=== PATIENT | male | born 1960 | race African-American/Black ===

== ENCOUNTER 2016-03-05 18:42 | Emergency (ER) | payer SELFPAY ==
[~2016-03-05] VITALS: Ht 188 cm; Wt 80.0 kg
[~2016-03-05 18:42] MED LIST: NAPR550T3 PO
[2016-03-05 18:45] VITALS: BP 147/70; PULSE 113; RESP 16; TEMP 98.5; O2SAT 98
[2016-03-05] MEDS ORDERED: SODIUM CHLOR 0.9% 1000 ML INJ 1,000 ML IV SCH (19:34)
[2016-03-05] MEDS ORDERED: ONDANSETRON HCL 4 MG/2 ML VIAL IVP ONE (19:45)
[2016-03-05] MEDS ORDERED: SODIUM CHLORIDE 0.9% FLUSH 5 ML FLUSH IVF PRN (19:45)
--- NOTE | 2016-03-05 20:14 | PD ---
HPI Chief Complaint: GI Complaint Time Seen by Provider: 19:29 Travel History International Travel<30 days: No Contact w/Intl Traveler<30days: No Traveled to known affect area: No History of Present Illness HPI 55-year-old male here for evaluation of nausea, vomiting, and abdominal discomfort. Symptoms started today. Emesis is nonbloody/nonbilious. Abdominal discomfort is mainly epigastric, however patient describes a nauseousness throughout his stomach. No history of abdominal surgeries. No diarrhea. He has had subjective fevers and chills. No cough, CP, or dyspnea. PFSH Past Surgical History Other Surgery: Yes (RIGHT KNEE SURGERY) Social History Alcohol Use: Yes (OCCASSIONAL) Tobacco Use: Yes (1PACK A DAY) Substance Use: No Allergies-Medications (Allergen,Severity, Reaction): Coded Allergies: No Known Allergies (Verified , 12/30/15) Reported Meds & Prescriptions Reported Meds & Active Scripts Active No Active Prescriptions or Reported Medications Review of Systems Except as stated in HPI: all other systems reviewed are Neg Physical Exam Narrative GENERAL: Well-developed, well-nourished, comfortable, no acute distress. SKIN: Warm and dry. No rash. HEAD: Atraumatic. Normocephalic. EYES: Pupils equal and round. No scleral icterus. No injection or drainage. ENT: Mucous membranes pink and moist. NECK: Trachea midline. No JVD. No nuchal rigidity. CARDIOVASCULAR: Regular rate and rhythm. RESPIRATORY: No accessory muscle use. Clear to auscultation. Breath sounds equal bilaterally. GASTROINTESTINAL: Abdomen soft, nondistended. Moderate epigastric tenderness without rebound or guarding. Rest of abdomen is mildly tender. No peritoneal signs. Normal bowel sounds. MUSCULOSKELETAL: No obvious deformities. No clubbing. No cyanosis. No edema. NEUROLOGICAL: Awake and alert. No obvious cranial nerve deficits. Motor grossly within normal limits. Normal speech. PSYCHIATRIC: Appropriate mood and affect; insight and judgment normal. Data Data Last Documented VS Vital Signs Date Time Temp Pulse Resp B/P Pulse Ox O2 Delivery O2 Flow Rate FiO2 03/05/16 20:39 97 03/05/16 20:38 94 20 152/79 03/05/16 18:45 98.5 Orders Complete Blood Count With Diff (03/05/16 19:34) Comprehensive Metabolic Panel (03/05/16 19:34) Lipase (03/05/16 19:34) Prothrombin Time / Inr (Pt) (03/05/16 19:34) Act Partial Throm Time (Ptt) (03/05/16 19:34) Ct Abd/Pel W Iv Contrast(Rout) (03/05/16 19:34) Iv Access Insert/Monitor (03/05/16 19:34) Ecg Monitoring (03/05/16 19:34) Oximetry (03/05/16 19:34) Ondansetron Inj (Zofran Inj) (03/05/16 19:45) Sodium Chlor 0.9% 1000 Ml Inj (Ns 1000 M (03/05/16 19:34) Sodium Chloride 0.9% Flush (Ns Flush) (03/05/16 19:45) Electrocardiogram (03/05/16 19:34) Ckmb (Isoenzyme) Profile (03/05/16 19:34) Troponin I (03/05/16 19:34) Influenzae A/B Antigen (03/05/16 19:38) Pantoprazole Inj (Protonix Inj) (03/05/16 20:15) Al-Mag Hy-Si 40-40-4 Mg/Ml Liq (Mag-Al P (03/05/16 20:15) Lidocaine 2% Viscous (Xylocaine 2% Visco (03/05/16 20:15) CKMB (03/05/16 20:00) CKMB% (03/05/16 20:00) Labs Laboratory Tests Test 03/05/16 20:00 White Blood Count 11.7 TH/MM3 Red Blood Count 4.49 MIL/MM3 Hemoglobin 13.3 GM/DL Hematocrit 40.0 % Mean Corpuscular Volume 89.2 FL Mean Corpuscular Hemoglobin 29.7 PG Mean Corpuscular Hemoglobin 33.3 % Concent Red Cell Distribution Width 14.9 % Platelet Count 497 TH/MM3 Mean Platelet Volume 8.6 FL Neutrophils (%) (Auto) 92.0 % Lymphocytes (%) (Auto) 3.1 % Monocytes (%) (Auto) 3.5 % Eosinophils (%) (Auto) 0.9 % Basophils (%) (Auto) 0.5 % Neutrophils # (Auto) 10.7 TH/MM3 Lymphocytes # (Auto) 0.4 TH/MM3 Monocytes # (Auto) 0.4 TH/MM3 Eosinophils # (Auto) 0.1 TH/MM3 Basophils # (Auto) 0.1 TH/MM3 CBC Comment DIFF FINAL Differential Comment Prothrombin Time 10.4 SEC Prothromb Time International 0.9 RATIO Ratio Activated Partial 26.2 SEC Thromboplast Time Sodium Level 137 MEQ/L Potassium Level 4.1 MEQ/L Chloride Level 103 MEQ/L Carbon Dioxide Level 22.9 MEQ/L Anion Gap 11 MEQ/L Blood Urea Nitrogen 19 MG/DL Creatinine 1.24 MG/DL Estimat Glomerular Filtration 74 ML/MIN Rate Random Glucose 103 MG/DL Calcium Level 9.4 MG/DL Total Bilirubin 0.6 MG/DL Aspartate Amino Transf 24 U/L (AST/SGOT) Alanine Aminotransferase 22 U/L (ALT/SGPT) Alkaline Phosphatase 144 U/L Total Creatine Kinase 356 U/L Creatine Kinase MB 2.6 NG/ML Creatine Kinase MB % 0.7 % Troponin I LESS THAN 0.02 NG/ML Total Protein 8.8 GM/DL Albumin 4.0 GM/DL Lipase 81 U/L [facility] Medical Decision Making Medical Screen Exam Complete: Yes Emergency Medical Condition: Yes Interpretation(s) EKG: Sinus, rate 82, normal axis, normal intervals, no acute ischemic abnormality. Differential Diagnosis Gastritis, enteritis, peptic ulcer disease, pancreatitis, hepatobiliary disease , viral illness, ACS Narrative Course Vital signs reviewed. CBC is essentially unremarkable. CMP is unremarkable. Cardiac enzymes are negative. Lipase is 81. At 9:00 PM at the end of my shift the patient was signed out to my nurse practitioner who will follow up with CT abdomen and pelvis and disposition the patient. Prior to this the patient was reassessed and is feeling a lot better after receiving antiemetics, Protonix, and GI cocktail. Scripts No Active Prescriptions or Reported Meds Paulino Ayala MD Mar 05, 2016 20:14
[2016-03-05] MEDS ORDERED: LIDOCAINE VISCOUS 2% SOLN 15 ML UDC PO ONE (20:15)
[2016-03-05] MEDS ORDERED: ALUMINUM/MAGNESIUM/SIMETH 30 ML CUP PO ONE (20:15)
[2016-03-05] MEDS ORDERED: PANTOPRAZOLE SODIUM 40 MG VIAL IVP ONE (20:15)
[2016-03-05 20:28] LABS: AUTOMATED NEUTROPHIL # 10.7 TH/MM3 (1.8-7.7); BASOPHIL # 0.1 TH/MM3 (0-0.2); BASOPHIL % 0.5 % (0.0-2.0); EOSINOPHIL # 0.1 TH/MM3 (0-0.4); EOSINOPHIL % 0.9 % (0.0-4.0); HEMO FLAGS DIFF FINAL; LYMPH % 3.1 % (9.0-44.0); LYMPHOCYTE # 0.4 TH/MM3 (1.0-4.8); MEAN CELL VOLUME 89.2 FL (80.0-100.0); MEAN CORPUSCULAR HEMOGLOBIN 29.7 PG (27.0-34.0); MEAN CORPUSCULAR HGB CONC 33.3 % (32.0-36.0); MONO % 3.5 % (0.0-8.0); PLATELET COUNT 497 TH/MM3 (150-450); RED BLOOD COUNT 4.49 MIL/MM3 (4.50-5.90); RED CELL DISTRIBUTION WIDTH 14.9 % (11.6-17.2); WHITE BLOOD COUNT 11.7 TH/MM3 (4.0-11.0)
[2016-03-05 20:34] LABS: APTT (PATIENT) 26.2 SEC (24.3-30.1); INTERNATIONAL NORMALIZED RATIO 0.9 RATIO; PROTHROMBIN TIME - PATIENT 10.4 SEC (9.8-11.6)
[2016-03-05 20:38] VITALS: BP 152/79; PULSE 94; RESP 20; O2SAT 97
[2016-03-05 20:39] VITALS: O2SAT 97
[2016-03-05 20:50] LABS: ALKALINE PHOSPHATASE 144 U/L (45-117); ALT (GPT) 22 U/L (12-78); ANION GAP 11 MEQ/L (5-15); AST (GOT) 24 U/L (15-37); BICARBONATE 22.9 MEQ/L (21.0-32.0); BLOOD UREA NITROGEN 19 MG/DL (7-18); CHLORIDE 103 MEQ/L (98-107); CREATINE KINASE 356 U/L (39-308); GLOMERULAR FILTRATION RATE 74 ML/MIN (>89); SODIUM (NA) 137 MEQ/L (136-145); TOTAL BILIRUBIN ADULT 0.6 MG/DL (0.2-1.0)
[2016-03-05 20:51] LABS: POTASSIUM 4.1 MEQ/L (3.5-5.1)
[2016-03-05 21:04] LABS: CKMB 2.6 NG/ML (0.5-3.6)
[2016-03-05] MEDS ORDERED: IOHEXOL 350 MG/ML 10 ML VIAL (for RAD DIAG) IV ONE (21:27)
[2016-03-05 21:48] VITALS: BP 143/77; PULSE 93; RESP 20; O2SAT 100
--- NOTE | 2016-03-05 21:53 | RADRPT ---
EXAM DATE/TIME: 03/05/2016 21:25 [facility] COMPARISON: No previous studies available for comparison. INDICATIONS : Nausea and vomiting starting today. IV CONTRAST: 94 cc Omnipaque 350 (iohexol) IV ORAL CONTRAST: No oral contrast ingested. RADIATION DOSE: 5.00 CTDIvol (mGy) MEDICAL HISTORY : None SURGICAL HISTORY : None. ENCOUNTER: Initial ACUITY: 1 day PAIN SCALE: 2/10 LOCATION: Bilateral abdomen TECHNIQUE: Volumetric scanning of the abdomen and pelvis was performed. Using automated exposure control and ad justment of the mA and/or kV according to patient size, radiation dose was kept as low as reasonably achievable to obtain optimal diagnostic quality images. FINDINGS: LOWER LUNGS: Minimal atelectasis in the posterior right lung base LIVER: Homogeneous density without lesion. There is no dilation of the biliary tree. No calcified gallston es. SPLEEN: Normal size without lesion. PANCREAS: Within normal limits. KIDNEYS: Normal in size and shape. There is no mass, stone or hydronephrosis. ADRENAL GLANDS: There is a large heterogeneous mass involving the left adrenal gland measuring 7 x 4.2 x 4.9 cm (sagi ttal x AP x transverse). The right adrenal gland is normal in appearance. VASCULAR: Patchy atherosclerotic calcification. No evidence of aneurysm. No major vessel occlusion. BOWEL/MESENTERY: The stomach is mildly distended with fluid and air. The first portion of the duodenum is mildly dilat ed. Beyond this, the duodenum is contracted, potentially with wall thickening in the second portion w hich may indicate a partially obstructing mural or mucosal process. Oral contrast was not given for t he exam which limits the evaluation. There is mild nonspecific fluid distention of other small bowel loops. The colon is grossly normal in caliber with stool throughout. ABDOMINAL WALL: Within normal limits. RETROPERITONEUM: There is no lymphadenopathy. BLADDER: No wall thickening or mass. REPRODUCTIVE: Within normal limits. INGUINAL: There is no lymphadenopathy or hernia. MUSCULOSKELETAL: Mild degenerative changes. CONCLUSION: Large left adrenal mass. Possible mural or mucosal process involving the duodenum. Marlon Burgess MD on March 05, 2016 at 21:41 Board Certified Radiologist. This report was verified electronically.
[2016-03-05] MEDS ORDERED: ZOFR4TAB3 SL (22:43)
--- NOTE | 2016-03-05 22:44 | PD ---
Physical Exam Time Seen by Provider: 22:40 Narrative Please refer to previous providers documentation for details surrounding the patient's current visit. Data Data Last Documented VS Vital Signs Date Time Temp Pulse Resp B/P Pulse Ox O2 Delivery O2 Flow Rate FiO2 03/05/16 21:48 93 20 143/77 100 03/05/16 18:45 98.5 Orders Complete Blood Count With Diff (03/05/16 19:34) Comprehensive Metabolic Panel (03/05/16 19:34) Lipase (03/05/16 19:34) Prothrombin Time / Inr (Pt) (03/05/16 19:34) Act Partial Throm Time (Ptt) (03/05/16 19:34) Ct Abd/Pel W Iv Contrast(Rout) (03/05/16 19:34) Iv Access Insert/Monitor (03/05/16 19:34) Ecg Monitoring (03/05/16 19:34) Oximetry (03/05/16 19:34) Ondansetron Inj (Zofran Inj) (03/05/16 19:45) Sodium Chlor 0.9% 1000 Ml Inj (Ns 1000 M (03/05/16 19:34) Sodium Chloride 0.9% Flush (Ns Flush) (03/05/16 19:45) Electrocardiogram (03/05/16 19:34) Ckmb (Isoenzyme) Profile (03/05/16 19:34) Troponin I (03/05/16 19:34) Influenzae A/B Antigen (03/05/16 19:38) Pantoprazole Inj (Protonix Inj) (03/05/16 20:15) Al-Mag Hy-Si 40-40-4 Mg/Ml Liq (Mag-Al P (03/05/16 20:15) Lidocaine 2% Viscous (Xylocaine 2% Visco (03/05/16 20:15) CKMB (03/05/16 20:00) CKMB% (03/05/16 20:00) Iohexol 350 Inj (Omnipaque 350 Inj) (03/05/16 21:27) Labs Laboratory Tests Test 03/05/16 20:00 White Blood Count 11.7 TH/MM3 Red Blood Count 4.49 MIL/MM3 Hemoglobin 13.3 GM/DL Hematocrit 40.0 % Mean Corpuscular Volume 89.2 FL Mean Corpuscular Hemoglobin 29.7 PG Mean Corpuscular Hemoglobin 33.3 % Concent Red Cell Distribution Width 14.9 % Platelet Count 497 TH/MM3 Mean Platelet Volume 8.6 FL Neutrophils (%) (Auto) 92.0 % Lymphocytes (%) (Auto) 3.1 % Monocytes (%) (Auto) 3.5 % Eosinophils (%) (Auto) 0.9 % Basophils (%) (Auto) 0.5 % Neutrophils # (Auto) 10.7 TH/MM3 Lymphocytes # (Auto) 0.4 TH/MM3 Monocytes # (Auto) 0.4 TH/MM3 Eosinophils # (Auto) 0.1 TH/MM3 Basophils # (Auto) 0.1 TH/MM3 CBC Comment DIFF FINAL Differential Comment Prothrombin Time 10.4 SEC Prothromb Time International 0.9 RATIO Ratio Activated Partial 26.2 SEC Thromboplast Time Sodium Level 137 MEQ/L Potassium Level 4.1 MEQ/L Chloride Level 103 MEQ/L Carbon Dioxide Level 22.9 MEQ/L Anion Gap 11 MEQ/L Blood Urea Nitrogen 19 MG/DL Creatinine 1.24 MG/DL Estimat Glomerular Filtration 74 ML/MIN Rate Random Glucose 103 MG/DL Calcium Level 9.4 MG/DL Total Bilirubin 0.6 MG/DL Aspartate Amino Transf 24 U/L (AST/SGOT) Alanine Aminotransferase 22 U/L (ALT/SGPT) Alkaline Phosphatase 144 U/L Total Creatine Kinase 356 U/L Creatine Kinase MB 2.6 NG/ML Creatine Kinase MB % 0.7 % Troponin I LESS THAN 0.02 NG/ML Total Protein 8.8 GM/DL Albumin 4.0 GM/DL Lipase 81 U/L [facility] Medical Record Reviewed: Yes Supervised Visit with ANAID: No Narrative Course Patient was signed out to me a CT imaging pending. CT imaging results a large left adrenal mass. Possible mural and mucosal process involving the duodenum. I discussed the patient my attending physician Dr. Wilcox, since Dr. Ayala has left, and she recommends admission for further evaluation of this. I discussed the patient with the hospitalist Dr. Avendaño who feels the patient can be worked up outpatient. This is discussed with the patient. He is in agreement with this plan of care however follow-up may be difficult due to no insurance no primary. A mandatory referral has been placed. Diagnosis Primary Impression: Nausea & vomiting Qualified Code: R11.14 - Bilious vomiting with nausea Additional Impression: Adrenal mass, left Referrals: Room Worker Primary Care Physician Patient Instructions: Acute Nausea and Vomiting (ED), General Instructions Additional Instruction: Follow-up with your primary care provider Maintain adequate oral hydration Return immediately to the emergency department with any acute worsening of symptoms Med/Other Pt SpecificInfo: Prescription(s) given Scripts Ondansetron Odt (Zofran Odt)4 Mg Tab4 Mg SL Q6HR PRN (Nausea/Vomiting) #15 TAB Ref 0 Prov:Lora Garza 03/05/16 Disposition: 01 DISCHARGE HOME Condition: Stable Lora Garza Mar 05, 2016 22:44
[2016-03-05] MEDS ORDERED: ACETAMINOPHEN 325 MG TAB PO ONE (22:45)
[2016-03-05 23:12] VITALS: BP 133/83
--- NOTE | 2016-03-06 19:31 | EKG ---
Date Performed: 03/05/2016 Time Performed: 20:15:39 PTAGE: 55 years EKG: Sinus rhythm NONSPECIFIC T-WAVE ABNORMALITY BORDERLINE ECG NO PREVIOUS TRACING DOCTOR: Anatoliy Townsend Interpretating Date/Time 03/06/2016 19:28:54
== END 2016-03-06 01:22 | disposition home or self-care (01) ==
LOC: NEPA 18:42
DX: E27.9 Disorder of adrenal gland, unspecified (principal); R94.31 Abnormal electrocardiogram [ECG] [EKG]; F17.210 Nicotine dependence, cigarettes, uncomplicated
CPT/HCPCS: 74177; 80053; 82550; 82552; 83690; 84484; 85025; 85610; 85730; 87804; 93005; 96361; 96374; 99284; C9113; J2405; J7030; Q9967

== ENCOUNTER 2016-10-20 12:16 | Emergency (ER) | payer SELFPAY ==
[~2016-10-20] VITALS: Ht 188 cm; Wt 80.0 kg
[~2016-10-20 12:16] MED LIST changes: -NAPR550T3 PO; +ZOFR4TAB3 SL
[2016-10-20 12:18] VITALS: BP 163/80; PULSE 80; RESP 20; TEMP 98.3; O2SAT 97
--- NOTE | 2016-10-20 14:15 | RADRPT ---
EXAM DATE/TIME: 10/20/2016 13:56 [facility] COMPARISON: No previous studies available for comparison. INDICATIONS : Left side chest pain and cramping. MEDICAL HISTORY : None. SURGICAL HISTORY : Right knee. ENCOUNTER: Initial ACUITY: 2 days PAIN SCORE: 6/10 LOCATION: Bilateral chest FINDINGS: PA and lateral views of the chest demonstrate the lungs to be symmetrically aerated without evidence of mass, infiltrate or effusion. The cardiomediastinal contours are unremarkable. Osseous structure s are intact. CONCLUSION: 1. No acute cardiopulmonary disease. Duncan Miranda MD on October 20, 2016 at 14:13 Board Certified Radiologist. This report was verified electronically.
[2016-10-20 14:30] LABS: AUTOMATED NEUTROPHIL # 7.8 TH/MM3 (1.8-7.7); BASOPHIL # 0.1 TH/MM3 (0-0.2); BASOPHIL % 1.3 % (0.0-2.0); EOSINOPHIL # 0.2 TH/MM3 (0-0.4); EOSINOPHIL % 2.2 % (0.0-4.0); HEMATOCRIT 31.8 % (39.0-51.0); HEMO FLAGS DIFF FINAL; LYMPHOCYTE # 1.3 TH/MM3 (1.0-4.8); MEAN CELL VOLUME 86.7 FL (80.0-100.0); MEAN CORPUSCULAR HEMOGLOBIN 26.9 PG (27.0-34.0); MONO % 4.1 % (0.0-8.0); NEUT % 79.4 % (16.0-70.0); PLATELET COUNT 657 TH/MM3 (150-450); RED BLOOD COUNT 3.67 MIL/MM3 (4.50-5.90); RED CELL DISTRIBUTION WIDTH 16.6 % (11.6-17.2); WHITE BLOOD COUNT 9.8 TH/MM3 (4.0-11.0)
[2016-10-20 14:47] LABS: ANION GAP 8 MEQ/L (5-15); BICARBONATE 30.4 MEQ/L (21.0-32.0); BLOOD UREA NITROGEN 13 MG/DL (7-18); CHLORIDE 103 MEQ/L (98-107); GLOMERULAR FILTRATION RATE 73 ML/MIN (>89); POTASSIUM 3.9 MEQ/L (3.5-5.1); SODIUM (NA) 141 MEQ/L (136-145)
[2016-10-20 14:50] LABS: CREATINE KINASE 439 U/L (39-308)
[2016-10-20 15:03] LABS: CKMB 5.9 NG/ML (0.5-3.6)
--- NOTE | 2016-10-20 15:29 | PD ---
Physical Exam Date Seen by Provider: Oct 20, 2016 Time Seen by Provider: 15:28 Narrative 56 yr old male here with c/o chest pain. He is awaiting bed placement. Protocol labs have been drawn. Troponin is negative. Data Data Last Documented VS Vital Signs Date Time Temp Pulse Resp B/P (MAP) Pulse Ox O2 Delivery O2 Flow Rate FiO2 10/20/16 12:18 98.3 80 20 163/80 (107) 97 Orders Orders Electrocardiogram (10/20/16 13:08) Complete Blood Count With Diff (10/20/16 13:08) Basic Metabolic Panel (Bmp) (10/20/16 13:08) Ckmb (Isoenzyme) Profile (10/20/16 13:08) Troponin I (10/20/16 13:08) Iv Access Insert/Monitor (10/20/16 13:08) Ecg Monitoring (10/20/16 13:08) Oxygen Administration (10/20/16 13:08) Oximetry (10/20/16 13:08) Chest, Pa & Lat (10/20/16 13:08) CKMB (10/20/16 13:35) CKMB% (10/20/16 13:35) Labs Laboratory Tests Test 10/20/16 13:35 White Blood Count 9.8 TH/MM3 Red Blood Count 3.67 MIL/MM3 Hemoglobin 9.8 GM/DL Hematocrit 31.8 % Mean Corpuscular Volume 86.7 FL Mean Corpuscular Hemoglobin 26.9 PG Mean Corpuscular Hemoglobin Concent 31.0 % Red Cell Distribution Width 16.6 % Platelet Count 657 TH/MM3 Mean Platelet Volume 7.9 FL Neutrophils (%) (Auto) 79.4 % Lymphocytes (%) (Auto) 13.0 % Monocytes (%) (Auto) 4.1 % Eosinophils (%) (Auto) 2.2 % Basophils (%) (Auto) 1.3 % Neutrophils # (Auto) 7.8 TH/MM3 Lymphocytes # (Auto) 1.3 TH/MM3 Monocytes # (Auto) 0.4 TH/MM3 Eosinophils # (Auto) 0.2 TH/MM3 Basophils # (Auto) 0.1 TH/MM3 CBC Comment DIFF FINAL Differential Comment Blood Urea Nitrogen 13 MG/DL Creatinine 1.24 MG/DL Random Glucose 203 MG/DL Calcium Level 9.1 MG/DL Sodium Level 141 MEQ/L Potassium Level 3.9 MEQ/L Chloride Level 103 MEQ/L Carbon Dioxide Level 30.4 MEQ/L Anion Gap 8 MEQ/L Estimat Glomerular Filtration Rate 73 ML/MIN Total Creatine Kinase 439 U/L Creatine Kinase MB 5.9 NG/ML Creatine Kinase MB % 1.3 % Troponin I LESS THAN 0.02 NG/ML MDM Medical Record Reviewed: Yes Supervised Visit with ANAID: No Condition: Stable Hattie Canales Oct 20, 2016 15:29
[2016-10-20 16:36] VITALS: BP 189/100; PULSE 71; RESP 18; TEMP 98.2; O2SAT 100
[2016-10-20 16:48] VITALS: BP 169/85; PULSE 76; RESP 18; TEMP 98.2; O2SAT 100
--- NOTE | 2016-10-20 16:58 | PD ---
HPI . chest pain intermittently few days Chief Complaint: Cardiac Complaint Time Seen by Provider: 16:54 Travel History International Travel<30 days: No Contact w/Intl Traveler<30days: No Traveled to known affect area: No History of Present Illness HPI 56-year-old male with no known past medical history here with complaints of chest pain intermittently for the past several days. Patient rates the pain as a mild pain that comes and goes. He thinks that it may be some pulled muscles. He denies any associated nausea, vomiting, diaphoresis or shortness of breath. He does admit to marijuana and cocaine usage. PFSH Past Surgical History Other Surgery: Yes (RIGHT KNEE SURGERY) Social History Alcohol Use: Yes (OCCASSIONAL) Tobacco Use: Yes (1PACK A DAY) Substance Use: Yes (marijuana) Allergies-Medications (Allergen,Severity, Reaction): Coded Allergies: No Known Allergies (Verified , 10/20/16) Reported Meds & Prescriptions Reported Meds & Active Scripts Active Zofran Odt (Ondansetron Odt) 4 Mg Tab 4 Mg SL Q6HR PRN Review of Systems General / Constitutional: No: Fever Eyes: No: Visual changes HENT: No: Headaches Cardiovascular: Positive: Chest Pain or Discomfort Respiratory: No: Shortness of Breath Gastrointestinal: No: Abdominal Pain Genitourinary: No: Dysuria Musculoskeletal: No: Pain Skin: No Rash Neurologic: No: Weakness Psychiatric: No: Depression Endocrine: No: Polydipsia Hematologic/Lymphatic: No: Easy Bruising Physical Exam Narrative GENERAL: AAO x 3, no acute distress, Well-nourished, well-developed patient. SKIN: Warm and dry. No visible rashes or bruising. HEAD: Normocephalic and atraumatic. EYES: No scleral icterus. No injection or drainage. EOM intact, PERRLA ENT: No nasal drainage noted. Mucous membranes pink. Airway patent. NECK: Supple, trachea midline. No JVD. CARDIOVASCULAR: Regular rate and rhythm without murmurs, gallops, or rubs. No reproducible chest pain on examination RESPIRATORY: Breath sounds equal bilaterally. No accessory muscle use. No rhonchi or rales. GASTROINTESTINAL: Abdomen soft, non-tender, nondistended. No rebound or guarding EXTREMITIES: No cyanosis or edema. BACK: Nontender without obvious deformity. No CVA tenderness. NEURO: CN II-12 intact, rippler strength normal b/l, UE and LE 5/5, no focal deficits PSYCH: AAO x 3, normal affect. Data Data Last Documented VS Vital Signs Date Time Temp Pulse Resp B/P (MAP) Pulse Ox O2 Delivery O2 Flow Rate FiO2 10/20/16 16:48 98.2 76 18 169/85 (113) 100 10/20/16 16:36 Room Air Orders Orders Electrocardiogram (10/20/16 13:08) Complete Blood Count With Diff (10/20/16 13:08) Basic Metabolic Panel (Bmp) (10/20/16 13:08) Ckmb (Isoenzyme) Profile (10/20/16 13:08) Troponin I (10/20/16 13:08) Iv Access Insert/Monitor (10/20/16 13:08) Ecg Monitoring (10/20/16 13:08) Oxygen Administration (10/20/16 13:08) Oximetry (10/20/16 13:08) Chest, Pa & Lat (10/20/16 13:08) CKMB (10/20/16 13:35) CKMB% (10/20/16 13:35) Admit Order (Ed Use Only) (10/20/16 17:04) Labs Laboratory Tests Test 10/20/16 13:35 White Blood Count 9.8 TH/MM3 Red Blood Count 3.67 MIL/MM3 Hemoglobin 9.8 GM/DL Hematocrit 31.8 % Mean Corpuscular Volume 86.7 FL Mean Corpuscular Hemoglobin 26.9 PG Mean Corpuscular Hemoglobin Concent 31.0 % Red Cell Distribution Width 16.6 % Platelet Count 657 TH/MM3 Mean Platelet Volume 7.9 FL Neutrophils (%) (Auto) 79.4 % Lymphocytes (%) (Auto) 13.0 % Monocytes (%) (Auto) 4.1 % Eosinophils (%) (Auto) 2.2 % Basophils (%) (Auto) 1.3 % Neutrophils # (Auto) 7.8 TH/MM3 Lymphocytes # (Auto) 1.3 TH/MM3 Monocytes # (Auto) 0.4 TH/MM3 Eosinophils # (Auto) 0.2 TH/MM3 Basophils # (Auto) 0.1 TH/MM3 CBC Comment DIFF FINAL Differential Comment Blood Urea Nitrogen 13 MG/DL Creatinine 1.24 MG/DL Random Glucose 203 MG/DL Calcium Level 9.1 MG/DL Sodium Level 141 MEQ/L Potassium Level 3.9 MEQ/L Chloride Level 103 MEQ/L Carbon Dioxide Level 30.4 MEQ/L Anion Gap 8 MEQ/L Estimat Glomerular Filtration Rate 73 ML/MIN Total Creatine Kinase 439 U/L Creatine Kinase MB 5.9 NG/ML Creatine Kinase MB % 1.3 % Troponin I LESS THAN 0.02 NG/ML MDM Medical Decision Making Medical Screen Exam Complete: Yes Emergency Medical Condition: Yes Medical Record Reviewed: Yes Differential Diagnosis chest pain, ACS, drug abuse Narrative Course 56-year-old male here with complaints of chest pain. Protocols were ordered in triage. Patient appears to have newly diagnosed diabetes. I discussed the preliminary findings with patient and recommend admission to the chest pain center. I also ordered A1c. I stressed need for admission for further testing of cardiac enzymes etc. 1740: Patient decided to leave against medical advice. Admitting Information Admitting Physician Requests: Admit Disposition: AGAINST MEDICAL ADVICE Condition: Stable Hattie Canales Oct 20, 2016 16:58
[2016-10-20] MEDS ORDERED: SODIUM CHLORIDE 0.9% FLUSH 10 ML FLUSH IV FLUSH PRN (17:15)
[2016-10-20] MEDS ORDERED: metFORMIN HCL 500 MG TAB PO SCH (18:00)
[2016-10-20] MEDS ORDERED: SODIUM CHLORIDE 0.9% FLUSH 10 ML FLUSH IV FLUSH SCH (21:00)
--- NOTE | 2016-10-21 09:59 | EKG ---
Date Performed: 10/20/2016 Time Performed: 13:22:00 PTAGE: 56 years EKG: Sinus rhythm NONSPECIFIC T-WAVE ABNORMALITY BORDERLINE ECG PREVIOUS TRACING : 03/05/2016 20.15 DOCTOR: Jad Mo Interpretating Date/Time 10/21/2016 09:58:14
== END 2016-10-20 17:40 | disposition left against medical advice (07) ==
LOC: NEPD 12:16 → NEDA 17:06 → UNDOADMOB 17:06 → NEPD 17:40
DX: R07.9 Chest pain, unspecified (principal); F17.200 Nicotine dependence, unspecified, uncomplicated
CPT/HCPCS: 71020; 80048; 82550; 82552; 84484; 85025; 93005; 99285

== ENCOUNTER 2016-10-22 01:22 | Emergency (ER) | payer SELFPAY ==
[~2016-10-22] VITALS: Ht 188 cm; Wt 75.0 kg
[2016-10-22 01:25] VITALS: BP 191/93; PULSE 84; RESP 16; TEMP 97.8; O2SAT 99
[2016-10-22] MEDS ORDERED: IBUPROFEN 800 MG TAB PO ONE (01:45)
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
[2016-10-22] MEDS ORDERED: CEPH-460 PO (02:08)
[2016-10-22] MEDS ORDERED: DICL75TA PO (02:08)
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
== END 2016-10-22 02:36 | disposition home or self-care (01) ==
LOC: NEPD 01:22
DX: S80.12XA Contusion of left lower leg, initial encounter (principal); S81.812A Laceration without foreign body, left lower leg, initial encounter; V23.4XXA Motorcycle driver injured in collision with car, pick-up truck or van in traffic accident, initial encounter; Y92.414 Local residential or business street as the place of occurrence of the external cause
CPT/HCPCS: 73590; 99283

== ENCOUNTER 2016-11-14 10:20 | Observation (INO) | payer SELFPAY ==
[~2016-11-14] VITALS: Ht 188 cm; Wt 72.8 kg
[2016-11-14] VITALS (9 sets, daily range): BP systolic 127–170; BP diastolic 64–92; PULSE 82–92; RESP 16–18; TEMP 97.3–98.4; O2SAT 99–100
[~2016-11-14 10:20] MED LIST changes: +CEPH-460 PO; +DICL75TA PO; -ZOFR4TAB3 SL
[2016-11-14] MEDS ORDERED: SODIUM CHLOR 0.9% 1000 ML INJ 1,000 ML IV SCH (11:08)
--- NOTE | 2016-11-14 11:14 | PD ---
HPI Chief Complaint: Chest Pain Time Seen by Provider: 11:03 Travel History International Travel<30 days: No Contact w/Intl Traveler<30days: No Traveled to known affect area: No History of Present Illness HPI Patient comes in complaining of left upper quadrant abdominal cramping ongoing intermittently for several weeks. Pain radiates into his left lower chest describes as a soreness that is worse with deep inspiration. Denies anything making it better. Patient states he was seen here 2 weeks ago for similar and just not resolved yet. Patient denies any shortness of breath, fevers, nausea, vomiting, diarrhea, back pain, headache, change in vision, numbness or tingling anywhere, or loss change in bowel or bladder. PFSH Past Medical History Cardiovascular Problems: Yes Chest Pain: Yes Diminished Hearing: No Tetanus Vaccination: < 5 Years Influenza Vaccination: No Past Surgical History Other Surgery: Yes (RIGHT KNEE SURGERY) Social History Alcohol Use: Yes (OCCASSIONAL) Tobacco Use: Yes (1PACK A DAY) Substance Use: Yes (marijuana) Allergies-Medications (Allergen,Severity, Reaction): Coded Allergies: No Known Allergies (Verified , 10/20/16) Reported Meds & Prescriptions Reported Meds & Active Scripts Active No Active Prescriptions or Reported Medications Review of Systems Except as stated in HPI: all other systems reviewed are Neg Physical Exam Narrative GENERAL: Well-developed, well nourished, in no acute distress, and non-ill appearing. Eating a sandwich. SKIN: Focused skin assessment warm and dry. HEAD: Atraumatic. Normocephalic. EYES: Pupils equal and round. EOMI. No scleral icterus. No injection or drainage. ENT: No nasal bleeding or discharge. Mucous membranes pink and moist. NECK: Trachea midline. No JVD. Supple. No nuclear rigidity. CARDIOVASCULAR: Regular rate and rhythm. No murmur appreciated. RESPIRATORY: No accessory muscle use. No respiratory distress. Clear to auscultation. Breath sounds equal bilaterally. GASTROINTESTINAL: Abdomen soft, non-tender, nondistended, and no guarding. Hepatic and splenic margins not palpable. Normal bowel sounds 4. No pulsatile mass. MUSCULOSKELETAL: No obvious deformities. No clubbing. No cyanosis. No edema. Full range of motion. NEUROLOGICAL: Awake and alert. No obvious cranial nerve deficits. Motor grossly within normal limits. Normal speech. PSYCHIATRIC: Appropriate mood and affect; insight and judgment normal. Data Data Last Documented VS Vital Signs Date Time Temp Pulse Resp B/P (MAP) Pulse Ox O2 Delivery O2 Flow Rate FiO2 11/14/16 13:42 97.8 83 16 146/89 (108) 100 Room Air Orders Orders Electrocardiogram (11/14/16 ) Complete Blood Count With Diff (11/14/16 11:08) Comprehensive Metabolic Panel (11/14/16 11:08) Lipase (11/14/16 11:08) Prothrombin Time / Inr (Pt) (11/14/16 11:08) Act Partial Throm Time (Ptt) (11/14/16 11:08) Iv Access Insert/Monitor (11/14/16 11:08) Ecg Monitoring (11/14/16 11:08) Oximetry (11/14/16 11:08) Sodium Chlor 0.9% 1000 Ml Inj (Ns 1000 M (11/14/16 11:08) Sodium Chloride 0.9% Flush (Ns Flush) (11/14/16 11:15) Chest, Single Ap (11/14/16 11:08) Ckmb (Isoenzyme) Profile (11/14/16 11:08) Magnesium (Mg) (11/14/16 11:08) Troponin I (11/14/16 11:08) CKMB (11/14/16 11:20) CKMB% (11/14/16 11:20) Ct Abd/Pel W Iv Contrast(Rout) (11/14/16 ) Direct Cheng (11/14/16 13:04) Indirect Cheng (11/14/16 13:04) Ferritin (11/14/16 13:25) Ldh Serum (11/14/16 13:25) Consult Hematology (11/14/16 ) Iohexol 350 Inj (Omnipaque 350 Inj) (11/14/16 13:30) Admit Order (Ed Use Only) (11/14/16 13:48) Labs Laboratory Tests Test 11/14/16 11:20 11/14/16 13:45 White Blood Count 8.1 TH/MM3 Red Blood Count 3.36 MIL/MM3 Hemoglobin 8.8 GM/DL Hematocrit 27.8 % Mean Corpuscular Volume 82.7 FL Mean Corpuscular Hemoglobin 26.2 PG Mean Corpuscular Hemoglobin Concent 31.7 % Red Cell Distribution Width 17.3 % Platelet Count 726 TH/MM3 Mean Platelet Volume 7.5 FL Neutrophils (%) (Auto) 69.7 % Lymphocytes (%) (Auto) 17.1 % Monocytes (%) (Auto) 11.0 % Eosinophils (%) (Auto) 1.7 % Basophils (%) (Auto) 0.5 % Neutrophils # (Auto) 5.7 TH/MM3 Lymphocytes # (Auto) 1.4 TH/MM3 Monocytes # (Auto) 0.9 TH/MM3 Eosinophils # (Auto) 0.1 TH/MM3 Basophils # (Auto) 0.0 TH/MM3 CBC Comment DIFF FINAL Differential Comment Prothrombin Time 10.0 SEC Prothromb Time International Ratio 0.9 RATIO Activated Partial Thromboplast Time 31.7 SEC Blood Urea Nitrogen 16 MG/DL Creatinine 1.06 MG/DL Random Glucose 108 MG/DL Total Protein 8.1 GM/DL Albumin 3.1 GM/DL Calcium Level 9.4 MG/DL Magnesium Level 2.0 MG/DL Alkaline Phosphatase 142 U/L Aspartate Amino Transf (AST/SGOT) 22 U/L Alanine Aminotransferase (ALT/SGPT) 21 U/L Total Bilirubin 0.2 MG/DL Sodium Level 138 MEQ/L Potassium Level 4.0 MEQ/L Chloride Level 103 MEQ/L Carbon Dioxide Level 24.9 MEQ/L Anion Gap 10 MEQ/L Estimat Glomerular Filtration Rate 88 ML/MIN Total Creatine Kinase 384 U/L Creatine Kinase MB 4.9 NG/ML Creatine Kinase MB % 1.3 % Troponin I LESS THAN 0.02 NG/ML Lipase 109 U/L MDM Medical Decision Making Medical Screen Exam Complete: Yes Emergency Medical Condition: Yes Interpretation(s) EKG reviewed by Dr. Triana shows normal sinus rhythm with ventricular rate of 78. No STEMI. Chest x-ray read by the radiologist shows: No acute disease. CT the abdomen and pelvis read by the radiologist shows: 1. Increase in size of heterogeneously enhancing left adrenal mass. Left adrenal carcinoma can have this appearance or other entities such as pheochromocytoma. 2. Atherosclerosis. Differential Diagnosis Electrolyte abnormality, dehydration, atypical chest pain, pancreatitis, anemia , other Narrative Course Patient was seen and examined. Initial laboratory and radiological studies were ordered. Patient is given IV fluid. Patient remained pain free throughout ED course. Discussed patient with Dr. Triana, is in agreement with plan of care and recommendations and patient admitted for further evaluation. Discussed this with the patient, who is agreeable for admission. All questions were answered. Discussed patient with hematology who is agreeable to consult the patient. Discussed patient with hospitalist, who is agreeable to admit the patient. Patient remained stable throughout ED course. HemaPrompt Point of Care Internal Pos. & Neg. Controls: Passed Fecal Specimen Occult Blood: Negative Comment Verbal consent was obtained. Digital rectal exam was performed. Stool specimen applied and test interpreted between 1 and 3 minutes of application and the result was negative. Internal Controls: Both positive and negative controls were validated. body and fender worker was present during this exam. Physician Communication Physician Communication [address] Duong, oncologist on-call, who requested a ferritin LDH study be added and he will be happy to consult on patient. [address] Norwood, who is agreeable to admit the patient. [address] Forman, who is agreeable to admit patient. Diagnosis Primary Impression: Abdominal pain Qualified Codes: R10.12 - Left upper quadrant pain Additional Impressions: Chest pain Qualified Codes: R07.9 - Chest pain, unspecified Anemia Qualified Codes: D64.9 - Anemia, unspecified Thrombophilia Adrenal mass, left Scripts No Active Prescriptions or Reported Meds Condition: Stable Jose Cordoba Nov 14, 2016 11:14
[2016-11-14] MEDS ORDERED: SODIUM CHLORIDE 0.9% FLUSH 10 ML FLUSH IV FLUSH PRN ×2 (11:15→15:00)
[2016-11-14 11:36] LABS: AUTOMATED NEUTROPHIL # 5.7 TH/MM3 (1.8-7.7); BASOPHIL % 0.5 % (0.0-2.0); EOSINOPHIL # 0.1 TH/MM3 (0-0.4); EOSINOPHIL % 1.7 % (0.0-4.0); HEMATOCRIT 27.8 % (39.0-51.0); HEMO FLAGS DIFF FINAL; LYMPH % 17.1 % (9.0-44.0); LYMPHOCYTE # 1.4 TH/MM3 (1.0-4.8); MEAN CELL VOLUME 82.7 FL (80.0-100.0); MEAN CORPUSCULAR HEMOGLOBIN 26.2 PG (27.0-34.0); MEAN CORPUSCULAR HGB CONC 31.7 % (32.0-36.0); NEUT % 69.7 % (16.0-70.0); PLATELET COUNT 726 TH/MM3 (150-450); RED BLOOD COUNT 3.36 MIL/MM3 (4.50-5.90); RED CELL DISTRIBUTION WIDTH 17.3 % (11.6-17.2); WHITE BLOOD COUNT 8.1 TH/MM3 (4.0-11.0)
[2016-11-14 11:45] LABS: APTT (PATIENT) 31.7 SEC (24.3-30.1); INTERNATIONAL NORMALIZED RATIO 0.9 RATIO
[2016-11-14 11:57] LABS: ANION GAP 10 MEQ/L (5-15); AST (GOT) 22 U/L (15-37); BICARBONATE 24.9 MEQ/L (21.0-32.0); BLOOD UREA NITROGEN 16 MG/DL (7-18); CHLORIDE 103 MEQ/L (98-107); GLOMERULAR FILTRATION RATE 88 ML/MIN (>89); SODIUM (NA) 138 MEQ/L (136-145)
[2016-11-14 11:58] LABS: ALT (GPT) 21 U/L (12-78)
[2016-11-14 12:02] LABS: ALKALINE PHOSPHATASE 142 U/L (45-117); CREATINE KINASE 384 U/L (39-308); TOTAL BILIRUBIN ADULT 0.2 MG/DL (0.2-1.0)
[2016-11-14 12:14] LABS: CKMB 4.9 NG/ML (0.5-3.6)
--- NOTE | 2016-11-14 12:53 | RADRPT ---
EXAM DATE/TIME: 11/14/2016 11:29 [facility] COMPARISON: No previous studies available for comparison. INDICATIONS : Left lower chest pains radiating to midsternal and left shoulder. Left upper abdomen pains. MEDICAL HISTORY : Venous insufficiency. SURGICAL HISTORY : None. ENCOUNTER: Initial ACUITY: 2 days PAIN SCORE: 10/10 LOCATION: Left chest FINDINGS: A single view of the chest demonstrates the lungs to be symmetrically aerated without evidence of mas s, infiltrate or effusion. The cardiomediastinal contours are unremarkable. Osseous structures are intact. CONCLUSION: No acute disease. Hood Schaefer MD on November 14, 2016 at 12:51 Board Certified Radiologist. This report was verified electronically.
--- NOTE | 2016-11-14 12:55 | EKG ---
Date Performed: 11/14/2016 Time Performed: 10:38:38 PTAGE: 56 years EKG: Normal Sinus rhythm Previous flattened T-waves have resolved BORDERLINE ECG PREVIOUS TRACING : 10/20/2016 13.22 DOCTOR: Josafat Hassan Interpretating Date/Time 11/14/2016 12:54:27
[2016-11-14] MEDS ORDERED: IOHEXOL 350 MG/ML 10 ML VIAL (for RAD DIAG) IVCONTRAST ONE ×2 (13:30→13:52)
--- NOTE | 2016-11-14 14:05 | RADRPT ---
EXAM DATE/TIME: 11/14/2016 13:22 [facility] COMPARISON: CT ABDOMEN & PELVIS W CONTRAST, March 05, 2016, 21:25. INDICATIONS : Abdominal pain and chest pain for several weeks. IV CONTRAST: 100 cc Omnipaque 350 (iohexol) IV ORAL CONTRAST: No oral contrast ingested. RADIATION DOSE: 4.59 CTDIvol (mGy) MEDICAL HISTORY : Cardiovascular disease. SURGICAL HISTORY : None. ENCOUNTER: Initial ACUITY: 1 day PAIN SCALE: 0/10 LOCATION: Bilateral upper quadrant TECHNIQUE: Volumetric scanning of the abdomen and pelvis was performed. Using automated exposure control and ad justment of the mA and/or kV according to patient size, radiation dose was kept as low as reasonably achievable to obtain optimal diagnostic quality images. DICOM format image data is available electro nically for review and comparison. FINDINGS: Lung bases are clear. Degenerative disc disease of moderate to severe degree at L3-4 through L5-S1. N o pleural or pericardial effusions. Liver, gallbladder, kidneys, pancreas are unremarkable. The right adrenal gland is normal. Stomach unremarkable. The spleen is small in size. There is a heterogeneous ly enhancing mass in the expected location of the left adrenal gland measuring 5.2 x 4.8 cm in AP and transverse dimension. This has been described previously, and this is increased in size on the previ ous study. Urinary bladder is unremarkable. Atherosclerotic calcifications of the aorta and iliac ves sels are noted. CONCLUSION: 1. Increase in size of heterogeneously enhancing left adrenal mass. Left adrenal carcinoma can have t his appearance or other entities such as pheochromocytoma. 2. Atherosclerosis. Hood Schaefer MD on November 14, 2016 at 14:00 Board Certified Radiologist. This report was verified electronically.
[2016-11-14 14:53] LABS: FERRITIN 16 NG/ML (26-388); LDH SERUM 197 U/L (87-241)
[2016-11-14] MEDS ORDERED: LACTULOSE SYRUP 20 GM/30 ML CUP PO PRN (15:00)
[2016-11-14] MEDS ORDERED: NALOXONE HCL 0.4 MG/ML AMP IV PUSH PRN (15:00)
[2016-11-14] MEDS ORDERED: SENNOSIDES 8.6 MG TAB PO PRN (15:00)
[2016-11-14] MEDS ORDERED: BISACODYL 10 MG SUPP RECTAL PRN (15:00)
[2016-11-14] MEDS ORDERED: ONDANSETRON HCL 4 MG/2 ML VIAL IVP PRN (15:00)
[2016-11-14] MEDS ORDERED: ACETAMINOPHEN 325 MG TAB PO PRN ×2 (15:00)
--- NOTE | 2016-11-14 15:03 | HHI.HP ---
[facility] Service [facility] ([place], [place])ists Primary Care Physician No Primary Care Physician Admission Diagnosis abdominal pain, chest pain, anemia, thrombophilia Diagnoses: (1) Anemia (2) Abdominal pain (3) Adrenal mass, left Chief Complaint: Left sided abdominal pain Travel History International Travel<30 Days: No Contact w/Intl Traveler <30 Da: No Traveled to Known Affected Are: No History of Present Illness Written by Edith Mathews, acting as scribe for Dr. Forman on 11/14/16 at 14: 54. Mr. Ferrer is a 56-year-old male patient with a known medical history of hypertension and tobacco use who presented to the ED with complaints of left upper quadrant abdominal pain. Patient states he awoke this morning with excruciating left abdominal pain that radiated up to his left chest area. Inspiration seems to make the pain worse. Does admit to associated nausea and diaphoresis, denies any vomiting. States that this pain is similar to "muscle soreness after working out". He does state he came in a couple weeks ago with similar complaints but left against medical advice due to job regulations and commitments. Patient denies any recent change in bowels, denies any diarrhea or constipation. Denies hematochezia. Denies ever having a colonoscopy or GI workup. Denies any recent fever, chills, headache, cough shortness of breath, dizziness, lightheadedness, vision changes, diplopia or dysuria. Patient does admit to a paternal medical history significant for colon cancer. Review of Systems Constitutional: COMPLAINS OF: Diaphoretic episodes, DENIES: Fever, Chills Eyes: DENIES: Blurred vision, Vision loss Respiratory: DENIES: Cough, Sputum production, Shortness of breath Cardiovascular: DENIES: Chest pain, Palpitations Gastrointestinal: COMPLAINS OF: Abdominal pain, Nausea, DENIES: Black stools, Bloody stools, Constipation, Diarrhea, Vomiting Musculoskeletal: DENIES: Joint pain Except as stated in HPI: all other systems reviewed are Neg Past Family Social History Past Medical History Borderline hypertension, not on medication. Tobacco abuse. Cocaine and marijuana use. Past Surgical History Right knee surgery as a child. Reported Medications \\Active No Active Prescriptions or Reported Medications Allergies: Coded Allergies: No Known Allergies (Verified , 10/20/16) Active Ordered Medications Current Medications Medications (Trade) Dose Ordered Sig/Yordan Route Start Time Stop Time Status Last Admin (NS Flush) 2 ml UNSCH PRN IV FLUSH 11/14/16 11:15 11/14/16 11:39 Family History Paternal medical history significant for colon cancer. Maternal medical history significant for lung cancer and hypertension. Social History Does admit to smoking 1 ppd cigarettes. Does admit to drinking 6 pack per day of beer. Does admit to recreational cocaine and marijuana use, last use 4 days ago. Physical Exam Vital Signs Vital Signs Date Time Temp Pulse Resp B/P (MAP) Pulse Ox O2 Delivery O2 Flow Rate FiO2 11/14/16 14:32 97.8 86 17 157/82 (107) 99 Room Air 11/14/16 13:42 97.8 83 16 146/89 (108) 100 Room Air 11/14/16 12:38 97.8 82 16 144/68 (93) 100 Room Air 11/14/16 11:39 97.8 89 17 127/64 (85) 99 Room Air 11/14/16 11:10 17 99 Room Air 11/14/16 10:34 81 16 100 Room Air 11/14/16 10:22 98.4 92 18 170/85 (113) 100 Physical Exam GENERAL: This is a well-nourished, well-developed male patient, lying in bed in no apparent distress. SKIN: No rashes. Warm and dry. Left calf with healing abrasion, EBONIE, no drainage , scab noted. HEENT: Atraumatic. Normocephalic. Pupils equal round and reactive. Extraocular motions intact. No scleral icterus. No injection or drainage. Nose without bleeding. Throat without erythema, tonsillar hypertrophy or exudate. Uvula midline. Airway patent. NECK: Trachea midline. No JVD. Supple. CARDIOVASCULAR: Regular rate and rhythm without murmurs, gallops, or rubs. No reproducible pain in left chest area. RESPIRATORY: Clear to auscultation. Breath sounds equal bilaterally. No wheezes , rales, or rhonchi. GASTROINTESTINAL: Abdomen soft, nondistended. No guarding. Slight pain to palpation in upper left quadrant. MUSCULOSKELETAL: Extremities without clubbing, cyanosis, or edema. No joint tenderness, effusion, or edema noted. NEUROLOGICAL: Awake and alert. Cranial nerves II through XII intact. Motor and sensory grossly within normal limits. Five out of 5 muscle strength in all muscle groups. Normal speech. Laboratory Laboratory Tests Test 11/14/16 11:20 11/14/16 13:45 White Blood Count 8.1 Red Blood Count 3.36 Hemoglobin 8.8 Hematocrit 27.8 Mean Corpuscular Volume 82.7 Mean Corpuscular Hemoglobin 26.2 Mean Corpuscular Hemoglobin Concent 31.7 Red Cell Distribution Width 17.3 Platelet Count 726 Mean Platelet Volume 7.5 Neutrophils (%) (Auto) 69.7 Lymphocytes (%) (Auto) 17.1 Monocytes (%) (Auto) 11.0 Eosinophils (%) (Auto) 1.7 Basophils (%) (Auto) 0.5 Neutrophils # (Auto) 5.7 Lymphocytes # (Auto) 1.4 Monocytes # (Auto) 0.9 Eosinophils # (Auto) 0.1 Basophils # (Auto) 0.0 CBC Comment DIFF FINAL Differential Comment Prothrombin Time 10.0 Prothromb Time International Ratio 0.9 Activated Partial Thromboplast Time 31.7 Blood Urea Nitrogen 16 Creatinine 1.06 Random Glucose 108 Total Protein 8.1 Albumin 3.1 Calcium Level 9.4 Magnesium Level 2.0 Alkaline Phosphatase 142 Aspartate Amino Transf (AST/SGOT) 22 Alanine Aminotransferase (ALT/SGPT) 21 Total Bilirubin 0.2 Sodium Level 138 Potassium Level 4.0 Chloride Level 103 Carbon Dioxide Level 24.9 Anion Gap 10 Estimat Glomerular Filtration Rate 88 Total Creatine Kinase 384 Creatine Kinase MB 4.9 Creatine Kinase MB % 1.3 Troponin I LESS THAN 0.02 Lipase 109 Ferritin 16 Lactate Dehydrogenase 197 Result Diagram: 11/14/16 1120 11/14/16 1120 Imaging Last Impressions Chest X-Ray 11/14/16 1108 Signed Impressions: Service Date/Time: Monday, November 14, 2016 11:29 - CONCLUSION: No acute disease. Hood Schaefer MD Abdomen/Pelvis CT 11/14/16 0000 Signed Impressions: Service Date/Time: Monday, November 14, 2016 13:22 - CONCLUSION: 1. Increase in size of heterogeneously enhancing left adrenal mass. Left adrenal carcinoma can have this appearance or other entities such as pheochromocytoma. 2. Atherosclerosis. MD Steve Multani VTE Risk Assessment Caprini VTE Risk Assessment: No/Low Risk (score <= 1) Caprini Risk Assessment Model Point Value = 1 Point Value = 2 Point Value = 3 Point Value = 5 Age 41-60 Minor surgery BMI > 25 kg/m2 Swollen legs Varicose veins or History of unexplained or recurrent spontaneous Oral contraceptives or hormone replacement Sepsis (< 1 month) Serious lung disease, including pneumonia (< 1 month) Abnormal pulmonary function Acute myocardial infarction Congestive heart failure (< 1 month) History of inflammatory bowel disease Medical patient at bed rest Age 61-74 Arthroscopic surgery Major open surgery (> 45 min) Laparoscopic surgery (> 45 min) Malignancy Confined to bed (> 72 hours) Immobilizing plaster cast Central venous access Age >= 75 History of VTE Family history of VTE Factor V Leiden Prothrombin [id number] Lupus anticoagulant Anticardiolipin antibodies Elevated serum homocysteine Heparin-induced thrombocytopenia Other congenital or acquired thrombophilia Stroke (< 1 month) Elective arthroplasty Hip, pelvis, or leg fracture Acute spinal cord injury (< 1 month) Prophylaxis Regimen Total Risk Factor Score Risk Level Prophylaxis Regimen 0-1 Low Early ambulation 2 Moderate Order ONE of the following: *Sequential Compression Device (SCD) *Heparin 5000 units SQ BID 3-4 Higher Order ONE of the following medications: *Heparin 5000 units SQ TID *Enoxaparin/Lovenox 40 mg SQ daily (WT < 150 kg, CrCl > 30 mL/min) *Enoxaparin/Lovenox 30 mg SQ daily (WT < 150 kg, CrCl > 10-29 mL/min) *Enoxaparin/Lovenox 30 mg SQ BID (WT < 150 kg, CrCl > 30 mL/min) AND/OR *Sequential Compression Device (SCD) 5 or more Highest Order ONE of the following medications: *Heparin 5000 units SQ TID (Preferred with Epidurals) *Enoxaparin/Lovenox 40 mg SQ daily (WT < 150 kg, CrCl > 30 mL/min) *Enoxaparin/Lovenox 30 mg SQ daily (WT < 150 kg, CrCl > 10-29 mL/min) *Enoxaparin/Lovenox 30 mg SQ BID (WT < 150 kg, CrCl > 30 mL/min) AND *Sequential Compression Device (SCD) Assessment and Plan Assessment and Plan Mr. Ferrer is a 56-year-old male patient with a known medical history of hypertension and tobacco use who presented to the ED with complaints of left upper quadrant abdominal pain. Patient states he awoke this morning with excruciating left abdominal pain that radiated up to his left chest area. Left upper quadrant abdominal pain suspect secondary to left adrenal mass Normocytic hypochromic anemia Thrombocytosis, acute Elevated CPK and CK-MB - Abdomen/pelvis CT reviewed showing increase in size of heterogeneously enhancing left adrenal mass. - CXR reviewed showing no acute disease. - EKG reviewed showing NSR, no arrhythmias noted, no ST segment changes. - Hemoglobin 8.8/Hematocrit 27.8 on presentation. Platelets 726. CPK 384, CKMB 4.9. - Status post 1 L NS bolus given in ED. - ED physician spoke with hematology who recommended obtaining an LDH and ferritin level. Pending. Follow. - Hematology consulted, appreciate input. - BMP, CBC and repeat CPK ordered for am, follow. Hypertension: BP 170/85 on presentation. No history of hypertension, does not take any medication. Will continue to monitor and begin medication if needed, probably pain related. Continue to monitor BPs. Tobacco abuse Cocaine abuse - Counselled on cessation. DVT prophylaxis: SCDs This note was transcribed by vanessa Mathews. I, Dr. Andrew Forman personally performed the history, physical exam, and medical decision making; and confirmed the accuracy of the information in the transcribed note. Authenticated by Dr. Andrew Forman on 11/14/16 at 16:12. Problem Qualifiers (1) Anemia: Qualified Codes: D64.9 - Anemia, unspecified (2) Abdominal pain: Qualified Codes: R10.12 - Left upper quadrant pain Edith Mathews Nov 14, 2016 15:03 Andrew Forman MD Nov 14, 2016 16:13
[2016-11-14] MEDS: SODIUM CHLORIDE 0.9% FLUSH 10 ML FLUSH IV FLUSH SCH (21:00)
[2016-11-14] MEDS: ACETAMINOPHEN/HYDROcodone 325 MG/7.5 MG TAB PO PRN (21:02)
[2016-11-14 21:28] LABS: TRANSFERRIN IRON PROFILE 247 MG/DL (200-360)
--- NOTE | 2016-11-14 21:32 | MB ---
cc: FLACO MUÑOZ M.D., MATTHEW D. M.D. DATE OF CONSULTATION: 11/14/[address] Forman REASON FOR CONSULTATION Oncology consulted to render opinion guarding patient with possible left adrenal mass. HISTORY OF PRESENT ILLNESS The patient is a 56 year-old male who presented with increased left upper quadrant pain. He stated he has had pain in the left upper quadrant area for about a month. He came into the emergency room earlier this month, however, he left AMA because he had to go back to his work. He stated while working today he developed increased left upper quadrant pain. It radiated up to the left chest. He became nauseous but did not vomit. He came to the emergency room. He has lost about 20 pounds over the last two months. He had decreased appetite. He denies any night sweats, fevers, chills. Denies shortness of breath, cough. He denies dysuria, hematuria. He denies change in bowel habit or stool caliber. Denies mild hematochezia. PAST MEDICAL HISTORY: Hypertension. PAST SURGICAL HISTORY: Right knee surgery. FAMILY HISTORY: Father had colon cancer. Mother had lung cancer. He has five children, all healthy. SOCIAL HISTORY: He smoked a pack per day for at least 35 years. He drinks about six beers a day. He snorts cocaine once or twice a week. He smokes marijuana every day. He lives alone. He works in [employer]. ALLERGIES NO KNOWN DRUG ALLERGIES. MEDICATIONS He was not taking any outpatient medication. REVIEW OF SYSTEMS Constitutional: As above. Eyes: Negative. ENT: Negative. Cardiovascular: As above. Respiratory: As above. GI: As above. : Negative. Musculoskeletal: As above. Endocrine: Negative. Hematology: His father had anemia. Dermatology: Negative. Psychiatric: Negative. Neurologic: Negative. PHYSICAL EXAMINATION VITAL SIGNS: Temperature 98, blood pressure 142/76, O2 saturation 99% on room air. General: He is alert, oriented x3, in no acute distress. HEENT: Atraumatic, normocephalic. Pupils equal, round and reactive to light. Extraocular muscles intact. No scleral icterus. Oropharynx: dry mucosa. No lesion. Neck: No thyromegaly. No palpable masses. Lymphatic: No palpable cervical, clavicular, axillary lymph node. Cardiovascular: Regular S1-S2, no murmurs. Lungs: Clear to auscultation, bilateral wheezing. Abdomen: Soft. A little tender in the left upper quadrant. No rebound or rigidity. Positive bowel sounds. Extremities: No clubbing, cyanosis or edema. Skin: No rash. Neurologic: Nonfocal. LABORATORY DATA: Reviewed. ASSESSMENT: 1. Left upper quadrant pain. CT of the abdomen and pelvis showed a 5.2 cm mass in the location of the left adrenal gland. He had a CT of the abdomen and pelvis in February of this year which also showed the large left adrenal mass but it has now increased in size. This is worrisome for neoplasm. Unclear if this is metastatic disease or primary adrenal tumor. I am going to get CT of the chest for further evaluation. We will probably have to biopsy this left adrenal lesion. 2. Anemia with elevated RDW. He also has elevated platelet count. Will check iron study to rule out iron deficiency. He stated stool occult blood test was negative. 3. Mild thrombocytosis. This is likely reactive, could be due to underlying neoplasm or iron deficiency. Continue to monitor for now. 4. Polysubstance abuse. RECOMMENDATIONS: Get CT of the chest. Proceed with anemia workup. Check stool occult blood. May need to biopsy the left adrenal lesion pending findings from CT of the chest. Thank you, Dr. Forman, for asking me to see this patient. MD JESSICA Hamilton/RAIMUNDO /8:15 PM /8:52 PM SANA
[2016-11-14 21:53] LABS: RETIC % 2.6 % (0.4-3.0); REVIEW FLAG FINAL
[2016-11-15 00:42] VITALS: BP 149/85; PULSE 85; RESP 19; TEMP 97.9; O2SAT 99
[2016-11-15 04:36] VITALS: BP 140/80; PULSE 79; RESP 18; TEMP 98; O2SAT 100
[2016-11-15 07:53] VITALS: BP 133/74; PULSE 70; RESP 16; TEMP 97.9; O2SAT 98
[2016-11-15 08:32] LABS: BASOPHIL # 0.1 TH/MM3 (0-0.2); EOSINOPHIL # 0.2 TH/MM3 (0-0.4); EOSINOPHIL % 2.1 % (0.0-4.0); HEMATOCRIT 29.4 % (39.0-51.0); HEMO FLAGS DIFF FINAL; LYMPH % 16.8 % (9.0-44.0); LYMPHOCYTE # 1.4 TH/MM3 (1.0-4.8); MEAN CELL VOLUME 83.5 FL (80.0-100.0); MEAN CORPUSCULAR HEMOGLOBIN 26.2 PG (27.0-34.0); MEAN CORPUSCULAR HGB CONC 31.3 % (32.0-36.0); MONO % 9.5 % (0.0-8.0); NEUT % 70.6 % (16.0-70.0); PLATELET COUNT 718 TH/MM3 (150-450); RED BLOOD COUNT 3.51 MIL/MM3 (4.50-5.90); RED CELL DISTRIBUTION WIDTH 17.3 % (11.6-17.2); WHITE BLOOD COUNT 8.5 TH/MM3 (4.0-11.0)
[2016-11-15 08:46] LABS: POTASSIUM 3.9 MEQ/L (3.5-5.1)
[2016-11-15] MEDS: SODIUM CHLORIDE 0.9% FLUSH 10 ML FLUSH IV FLUSH SCH ×2 (09:00→21:00)
[2016-11-15 11:29] VITALS: BP 136/82; PULSE 85; RESP 16; TEMP 98; O2SAT 98
--- NOTE | 2016-11-15 12:40 | HHI.PR ---
Subjective Remarks Follow up adrenal mass. Patient seen and examined by myself and Dr. Forman. Lying in bed comfortably. Continued soreness to left upper quadrant. Awaiting CT scan today. Denies any recent fever, chills, headache, cough shortness of breath, dizziness, lightheadedness, vision changes, diplopia or dysuria. Tolerating PO intake. Ambulating well. VSS. Objective Vitals Vital Signs Date Time Temp Pulse Resp B/P (MAP) Pulse Ox O2 Delivery O2 Flow Rate FiO2 11/15/16 11:29 98.0 85 16 136/82 (100) 98 11/15/16 07:53 97.9 70 16 133/74 (93) 98 11/15/16 04:36 98.0 79 18 140/80 (100) 100 11/15/16 00:42 97.9 85 19 149/85 (106) 99 11/15/16 00:01 18 11/14/16 20:38 97.3 88 18 165/92 (116) 99 11/14/16 16:57 98.0 87 16 142/76 (98) 99 11/14/16 15:20 97.8 76 17 140/86 (104) 99 11/14/16 14:32 97.8 86 17 157/82 (107) 99 Room Air 11/14/16 13:42 97.8 83 16 146/89 (108) 100 Room Air I/O 11/14/16 11/14/16 11/14/16 11/15/16 11/15/16 11/15/16 07:00 15:00 23:00 07:00 15:00 23:00 Intake Total 1000 ml 200 ml 200 ml Balance 1000 ml 200 ml 200 ml Intake Oral 200 ml 200 ml IV Total 1000 ml # Voids 1 # Bowel Movements 1 Result Diagram: 11/15/16 0746 11/15/16 0746 Imaging Last Impressions Chest X-Ray 11/14/16 1108 Signed Impressions: Service Date/Time: Monday, November 14, 2016 11:29 - CONCLUSION: No acute disease. Hood Schaefer MD Abdomen/Pelvis CT 11/14/16 0000 Signed Impressions: Service Date/Time: Monday, November 14, 2016 13:22 - CONCLUSION: 1. Increase in size of heterogeneously enhancing left adrenal mass. Left adrenal carcinoma can have this appearance or other entities such as pheochromocytoma. 2. Atherosclerosis. Hood Schaefer MD Objective Remarks GENERAL: This is a well-nourished, well-developed male patient, lying in bed in no apparent distress. SKIN: No rashes. Warm and dry. Left calf with healing abrasion, EBONIE, no drainage , scab noted. HEENT: Atraumatic. Normocephalic. Pupils equal round and reactive. Extraocular motions intact. No scleral icterus. No injection or drainage. Nose without bleeding. Throat without erythema, tonsillar hypertrophy or exudate. Uvula midline. Airway patent. NECK: Trachea midline. No JVD. Supple. CARDIOVASCULAR: Regular rate and rhythm without murmurs, gallops, or rubs. No reproducible pain in left chest area. RESPIRATORY: Clear to auscultation. Breath sounds equal bilaterally. No wheezes , rales, or rhonchi. GASTROINTESTINAL: Abdomen soft, nondistended. No guarding. Slight pain to palpation in upper left quadrant. MUSCULOSKELETAL: Extremities without clubbing, cyanosis, or edema. No joint tenderness, effusion, or edema noted. NEUROLOGICAL: Awake and alert. Cranial nerves II through XII intact. Motor and sensory grossly within normal limits. Five out of 5 muscle strength in all muscle groups. Normal speech. A/P Problem List: (1) Anemia ICD Code: D64.9 - Anemia, unspecified Status: Acute (2) Abdominal pain ICD Code: R10.9 - Unspecified abdominal pain Status: Acute (3) Adrenal mass, left ICD Code: E27.9 - Disorder of adrenal gland, unspecified Status: Acute Assessment and Plan Mr. Ferrer is a 56-year-old male patient with a known medical history of hypertension and tobacco use who presented to the ED with complaints of left upper quadrant abdominal pain. Patient states he awoke this morning with excruciating left abdominal pain that radiated up to his left chest area. Left upper quadrant abdominal pain suspect secondary to left adrenal mass Anemia with elevated RDW, iron deficiency anemia Thrombocytosis, acute Elevated CPK and CK-MB - Abdomen/pelvis CT reviewed showing increase in size of heterogeneously enhancing left adrenal mass. Awaiting CT chest ordered by oncology today, may need to biopsy the left adrenal lesion pending findings from CT of the chest. Follow. - CXR reviewed showing no acute disease. - EKG reviewed showing NSR, no arrhythmias noted, no ST segment changes. - Hemoglobin 8.8/Hematocrit 27.8 on presentation. Platelets 726. CPK 384, CKMB 4.9. - Status post 1 L NS bolus given in ED. - Occult stool negative. - BMP, CBC reviewed today, continued anemia with elevated RDW. LDH WNL and ferritin level low. CPK trending down. Will recheck labs in am. Follow. - Hematology, Dr. Duong, following patient. Await recommendations for anemia work up. Hypertension: Controlled today. Continue to monitor BPs. Tobacco abuse Cocaine abuse - Counselled on cessation. DVT prophylaxis: SCDs Attending Statement Patient seen and examined. Agree with above. Awaiting chest CT. Appreciate heme/ onc recommendations. Patient still having tenderness in the LUQ without rebound/ guarding. May need biopsy of adrenal mass. Problem Qualifiers (1) Anemia: Qualified Codes: D64.9 - Anemia, unspecified (2) Abdominal pain: Qualified Codes: R10.12 - Left upper quadrant pain Edith Mathews Nov 15, 2016 12:40 Andrew Forman MD Nov 15, 2016 13:37
[2016-11-15 15:13] VITALS: BP 137/78; PULSE 90; RESP 16; TEMP 97.9; O2SAT 100
--- NOTE | 2016-11-15 15:26 | RADRPT ---
EXAM DATE/TIME: 11/15/2016 13:57 [facility] COMPARISON: CT ABDOMEN & PELVIS W CONTRAST, March 05, 2016, 21:25. INDICATIONS : Left adrenal mass. Evaluate for metastatic disease. IV CONTRAST: 70 cc Omnipaque 350 (iohexol) IV RADIATION DOSE: 3.44 CTDIvol (mGy) MEDICAL HISTORY : Cardiovascular disease. Hypertension. SURGICAL HISTORY : None. ENCOUNTER: Initial ACUITY: 1 day PAIN SCALE: 0/10 LOCATION: Chest TECHNIQUE: Volumetric scanning of the chest was performed. Using automated exposure control and adjustment of t he mA and/or kV according to patient size, radiation dose was kept as low as reasonably achievable to obtain optimal diagnostic quality images. DICOM format image data is available electronically for review and comparison. Follow-up recommendations for detected pulmonary nodules are based at a minimum on nodule size and pa tient risk factors according to Fleischner Society Guidelines. FINDINGS: There are no suspicious lung lesions identified. There is no axillary or mediastinal adenopathy. Re view of bone windows reveals generalized osteopenia. Large adrenal mass is again noted. CONCLUSION: There are no suspicious lung lesions. Norman Mchugh MD FACR on November 15, 2016 at 14:15 Board Certified Radiologist. This report was verified electronically.
--- NOTE | 2016-11-15 15:43 | PD.ONC.PN ---
Subjective Subjective Remarks Afebrile Pt upset that he does not have more information about his diagnosis Wants to leave "If I'm not working I can't pay the bills" Objective Data Date Time Temp Pulse Resp B/P (MAP) Pulse Ox O2 Delivery O2 Flow Rate FiO2 11/15/16 15:13 97.9 90 16 137/78 (97) 100 11/15/16 11:29 98.0 85 16 136/82 (100) 98 11/15/16 07:53 97.9 70 16 133/74 (93) 98 11/15/16 04:36 98.0 79 18 140/80 (100) 100 11/15/16 00:42 97.9 85 19 149/85 (106) 99 11/15/16 00:01 18 11/14/16 20:38 97.3 88 18 165/92 (116) 99 11/14/16 16:57 98.0 87 16 142/76 (98) 99 11/15/16 11/15/16 11/15/16 06:59 14:59 22:59 Intake Total 200 ml Balance 200 ml Result Diagram: 11/15/16 0746 11/15/1646 Laboratory Results Laboratory Tests Test 11/15/16 07:46 White Blood Count 8.5 TH/MM3 Red Blood Count 3.51 MIL/MM3 Hemoglobin 9.2 GM/DL Hematocrit 29.4 % Mean Corpuscular Volume 83.5 FL Mean Corpuscular Hemoglobin 26.2 PG Mean Corpuscular Hemoglobin Concent 31.3 % Red Cell Distribution Width 17.3 % Platelet Count 718 TH/MM3 Mean Platelet Volume 7.3 FL Neutrophils (%) (Auto) 70.6 % Lymphocytes (%) (Auto) 16.8 % Monocytes (%) (Auto) 9.5 % Eosinophils (%) (Auto) 2.1 % Basophils (%) (Auto) 1.0 % Neutrophils # (Auto) 6.0 TH/MM3 Lymphocytes # (Auto) 1.4 TH/MM3 Monocytes # (Auto) 0.8 TH/MM3 Eosinophils # (Auto) 0.2 TH/MM3 Basophils # (Auto) 0.1 TH/MM3 CBC Comment DIFF FINAL Differential Comment Blood Urea Nitrogen 12 MG/DL Creatinine 1.10 MG/DL Random Glucose 122 MG/DL Calcium Level 9.3 MG/DL Sodium Level 136 MEQ/L Potassium Level 3.9 MEQ/L Chloride Level 103 MEQ/L Carbon Dioxide Level 26.0 MEQ/L Anion Gap 7 MEQ/L Estimat Glomerular Filtration Rate 84 ML/MIN Total Creatine Kinase 273 U/L Carcinoembryonic Antigen 0.9 NG/ML CA 19-9 Antigen 12.2 U/ML Administered Medications Medications (Trade) Dose Ordered Sig/Yordan Route PRN Reason Start Time Stop Time Status Last Admin Dose Admin Ondansetron HCl (Zofran Inj) 4 mg Q6H PRN IVP NAUSEA OR VOMITING 11/14/16 15:00 11/14/16 21:02 Acetaminophen/ Hydrocodone Bitart ([place] 7.5-325 Mg) 1 tab Q4H PRN PO PAIN SCALE 6 TO 10 11/14/16 15:00 11/14/16 21:02 Sennosides (Senokot) 17.2 mg Q12H PRN PO MODERATE - SEVERE CONSTIPATION 11/14/16 15:00 11/14/16 21:02 Objective Remarks GENERAL: Anxious, thin middle aged male resting in bed in no acute distress. SKIN: Warm and dry. HEAD: Normocephalic. EYES: No injection or drainage. NECK: Supple, trachea midline. No JVD or lymphadenopathy. CARDIOVASCULAR: Regular rate and rhythm without murmurs. RESPIRATORY: Clear anteriorly. Breathing unlabored. GASTROINTESTINAL: Abdomen soft, non-tender, nondistended. EXTREMITIES: No cyanosis, or edema. NEUROLOGICAL: No obvious focal deficit. Awake, alert, and oriented x3. Assessment/Plan Problem List: (1) Adrenal mass, left ICD Codes: E27.9 - Disorder of adrenal gland, unspecified Status: Acute Plan: -- Will attempt to get biopsy for diagnosis -- CT chest shows no obvious mass; awaiting official report per radiologist. Assessment 56 y/o male admitted with nausea and abdominal pain found to have a L adrenal lesion. Plan 1. Await results of CT chest; there does not appear to be an obvious mass 2. Will request CT guided biopsy if the radiologist feels it is amenable. 3. Monitor CBC; await results of stool for occult blood. 3. Will request followup in clinic with new patient referrals. Attending Statement The exam, history, and the medical decision-making described in the above note were completed with the assistance of the mid-level provider. I reviewed and agree with the findings presented. I attest that I had a [id number] encounter with the patient on the same day, and personally performed and documented my assessment and findings in the medical record. Abdominal pain improved. Workup showed iron deficiency anemia. Consult GI. Await CT chest, if no lesion in the lung will consult radiology to biopsy the left adrenal mass. Hattie James Nov 15, 2016 15:43 Rohit Duong MD Nov 15, 2016 16:16
[2016-11-15] MEDS: ACETAMINOPHEN/HYDROcodone 325 MG/7.5 MG TAB PO PRN ×2 (18:03→22:57)
[2016-11-15 20:18] VITALS: BP 160/89; PULSE 86; RESP 18; TEMP 98.1; O2SAT 100
[2016-11-16] VITALS (8 sets, daily range): BP systolic 126–168; BP diastolic 81–96; PULSE 64–87; RESP 18; TEMP 97.4–98.7; O2SAT 98–99
[2016-11-16 07:38] LABS: AUTOMATED NEUTROPHIL # 6.1 TH/MM3 (1.8-7.7); BASOPHIL # 0.2 TH/MM3 (0-0.2); BASOPHIL % 1.7 % (0.0-2.0); EOSINOPHIL # 0.3 TH/MM3 (0-0.4); EOSINOPHIL % 3.2 % (0.0-4.0); HEMATOCRIT 30.1 % (39.0-51.0); HEMO FLAGS DIFF FINAL; LYMPH % 17.2 % (9.0-44.0); LYMPHOCYTE # 1.5 TH/MM3 (1.0-4.8); MEAN CELL VOLUME 82.7 FL (80.0-100.0); MEAN CORPUSCULAR HGB CONC 31.5 % (32.0-36.0); MONO % 8.3 % (0.0-8.0); NEUT % 69.6 % (16.0-70.0); PLATELET COUNT 728 TH/MM3 (150-450); RED BLOOD COUNT 3.64 MIL/MM3 (4.50-5.90); RED CELL DISTRIBUTION WIDTH 17.4 % (11.6-17.2); WHITE BLOOD COUNT 8.8 TH/MM3 (4.0-11.0)
[2016-11-16] MEDS: SODIUM CHLORIDE 0.9% FLUSH 10 ML FLUSH IV FLUSH SCH ×2 (09:00→21:00)
--- NOTE | 2016-11-16 13:37 | PD.ONC.PN ---
Subjective Subjective Remarks Pt somewhat more calm today Upset he is not getting the biopsy today but he understands why he has to stay Objective Data Date Time Temp Pulse Resp B/P (MAP) Pulse Ox O2 Delivery O2 Flow Rate FiO2 11/16/16 11:50 98.2 64 18 163/84 (110) 98 11/16/16 08:00 98.7 75 18 156/88 (110) 99 11/16/16 04:51 97.4 84 18 126/85 (99) 99 11/16/16 00:27 98.2 83 18 141/87 (105) 98 11/15/16 20:18 98.1 86 18 160/89 (112) 100 11/15/16 19:03 20 11/15/16 15:13 97.9 90 16 137/78 (97) 100 Result Diagram: 11/16/16 0655 11/16/16 0655 Laboratory Results Laboratory Tests Test 11/16/16 06:55 White Blood Count 8.8 TH/MM3 Red Blood Count 3.64 MIL/MM3 Hemoglobin 9.5 GM/DL Hematocrit 30.1 % Mean Corpuscular Volume 82.7 FL Mean Corpuscular Hemoglobin 26.0 PG Mean Corpuscular Hemoglobin Concent 31.5 % Red Cell Distribution Width 17.4 % Platelet Count 728 TH/MM3 Mean Platelet Volume 7.2 FL Neutrophils (%) (Auto) 69.6 % Lymphocytes (%) (Auto) 17.2 % Monocytes (%) (Auto) 8.3 % Eosinophils (%) (Auto) 3.2 % Basophils (%) (Auto) 1.7 % Neutrophils # (Auto) 6.1 TH/MM3 Lymphocytes # (Auto) 1.5 TH/MM3 Monocytes # (Auto) 0.7 TH/MM3 Eosinophils # (Auto) 0.3 TH/MM3 Basophils # (Auto) 0.2 TH/MM3 CBC Comment DIFF FINAL Differential Comment Blood Urea Nitrogen 12 MG/DL Creatinine 1.09 MG/DL Random Glucose 124 MG/DL Calcium Level 9.2 MG/DL Sodium Level 134 MEQ/L Potassium Level 4.0 MEQ/L Chloride Level 100 MEQ/L Carbon Dioxide Level 27.0 MEQ/L Anion Gap 7 MEQ/L Estimat Glomerular Filtration Rate 85 ML/MIN Administered Medications Medications (Trade) Dose Ordered Sig/Yordan Route PRN Reason Start Time Stop Time Status Last Admin Dose Admin Sodium Chloride (NS Flush) 2 ml BID IV FLUSH 11/14/16 21:00 11/15/16 21:00 Ondansetron HCl (Zofran Inj) 4 mg Q6H PRN IVP NAUSEA OR VOMITING 11/14/16 15:00 11/14/16 21:02 Acetaminophen/ Hydrocodone Bitart ([place] 7.5-325 Mg) 1 tab Q4H PRN PO PAIN SCALE 6 TO 10 11/14/16 15:00 11/15/16 22:57 Sennosides (Senokot) 17.2 mg Q12H PRN PO MODERATE - SEVERE CONSTIPATION 11/14/16 15:00 11/14/16 21:02 Objective Remarks GENERAL: Anxious, thin middle aged male resting in bed in no acute distress. SKIN: Warm and dry. HEAD: Normocephalic. EYES: No injection or drainage. NECK: Supple, trachea midline. No JVD or lymphadenopathy. CARDIOVASCULAR: Regular rate and rhythm without murmurs. RESPIRATORY: Clear anteriorly. Breathing unlabored. GASTROINTESTINAL: Abdomen soft, non-tender, nondistended. EXTREMITIES: No cyanosis, or edema. NEUROLOGICAL: No obvious focal deficit. Awake, alert, and oriented x3. Assessment/Plan Problem List: (1) Adrenal mass, left ICD Codes: E27.9 - Disorder of adrenal gland, unspecified Status: Acute Plan: -- Will attempt to get biopsy for diagnosis -- Will rule out pheochromocytoma with MRI prior to biopsy -- CT chest shows no obvious mass Assessment 56 y/o male admitted with nausea and abdominal pain found to have a L adrenal lesion. Plan 1. MRI of abdomen with and without today. 2. Discussed with Dr. Pate; will rule out pheochromocytoma prior to biopsy 3. Await recommendations from GI for iron deficiency anemia Attending Statement The exam, history, and the medical decision-making described in the above note were completed with the assistance of the mid-level provider. I reviewed and agree with the findings presented. I attest that I had a [id number] encounter with the patient on the same day, and personally performed and documented my assessment and findings in the medical record. Frustrated that he can not go home. Abdominal pain improved. Await MRI to evaluate for pheochromocytoma, he has no symptoms to suggest secretory pheochromocytoma. Biopsy of adrenal mass pending MRI findings. Await GI evaluation for iron deficiency anemia. Hattie James Nov 16, 2016 13:37 Rohit Duong MD Nov 16, 2016 14:20
[2016-11-16] MEDS ORDERED: GADODIAMIDE PF 287 MG/ML 5 ML VIAL (for RAD MRI) IVCONTRAST ONE (13:52)
[2016-11-16] MEDS: ACETAMINOPHEN/HYDROcodone 325 MG/7.5 MG TAB PO PRN (14:51)
--- NOTE | 2016-11-16 15:24 | PD.CONS ---
HPI History of Present Illness This is a 56 year old male with HTN who presented with abd pain and cramping. It started a couple weeks ago and he came to ER and then left AMA to go back to work. Now is he back with worsenings of cramps since Sunday. The cramping is in the LUQ. He cites transient nausea but none now. No diarrhea. No blood in stool, dark tarry stool. He has been more constipated and has had to strain more. He has been having "sweats" at work. He has lost 20 lbs in the last few months. Never had EGD or colonoscopy. CT shows left adrenal mass. (Laney Boucher) PFSH Past Medical History Borderline hypertension, not on medication. 1ppd Cocaine and marijuana use. Past Surgical History Right knee surgery as a child. (Laney Boucher) Coded Allergies: No Known Allergies (Verified , 10/20/16) Family History Paternal medical history significant for colon cancer. Maternal medical history significant for lung cancer and hypertension. Social History Does admit to smoking 1 ppd cigarettes. Does admit to drinking 6 pack per day of beer. Does admit to recreational cocaine and marijuana use, last use 4 days ago. (Laney Boucher) Review of Systems Constitutional: DENIES: Fever Eyes: DENIES: Blurred vision Ears, nose, mouth, throat: DENIES: Hearing loss Respiratory: DENIES: Cough Cardiovascular: DENIES: Chest pain Gastrointestinal: COMPLAINS OF: Abdominal pain, Constipation, DENIES: Black stools, Bloody stools, Diarrhea, Nausea, Vomiting, Hematemesis Genitourinary: DENIES: Hematuria Musculoskeletal: DENIES: Joint Swelling Integumentary: DENIES: Jaundice Neurologic: DENIES: Abnormal gait Psychiatric: DENIES: Confusion (Laney Boucher) GI Exam Vitals I&O Vital Signs Date Time Temp Pulse Resp B/P (MAP) Pulse Ox O2 Delivery O2 Flow Rate FiO2 11/16/16 11:50 98.2 64 18 163/84 (110) 98 11/16/16 08:00 98.7 75 18 156/88 (110) 99 11/16/16 04:51 97.4 84 18 126/85 (99) 99 11/16/16 00:27 98.2 83 18 141/87 (105) 98 11/15/16 20:18 98.1 86 18 160/89 (112) 100 11/15/16 19:03 20 I/O 11/15/16 11/15/16 11/15/16 11/16/16 11/16/16 11/16/16 07:00 15:00 23:00 07:00 15:00 23:00 Intake Total 200 ml 800 ml Balance 200 ml 800 ml Intake Oral 200 ml 800 ml # Voids 6 2 # Bowel Movements 1 0 Laboratory Test 11/16/16 06:55 White Blood Count 8.8 TH/MM3 Red Blood Count 3.64 MIL/MM3 Hemoglobin 9.5 GM/DL Hematocrit 30.1 % Mean Corpuscular Volume 82.7 FL Mean Corpuscular Hemoglobin 26.0 PG Mean Corpuscular Hemoglobin Concent 31.5 % Red Cell Distribution Width 17.4 % Platelet Count 728 TH/MM3 Mean Platelet Volume 7.2 FL Neutrophils (%) (Auto) 69.6 % Lymphocytes (%) (Auto) 17.2 % Monocytes (%) (Auto) 8.3 % Eosinophils (%) (Auto) 3.2 % Basophils (%) (Auto) 1.7 % Neutrophils # (Auto) 6.1 TH/MM3 Lymphocytes # (Auto) 1.5 TH/MM3 Monocytes # (Auto) 0.7 TH/MM3 Eosinophils # (Auto) 0.3 TH/MM3 Basophils # (Auto) 0.2 TH/MM3 CBC Comment DIFF FINAL Differential Comment Blood Urea Nitrogen 12 MG/DL Creatinine 1.09 MG/DL Random Glucose 124 MG/DL Calcium Level 9.2 MG/DL Sodium Level 134 MEQ/L Potassium Level 4.0 MEQ/L Chloride Level 100 MEQ/L Carbon Dioxide Level 27.0 MEQ/L Anion Gap 7 MEQ/L Estimat Glomerular Filtration Rate 85 ML/MIN Physical Examination HEENT: PERRL; normocephalic; atraumatic; no jaundice. CHEST: CTA CARDIAC: RRR ABDOMEN: Soft, nondistended, LUQ TTP; no hepatosplenomegaly; bowel sounds are present in all four quadrants. EXTREMITIES: No clubbing, cyanosis, or edema. SKIN: Normal; no rash; no jaundice. RADIOLOGICAL EQUIPMENT SPECIALIST: No focal deficits; alert and oriented times three. (Laney Boucher) Assessment and Plan Plan ASSESSMENT - LUQ pain - crampy pain. unclear etiology onset [address] shows left adrenal mass. hem/onc following, questionable pheochromocytoma MRI pending. - change in bowel habits - has been more constipated of late, having to strain more - weight loss - 20 lbs in last few months. - anemia - hgb 8.8on admission, no obvious bleeding heme neg - thrombocytosis - PLT 726 PLAN - await MRI - EGD/colonoscopy tomorrow - clears - NPO after midnight - Mg citrate - supportive care - monitor labs - further recs to follow this pt seen by myself and Dr Head and this note is written on his behalf (Laney Boucher) Physician Comments Patient was seen and examined Agree with above Continue with current supportive care Monitor labs Plan for an EGD and a colonoscopy tomorrow (Yoan Head MD) Laney Boucher Nov 16, 2016 15:24 Yoan Head MD Nov 16, 2016 17:28
[2016-11-16] MEDS ORDERED: MAGNESIUM CITRATE SOLN 300 ML BTL PO ONE ×2 (16:15→18:15)
--- NOTE | 2016-11-16 16:31 | RADRPT ---
EXAM DATE/TIME: 11/16/2016 15:34 [facility] COMPARISON: CT ABDOMEN & PELVIS W CONTRAST, March 05, 2016, 21:25. CT ABDOMEN & PELVIS W CONTRAST, October [id number], 13:22. INDICATIONS : Adrenal mass. Possible pheocromocytoma. CONTRAST: 15 cc Omniscan (gadodiamide) IV MEDICAL HISTORY : None. SURGICAL HISTORY : Right knee surgery. ENCOUNTER: Subsequent ACUITY: 2 day PAIN SCORE: 0/10 LOCATION: abdomen. TECHNIQUE: Multiplanar, multisequence magnetic resonance imaging of the abdomen was performed without and with i ntravenous contrast. FINDINGS: LIVER: Normal size with normal signal intensity. No lesion is identified. Portal vein is within normal limi ts. BILIARY: There is no intra- or extra-hepatic biliary ductal dilatation. Gallbladder contains no stones. SPLEEN: Within normal limits. PANCREAS: Within normal limits. ADRENALS: Large heterogeneous left adrenal mass is again identified with heterogeneous enhancement and central necrosis. It measures 5.2 x 4.8 cm. KIDNEYS: Normal size and signal intensity. There is no hydronephrosis or mass. OTHER: Aorta is nonaneurysmal. There is no lymphadenopathy. CONCLUSION: Large heterogeneously enhancing left adrenal mass again seen unchanged from recent CT. 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 Pheochromocytoma would be less likely with this appearance. Willie Lewis MD on November 16, 2016 at 16:19 Board Certified Radiologist. This report was verified electronically.
[2016-11-16] MEDS: ACETAMINOPHEN/HYDROcodone 325 MG/5 MG TAB PO PRN (21:55)
[2016-11-17] VITALS (12 sets, daily range): BP systolic 131–171; BP diastolic 75–92; PULSE 53–97; RESP 18–20; TEMP 96.5–98.3; O2SAT 92–99
[2016-11-17] MEDS: SODIUM CHLORIDE 0.9% FLUSH 10 ML FLUSH IV FLUSH SCH ×2 (08:25→20:38)
--- NOTE | 2016-11-17 09:04 | HHI.PR ---
Subjective Remarks late entry - patient seen on 11/16 denies cp/sob Objective Vitals Vital Signs Date Time Temp Pulse Resp B/P (MAP) Pulse Ox O2 Delivery O2 Flow Rate FiO2 11/17/16 07:50 97.7 79 18 135/80 (98) 98 11/17/16 04:29 97.7 79 18 135/80 (98) 99 11/17/16 03:58 73 11/17/16 03:30 53 11/17/16 00:17 97.9 85 18 166/84 (111) 99 11/17/16 00:05 54 11/16/16 23:55 81 11/16/16 21:36 98.1 87 18 168/96 (120) 98 11/16/16 21:35 68 11/16/16 16:00 97.7 80 18 142/81 (101) 99 11/16/16 15:51 20 11/16/16 11:50 98.2 64 18 163/84 (110) 98 I/O 11/16/16 11/16/16 11/16/16 11/17/16 11/17/16 11/17/16 07:00 15:00 23:00 07:00 15:00 23:00 # Voids 2 1 3 Result Diagram: 11/16/16 0655 11/16/16 0655 Objective Remarks GENERAL: This is a well-nourished, well-developed male patient, lying in bed in no apparent distress. SKIN: No rashes. Warm and dry. Left calf with healing abrasion, [employer], no drainage , scab noted. HEENT: Atraumatic. Normocephalic. Pupils equal round and reactive. Extraocular motions intact. No scleral icterus. No injection or drainage. Nose without bleeding. Throat without erythema, tonsillar hypertrophy or exudate. Uvula midline. Airway patent. NECK: Trachea midline. No JVD. Supple. CARDIOVASCULAR: Regular rate and rhythm without murmurs, gallops, or rubs. No reproducible pain in left chest area. RESPIRATORY: Clear to auscultation. Breath sounds equal bilaterally. No wheezes , rales, or rhonchi. GASTROINTESTINAL: Abdomen soft, nondistended. No guarding. Slight pain to palpation in upper left quadrant. MUSCULOSKELETAL: Extremities without clubbing, cyanosis, or edema. No joint tenderness, effusion, or edema noted. NEUROLOGICAL: Awake and alert. Cranial nerves II through XII intact. Motor and sensory grossly within normal limits. Five out of 5 muscle strength in all muscle groups. Normal speech. A/P Problem List: (1) Anemia ICD Code: D64.9 - Anemia, unspecified Status: Acute (2) Abdominal pain ICD Code: R10.9 - Unspecified abdominal pain Status: Acute (3) Adrenal mass, left ICD Code: E27.9 - Disorder of adrenal gland, unspecified Status: Acute Assessment and Plan Mr. Ferrer is a 56-year-old male patient with a known medical history of hypertension and tobacco use who presented to the ED with complaints of left upper quadrant abdominal pain. Patient states he awoke this morning with excruciating left abdominal pain that radiated up to his left chest area. Left upper quadrant abdominal pain suspect secondary to left adrenal mass Anemia with elevated RDW, iron deficiency anemia Thrombocytosis, acute Elevated CPK and CK-MB - Abdomen/pelvis CT reviewed showing increase in size of heterogeneously enhancing left adrenal mass. - CXR reviewed showing no acute disease. - EKG reviewed showing NSR, no arrhythmias noted, no ST segment changes. - Hemoglobin 8.8/Hematocrit 27.8 on presentation. Platelets 726. CPK 384, CKMB 4.9. - Status post 1 L NS bolus given in ED. - Occult stool negative. - BMP, CBC reviewed today, continued anemia with elevated RDW. LDH WNL and ferritin level low. CPK trending down. Will recheck labs in am. Follow. - 11/16 fu 24 hr urine metanephrines and catecholamines ordered by oncology. 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 Hypertension: Slightly elevated likely due to pain. Continue pain control. Tobacco abuse Cocaine abuse - Counselled on cessation. DVT prophylaxis: SCDs Problem Qualifiers (1) Anemia: Qualified Codes: D64.9 - Anemia, unspecified (2) Abdominal pain: Qualified Codes: R10.12 - Left upper quadrant pain Fede Romero MD Nov 17, 2016 09:04
--- NOTE | 2016-11-17 09:05 | PD.ONC.PN ---
Subjective Subjective Remarks Afebrile overnight. Patient anxious about biopsy today. He wasn't able to eat yesterday until after 5PM and is hoping to eat today. Objective Data Date Time Temp Pulse Resp B/P (MAP) Pulse Ox O2 Delivery O2 Flow Rate FiO2 11/17/16 07:50 97.7 79 18 135/80 (98) 98 11/17/16 04:29 97.7 79 18 135/80 (98) 99 11/17/16 03:58 73 11/17/16 03:30 53 11/17/16 00:17 97.9 85 18 166/84 (111) 99 11/17/16 00:05 54 11/16/16 23:55 81 11/16/16 21:36 98.1 87 18 168/96 (120) 98 11/16/16 21:35 68 11/16/16 16:00 97.7 80 18 142/81 (101) 99 11/16/16 15:51 20 11/16/16 11:50 98.2 64 18 163/84 (110) 98 Result Diagram: 11/16/16 0655 11/16/16 0655 Administered Medications Medications (Trade) Dose Ordered Sig/Yordan Route PRN Reason Start Time Stop Time Status Last Admin Dose Admin Sodium Chloride (NS Flush) 2 ml BID IV FLUSH 11/14/16 21:00 11/16/16 21:00 Ondansetron HCl (Zofran Inj) 4 mg Q6H PRN IVP NAUSEA OR VOMITING 11/14/16 15:00 11/14/16 21:02 Acetaminophen/ Hydrocodone Bitart ([place] 5-325 Mg) 1 tab Q4H PRN PO PAIN SCALE 3 TO 5 11/14/16 15:00 11/16/16 21:55 Acetaminophen/ Hydrocodone Bitart ([place] 7.5-325 Mg) 1 tab Q4H PRN PO PAIN SCALE 6 TO 10 11/14/16 15:00 11/16/16 14:51 Sennosides (Senokot) 17.2 mg Q12H PRN PO MODERATE - SEVERE CONSTIPATION 11/14/16 15:00 11/14/16 21:02 Objective Remarks GENERAL: Middle aged male sitting up in bed in [facility]. SKIN: Warm and dry. HEAD: Normocephalic. EYES: No injection or drainage. NECK: Supple, trachea midline. CARDIOVASCULAR: Regular rate and rhythm RESPIRATORY: Breath sounds equal bilaterally. No accessory muscle use. GASTROINTESTINAL: Abdomen soft, non-tender, nondistended. EXTREMITIES: No cyanosis NEUROLOGICAL: No obvious focal deficit. Awake, alert, and oriented x3. Assessment/Plan Problem List: (1) Adrenal mass, left ICD Codes: E27.9 - Disorder of adrenal gland, unspecified Status: Acute Plan: -- Will attempt to get biopsy for diagnosis -- MRI indicates pheochromocytoma less likely --24 hours urine pending. -- CT chest shows no obvious mass Assessment 56 y/o male admitted with nausea and abdominal pain found to have a L adrenal lesion. Plan 1. consult surgery, no other mets have been found, this adrenal mass will likely need to be removed/explored 2. biopsy in IR today 3. EGD/Colonoscopy today for anemia 4. 24 hour urine. --I discussed with patient and nurse that we will need to collect this. both understand/agree with plan. Attending Statement The exam, history, and the medical decision-making described in the above note were completed with the assistance of the mid-level provider. I reviewed and agree with the findings presented. I attest that I had a [id number] encounter with the patient on the same day, and personally performed and documented my assessment and findings in the medical record. No new symptoms. LUQ pain stable. Discussed with radiology, prefer holding off biopsy of left adrenal lesion until we have the urine test result to r/o secretory pheochromocytoma. Collect 24 hour urine. Consult surgery as the mass likely will need to be resected eventually. Await EGD/Colonoscopy for iron deficiency anemia which are likely to reated to the adrenal mass. Chana Dee Nov 17, 2016 09:05 Rohit Duong MD Nov 17, 2016 15:31
[2016-11-17] MEDS ORDERED: MIDAZOLAM HCL 5 MG/5 ML VIAL ONE (10:12)
[2016-11-17] MEDS ORDERED: LIDOCAINE HCL 1% PF 5 ML AMPULE OTHER ONE (12:00)
[2016-11-17] MEDS ORDERED: PROPOFOL 200 MG/20 ML AMP IV ONE (12:00)
[2016-11-17] MEDS ORDERED: DO NOT ADM ANY ANTICOAGULANT DRUGS PRN (12:53)
--- NOTE | 2016-11-17 13:50 | PD.PROCEDR ---
GI Procedure PROCEDURE PERFORMED Upper endoscopy with biopsy Colonoscopy with biopsy INDICATION FOR PROCEDURE Anemia PROCEDURE: The procedure, risks and benefits were discussed with Mr. Ferrer and informed consent was obtained. Anesthesia sedated him with Diprivan. He was placed in the left lateral decubitus position. EGD: The Pentax videoscope was introduced through the oropharynx and advanced to the second portion of the duodenum under direct visualization. Retroflexion was performed in the stomach biopsy from the antrum. FINDINGS: Moderate gastritis biopsy was done Esophagitis Colonoscopy: The Pentax videoscope was introduced through the rectum and advanced to the ascending colon we couldn't go beyond this area because of the amount of alcohol , . Retroflexion was performed in the rectum. Colonic prep was poor, biopsy from polypoid lesion in the sigmoid I could not see the marginal but because of the stool FINDINGS: Poor prep Possible polypoid lesion ESTIMATED BLOOD LOSS: None SPECIMENS REMOVED: Antrum, sigmoid colon COMPLICATIONS: None IMPRESSION: Esophagitis Gastritis Colon polyp Poor prep PLAN: Await biopsy Continue PPI Colonoscopy tomorrow Jonh Carrillo MD Nov 17, 2016 13:50
[2016-11-17] MEDS ORDERED: PEG (High)/E-LYTE SOLN 4000 ML BTL PO ONE (14:00)
--- NOTE | 2016-11-17 17:37 | PD.CONS ---
cc: Jackson Joseph MD [facility] Service General Surgery Consult Requested By Chana GARCIA Reason for Consult Eval of LEFT adrenal mass Primary Care Physician Unknown History of Present Illness This is a 56-year-old male with no known past medical history. The patient's states he developed severe abdominal pain on Sunday and and an 8 out of 10 in intensity. He reports a stabbing-type pain all over his abdomen. This pain prompted him to come to the emergency department. A CT abdomen and pelvis was obtained which showed an enhancing left adrenal mass with questionable appearance of adrenal carcinoma versus pheochromocytoma. Also a abdominal MRI was obtained which essentially showed the same thing but more favored a adrenal cortical carcinoma rather than a pheochromocytoma. The patient does report he has excess sweating recently. The patient does report that he felt his " heart racing". The patient does not report a headache. The abdominal pain has currently resolved. The patient was scheduled for CT-guided biopsy today but that was canceled. The patient has been evaluated by GI and EGD was obtained today. The patient is scheduled for a colonoscopy tomorrow. A General Surgery consultation has been requested for evaluation of left adrenal mass. Review of Systems Constitutional: DENIES: Fatigue, Chills, Dizziness Endocrine: DENIES: Polydipsia, Polyuria, Polyphagia Eyes: DENIES: Diplopia, Vision loss Ears, nose, mouth, throat: DENIES: Hearing loss Respiratory: DENIES: Cough Cardiovascular: DENIES: Chest pain Gastrointestinal: COMPLAINS OF: Abdominal pain, Nausea, DENIES: Vomiting Genitourinary: DENIES: Urinary incontinence Musculoskeletal: DENIES: Joint pain, Muscle aches Integumentary: DENIES: Abnormal pigmentation Hematologic/lymphatic: DENIES: Bruising Immunologic/allergic: DENIES: Eczema Neurologic: DENIES: Headache, Localized weakness Psychiatric: DENIES: Mood changes, Depression, Hallucinations Past Family Social History Past Medical History None Past Surgical History Knee operation Reported Medications None Allergies: Coded Allergies: No Known Allergies (Verified , 10/20/16) Active Ordered Medications Current Medications Medications (Trade) Dose Ordered Sig/Yordan Route Start Time Stop Time Status Last Admin (NS Flush) 2 ml UNSCH PRN IV FLUSH 11/14/16 15:00 (NS Flush) 2 ml BID IV FLUSH 11/14/16 21:00 11/16/16 21:00 (Tylenol) 650 mg Q4H PRN PO 11/14/16 15:00 (Zofran Inj) 4 mg Q6H PRN IVP 11/14/16 15:00 11/14/16 21:02 (Tylenol) 650 mg Q6H PRN PO 11/14/16 15:00 ([place] 5-325 Mg) 1 tab Q4H PRN PO 11/14/16 15:00 11/16/16 21:55 ([place] 7.5-325 Mg) 1 tab Q4H PRN PO 11/14/16 15:00 11/16/16 14:51 (Narcan Inj) 0.4 mg UNSCH PRN IV PUSH 11/14/16 15:00 (Milk Of Magnesia Liq) 30 ml Q12H PRN PO 11/14/16 15:00 (Senokot) 17.2 mg Q12H PRN PO 11/14/16 15:00 11/14/16 21:02 (Dulcolax Supp) 10 mg DAILY PRN RECTAL 11/14/16 15:00 (Lactulose Liq) 30 ml DAILY PRN PO 11/14/16 15:00 (Catapres) 0.1 mg Q6H PRN PO 11/17/16 09:15 Miscellaneous Information ALL NURSING DEPARTME... UNSCH PRN .XX 11/17/16 12:53 11/18/16 12:52 Family History Mother had lung cancer Father was killed but he did have a history of colon cancer (without treatment) Social History Positive tobacco use--- one pack per day Positive EtOH use--- 6 beers daily Positive illicit drug use--- cocaine and marijuana; used as recently as 4 days prior to admission Physical Exam Vital Signs Vital Signs Date Time Temp Pulse Resp B/P (MAP) Pulse Ox O2 Delivery O2 Flow Rate FiO2 11/17/16 16:50 98.0 75 18 152/88 (109) 98 11/17/16 13:15 69 14 170/86 (114) 97 11/17/16 13:00 97.5 75 10 124/85 (98) 100 11/17/16 11:15 61 20 151/92 (111) 92 11/17/16 11:00 62 18 131/77 (95) 92 11/17/16 10:45 98.3 66 20 135/75 (95) 92 11/17/16 07:50 97.7 79 18 135/80 (98) 98 11/17/16 04:29 97.7 79 18 135/80 (98) 99 11/17/16 03:58 73 11/17/16 03:30 53 11/17/16 00:17 97.9 85 18 166/84 (111) 99 11/17/16 00:05 54 11/16/16 23:55 81 11/16/16 21:36 98.1 87 18 168/96 (120) 98 11/16/16 21:35 68 Physical Exam GENERAL: Pleasant 56 year old male resting in bed in no acute distress. SKIN: Warm and dry. HEAD: Atraumatic. Normocephalic. EYES: Pupils equal and round. No scleral icterus. No injection or drainage. ENT: No nasal bleeding or discharge. Mucous membranes pink and moist. NECK: Trachea midline. CARDIOVASCULAR: Regular rate and rhythm. RESPIRATORY: No accessory muscle use. Clear to auscultation. Breath sounds equal bilaterally. GASTROINTESTINAL: Abdomen soft, non-tender, nondistended. No visible scars on abdomen. MUSCULOSKELETAL: Extremities without clubbing, cyanosis, or edema. No obvious deformities. NEUROLOGICAL: Awake and alert. No obvious cranial nerve deficits. Motor grossly within normal limits. Five out of 5 muscle strength in the arms and legs. Normal speech. PSYCHIATRIC: Appropriate mood and affect; insight and judgment normal. Result Diagram: 11/16/16 0655 11/16/16 0655 Imaging Last 48 hours Impressions Abdomen MRI 11/16/16 0000 Signed Impressions: Service Date/Time: October 15:34 - CONCLUSION: Large heterogeneously enhancing left adrenal mass again seen unchanged from recent CT. 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 Pheochromocytoma would be less likely with this appearance. Willie Lewis MD Assessment and Plan Assessment and Plan 56 year old male with abdominal pain; imaging + for adrenal mass -GI planing colonoscopy tomorrow -Clear liquids; NPO after MN -Bowel prep tonight -Plan for metanephrines/catecholamines 24 hr urine study to start tomorrow AM -Will follow results of colonoscopy and urine study -Further plans after all laboratory and procedures results -Thank you for this consult; We will follow along with you Discussed Condition With Dr. Joseph Mr. Ferrer Attending Statement The exam, history, and the medical decision-making described in the above note were completed with the assistance of the mid-level provider. I reviewed and agree with the findings presented. I attest that I had a [id number] encounter with the patient on the same day, and personally performed and documented my assessment and findings in the medical record. Abdominal exam: soft, non-tender on exam Left adrenal mass, no acute surgical intervention indicated recommend workup to R/O pheochromocytoma, if not functional would recommend resection to r/o malignancy Nicky Monroe Nov 17, 2016 17:37 Jackson Joseph MD Nov 22, 2016 00:02
--- NOTE | 2016-11-17 19:48 | HHI.PR ---
Subjective Remarks Patient denies abdominal pain, nausea or ovmiting denies cp/sob sp EGD BP elevated Objective Vitals Vital Signs Date Time Temp Pulse Resp B/P (MAP) Pulse Ox O2 Delivery O2 Flow Rate FiO2 11/17/16 16:50 98.0 75 18 152/88 (109) 98 11/17/16 13:15 69 14 170/86 (114) 97 11/17/16 13:00 97.5 75 10 124/85 (98) 100 11/17/16 11:15 61 20 151/92 (111) 92 11/17/16 11:00 62 18 131/77 (95) 92 11/17/16 10:45 98.3 66 20 135/75 (95) 92 11/17/16 07:50 97.7 79 18 135/80 (98) 98 11/17/16 04:29 97.7 79 18 135/80 (98) 99 11/17/16 03:58 73 11/17/16 03:30 53 11/17/16 00:17 97.9 85 18 166/84 (111) 99 11/17/16 00:05 54 11/16/16 23:55 81 11/16/16 21:36 98.1 87 18 168/96 (120) 98 11/16/16 21:35 68 I/O 11/16/16 11/16/16 11/16/16 11/17/16 11/17/16 11/17/16 07:00 15:00 23:00 07:00 15:00 23:00 Intake Total 400 ml Balance 400 ml Other 400 ml # Voids 2 1 3 Result Diagram: 11/16/16 0655 11/16/16 0655 Imaging Last Impressions Abdomen MRI 11/16/16 0000 Signed Impressions: Service Date/Time: October 15:34 - CONCLUSION: Large heterogeneously enhancing left adrenal mass again seen unchanged from recent CT. 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 Pheochromocytoma would be less likely with this appearance. Willie Lewis MD Chest CT 11/15/16 0000 Signed Impressions: Service Date/Time: Tuesday, November 15, 2016 13:57 - CONCLUSION: There are no suspicious lung lesions. Norman Mchugh MD FACR Chest X-Ray 11/14/16 1108 Signed Impressions: Service Date/Time: Monday, November 14, 2016 11:29 - CONCLUSION: No acute disease. Hood Schaefer MD Abdomen/Pelvis CT 11/14/16 0000 Signed Impressions: Service Date/Time: Monday, November 14, 2016 13:22 - CONCLUSION: 1. Increase in size of heterogeneously enhancing left adrenal mass. Left adrenal carcinoma can have this appearance or other entities such as pheochromocytoma. 2. Atherosclerosis. Hood Schaefer MD Objective Remarks Patient sitting in the side of the bed, thin, nad Lungs clear BL Abdomen is soft, NT, ND no edema in lower extremities Medications and IVs Current Medications Medications (Trade) Dose Ordered Sig/Yordan Route Start Time Stop Time Status Last Admin (NS Flush) 2 ml UNSCH PRN IV FLUSH 11/14/16 15:00 (NS Flush) 2 ml BID IV FLUSH 11/14/16 21:00 11/16/16 21:00 (Tylenol) 650 mg Q4H PRN PO 11/14/16 15:00 (Zofran Inj) 4 mg Q6H PRN IVP 11/14/16 15:00 11/14/16 21:02 (Tylenol) 650 mg Q6H PRN PO 11/14/16 15:00 ([place] 5-325 Mg) 1 tab Q4H PRN PO 11/14/16 15:00 11/16/16 21:55 ([place] 7.5-325 Mg) 1 tab Q4H PRN PO 11/14/16 15:00 11/16/16 14:51 (Narcan Inj) 0.4 mg UNSCH PRN IV PUSH 11/14/16 15:00 (Milk Of Magnesia Liq) 30 ml Q12H PRN PO 11/14/16 15:00 (Senokot) 17.2 mg Q12H PRN PO 11/14/16 15:00 11/14/16 21:02 (Dulcolax Supp) 10 mg DAILY PRN RECTAL 11/14/16 15:00 (Lactulose Liq) 30 ml DAILY PRN PO 11/14/16 15:00 (Catapres) 0.1 mg Q6H PRN PO 11/17/16 09:15 Miscellaneous Information ALL NURSING DEPARTME... UNSCH PRN .XX 11/17/16 12:53 11/18/16 12:52 Urinary Catheter: No Vascular Central Line Catheter: No A/P Problem List: (1) Anemia ICD Code: D64.9 - Anemia, unspecified Status: Acute (2) Abdominal pain ICD Code: R10.9 - Unspecified abdominal pain Status: Acute (3) Adrenal mass, left ICD Code: E27.9 - Disorder of adrenal gland, unspecified Status: Acute Assessment and Plan Mr. Ferrer is a 56-year-old male patient with a known medical history of hypertension and tobacco use who presented to the ED with complaints of left upper quadrant abdominal pain. Patient states he awoke this morning with excruciating left abdominal pain that radiated up to his left chest area. Left upper quadrant abdominal pain suspect secondary to left adrenal mass Anemia with elevated RDW, iron deficiency anemia Thrombocytosis, acute Elevated CPK and CK-MB - Abdomen/pelvis CT reviewed showing increase in size of heterogeneously enhancing left adrenal mass. - CXR reviewed showing no acute disease. - EKG reviewed showing NSR, no arrhythmias noted, no ST segment changes. - Hemoglobin 8.8/Hematocrit 27.8 on presentation. Platelets 726. CPK 384, CKMB 4.9. - Status post 1 L NS bolus given in ED. - Occult stool negative. - BMP, CBC reviewed today, continued anemia with elevated RDW. LDH WNL and ferritin level low. CPK trending down. Will recheck labs in am. Follow. - 11/16 fu 24 hr urine metanephrines and catecholamines ordered by oncology. 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 - 11/17 hemoglobin stable, platelets still elevated lactic secondary to iron deficiency anemia. Follow-up 24 hour urine metanephrines and catecholamines. Follow-up hematology recommendations. Patient status post EGD and colonoscopy were gastritis and polyps reported. However EGD/colonoscopy reports poor prep. Plan repeat colonoscopy in a.m. Gen. surgery consulted and recommendations appreciated. Hypertension: Blood pressure seems to be elevated with systolic blood pressure in the 170s. Continue clonidine as needed. Tobacco abuse Cocaine abuse - Counselled on cessation. DVT prophylaxis: SCDs Problem Qualifiers (1) Anemia: Qualified Codes: D64.9 - Anemia, unspecified (2) Abdominal pain: Qualified Codes: R10.12 - Left upper quadrant pain Fede Romero MD Nov 17, 2016 19:48
[2016-11-17] MEDS: cloNIDine HCL 0.1 MG TAB PO PRN (20:38)
[2016-11-18] VITALS (7 sets, daily range): BP systolic 125–170; BP diastolic 72–90; PULSE 62–89; RESP 14–20; TEMP 96.4–98.5; O2SAT 96–100
--- NOTE | 2016-11-18 08:48 | HHI.PR ---
Subjective Subjective Notes npo for colonoscopy, c/o abd pain Objective Vitals/I&O Vital Signs Date Time Temp Pulse Resp B/P (MAP) Pulse Ox O2 Delivery O2 Flow Rate FiO2 11/18/16 04:00 97.6 89 20 136/72 (93) 97 11/14/16 14:32 Room Air Radiology Last 48 hours Impressions Abdomen MRI 11/16/16 0000 Signed Impressions: Service Date/Time: October 15:34 - CONCLUSION: Large heterogeneously enhancing left adrenal mass again seen unchanged from recent CT. 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 Pheochromocytoma would be less likely with this appearance. Willie Lewis MD Abdomen: Other (soft +ttp no rebound) A/P Assessment and Plan adrenal mass PLAN await colonoscopy await lab results will follow Raymond Mendez MD Nov 18, 2016 08:48
[2016-11-18] MEDS ORDERED: INFLUENZA VIRUS VACCINE (QUADRIVALENT) 0.5 ML SYR IM ONE (10:00)
[2016-11-18] MEDS: SODIUM CHLORIDE 0.9% FLUSH 10 ML FLUSH IV FLUSH SCH ×2 (10:50→21:57)
--- NOTE | 2016-11-18 14:26 | HHI.PR ---
Subjective Remarks Patient c/o of mild abdominal pain but feels hungry denies nausea or vomiting denies cp/sob Objective Vitals Vital Signs Date Time Temp Pulse Resp B/P (MAP) Pulse Ox O2 Delivery O2 Flow Rate FiO2 11/18/16 12:00 98.1 81 16 134/73 (93) 98 11/18/16 08:00 97.9 67 14 125/90 (102) 97 11/18/16 04:00 97.6 89 20 136/72 (93) 97 11/18/16 00:00 98.5 62 18 154/79 (104) 96 11/17/16 20:00 97.6 67 20 171/90 (117) 99 11/17/16 18:30 96.5 97 18 151/80 (103) 99 11/17/16 16:50 98.0 75 18 152/88 (109) 98 I/O 11/17/16 11/17/16 11/17/16 11/18/16 11/18/16 11/18/16 07:00 15:00 23:00 07:00 15:00 23:00 Intake Total 400 ml 720 ml Balance 400 ml 720 ml Intake Oral 720 ml Other 400 ml # Voids 3 4 # Bowel Movements 4 Result Diagram: 11/16/16 0655 11/16/16 0655 Imaging Last Impressions Abdomen MRI 11/16/16 0000 Signed Impressions: Service Date/Time: October 15:34 - CONCLUSION: Large heterogeneously enhancing left adrenal mass again seen unchanged from recent CT. 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 Pheochromocytoma would be less likely with this appearance. Willie Lewis MD Chest CT 11/15/16 0000 Signed Impressions: Service Date/Time: Tuesday, November 15, 2016 13:57 - CONCLUSION: There are no suspicious lung lesions. Norman Mchugh MD FACR Chest X-Ray 11/14/16 1108 Signed Impressions: Service Date/Time: Monday, November 14, 2016 11:29 - CONCLUSION: No acute disease. Hood Schaefer MD Abdomen/Pelvis CT 11/14/16 0000 Signed Impressions: Service Date/Time: Monday, November 14, 2016 13:22 - CONCLUSION: 1. Increase in size of heterogeneously enhancing left adrenal mass. Left adrenal carcinoma can have this appearance or other entities such as pheochromocytoma. 2. Atherosclerosis. Hood Schaefer MD Objective Remarks Patient sitting in the side of the bed, thin, nad Lungs clear BL Abdomen is soft, NT, ND no edema in lower extremities Medications and IVs Current Medications Medications (Trade) Dose Ordered Sig/Yordan Route Start Time Stop Time Status Last Admin (NS Flush) 2 ml UNSCH PRN IV FLUSH 11/14/16 15:00 (NS Flush) 2 ml BID IV FLUSH 11/14/16 21:00 11/18/16 10:50 (Tylenol) 650 mg Q4H PRN PO 11/14/16 15:00 (Zofran Inj) 4 mg Q6H PRN IVP 11/14/16 15:00 11/14/16 21:02 (Tylenol) 650 mg Q6H PRN PO 11/14/16 15:00 ([place] 5-325 Mg) 1 tab Q4H PRN PO 11/14/16 15:00 11/16/16 21:55 ([place] 7.5-325 Mg) 1 tab Q4H PRN PO 11/14/16 15:00 11/16/16 14:51 (Narcan Inj) 0.4 mg UNSCH PRN IV PUSH 11/14/16 15:00 (Milk Of Magnesia Liq) 30 ml Q12H PRN PO 11/14/16 15:00 (Senokot) 17.2 mg Q12H PRN PO 11/14/16 15:00 11/14/16 21:02 (Dulcolax Supp) 10 mg DAILY PRN RECTAL 11/14/16 15:00 (Lactulose Liq) 30 ml DAILY PRN PO 11/14/16 15:00 (Catapres) 0.1 mg Q6H PRN PO 11/17/16 09:15 11/17/16 20:38 A/P Problem List: (1) Anemia ICD Code: D64.9 - Anemia, unspecified Status: Acute (2) Abdominal pain ICD Code: R10.9 - Unspecified abdominal pain Status: Acute (3) Adrenal mass, left ICD Code: E27.9 - Disorder of adrenal gland, unspecified Status: Acute (4) Thrombocytosis ICD Code: D47.3 - Essential (hemorrhagic) thrombocythemia (5) Hyperglycemia ICD Code: R73.9 - Hyperglycemia, unspecified Assessment and Plan Mr. Ferrer is a 56-year-old male patient with a known medical history of hypertension and tobacco use who presented to the ED with complaints of left upper quadrant abdominal pain. Patient states he awoke this morning with excruciating left abdominal pain that radiated up to his left chest area. Left upper quadrant abdominal pain suspect secondary to left adrenal mass Anemia with elevated RDW, iron deficiency anemia Thrombocytosis, acute Elevated CPK and CK-MB - Abdomen/pelvis CT reviewed showing increase in size of heterogeneously enhancing left adrenal mass. - CXR reviewed showing no acute disease. - EKG reviewed showing NSR, no arrhythmias noted, no ST segment changes. - Hemoglobin 8.8/Hematocrit 27.8 on presentation. Platelets 726. CPK 384, CKMB 4.9. - Status post 1 L NS bolus given in ED. - Occult stool negative. - BMP, CBC reviewed today, continued anemia with elevated RDW. LDH WNL and ferritin level low. CPK trending down. Will recheck labs in am. Follow. - 11/16 fu 24 hr urine metanephrines and catecholamines ordered by oncology. 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 - 11/17 hemoglobin stable, platelets still elevated lactic secondary to iron deficiency anemia. Follow-up 24 hour urine metanephrines and catecholamines. Follow-up hematology recommendations. Patient status post EGD and colonoscopy were gastritis and polyps reported. However EGD/colonoscopy reports poor prep. Plan repeat colonoscopy in a.m. Gen. surgery consulted and recommendations appreciated. - 11/18 For repeat colonoscopy today. Hypertension: BP sems to be stable. Required administration of Clonidine on night of 11/17. Tobacco abuse Cocaine abuse - Counselled on cessation. DVT prophylaxis: SCDs Discharge Planning Pending colonoscopy, biopsy of adrenal mass Problem Qualifiers (1) Anemia: Qualified Codes: D50.0 - Iron deficiency anemia secondary to blood loss ( chronic) (2) Abdominal pain: Qualified Codes: R10.12 - Left upper quadrant pain Fede Romero MD Nov 18, 2016 14:26
--- NOTE | 2016-11-18 17:10 | HHI.GIFU ---
Subjective Remarks Patient laying in bed comfortably, he had repeat prep because his last prep was not clear Objective Vitals I&O Vital Signs Date Time Temp Pulse Resp B/P (MAP) Pulse Ox O2 Delivery O2 Flow Rate FiO2 11/18/16 14:26 97.7 66 18 138/84 (102) 98 Manual Cuff/Auscultation 11/18/16 14:26 98 Room Air 11/18/16 14:26 11/18/16 12:00 98.1 81 16 134/73 (93) 98 11/18/16 08:00 97.9 67 14 125/90 (102) 97 11/18/16 04:00 97.6 89 20 136/72 (93) 97 11/18/16 00:00 98.5 62 18 154/79 (104) 96 11/17/16 20:00 97.6 67 20 171/90 (117) 99 11/17/16 18:30 96.5 97 18 151/80 (103) 99 I/O 11/17/16 11/17/16 11/17/16 11/18/16 11/18/16 11/18/16 07:00 15:00 23:00 07:00 15:00 23:00 Intake Total 400 ml 720 ml Balance 400 ml 720 ml Intake Oral 720 ml Other 400 ml # Voids 3 4 # Bowel Movements 4 Physical Exam HEENT: Pupils round and reactive to light; normocephalic; atraumatic; no jaundice. Throat is clear. NECK: Neck is supple, no JVD, no lymphadenopathy. CHEST: Chest is clear to auscultation and percussion. CARDIAC: Regular rate and rhythm with no murmur gallop or rubs. ABDOMEN: Soft, nondistended, mild diffuse abdominal tenderness; no hepatosplenomegaly; bowel sounds are present in all four quadrants. EXTREMITIES: No clubbing, cyanosis, or edema. SKIN: Normal; no rash; no jaundice. 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 Assessment and Plan Plan ASSESSMENT - LUQ pain - crampy pain. unclear etiology onset [address] shows left adrenal mass. hem/onc following, questionable pheochromocytoma MRI pending. - change in bowel habits - has been more constipated of late, having to strain more - weight loss - 20 lbs in last few months. - anemia - hgb 8.8on admission, no obvious bleeding heme neg - thrombocytosis - PLT 726 11/18/2016 patient doing okay still some abdominal discomfort has a an adrenal mass, colonoscopy showed a large 3 cm polyp in the sigmoid removed by snare, 2 polyps in the ascending colon removed by snare some diverticular disease PLAN Diet as tolerated - supportive care - monitor labs - further recs by surgery - Colonoscopy in 1 year Jonh Carrillo MD Nov 18, 2016 17:10
--- NOTE | 2016-11-18 17:14 | PD.PROCEDR ---
GI Procedure PROCEDURE PERFORMED Colonoscopy with snare polypectomy, ablation of colon polyps INDICATION FOR PROCEDURE Anemia PROCEDURE: The procedure, risks and benefits were discussed with Mr. Ferrer and informed consent was obtained. Anesthesia sedated him with Diprivan. He was placed in the left lateral decubitus position. Colonoscopy: The Pentax videoscope was introduced through the rectum and advanced to cecum. Retroflexion was performed in the rectum. Colonic prep was good, FINDINGS: Large 2-3 cm polyp in the sigmoid removed by snare 2 polyps 1 cm H in the ascending colon removed by snare, small polyp in the ascending colon ablated with the ESTIMATED BLOOD LOSS: None SPECIMENS REMOVED: Colon polyps COMPLICATIONS: None IMPRESSION: Colon polyps Diverticulosis PLAN: Follow up biopsy May feed patient Colonoscopy in 1 year Further plan per surgery Jonh Carrillo MD Nov 18, 2016 17:14
[2016-11-18] MEDS: ACETAMINOPHEN/HYDROcodone 325 MG/7.5 MG TAB PO PRN (18:33)
[2016-11-19] VITALS (8 sets, daily range): BP systolic 114–169; BP diastolic 74–100; PULSE 62–97; RESP 16–20; TEMP 96.8–99.7; O2SAT 98–100
[2016-11-19] MEDS: SODIUM CHLORIDE 0.9% FLUSH 10 ML FLUSH IV FLUSH SCH ×2 (09:00→20:42)
[2016-11-19 09:53] LABS: AUTOMATED NEUTROPHIL # 5.7 TH/MM3 (1.8-7.7); BASOPHIL # 0.1 TH/MM3 (0-0.2); BASOPHIL % 1.4 % (0.0-2.0); EOSINOPHIL # 0.3 TH/MM3 (0-0.4); EOSINOPHIL % 3.8 % (0.0-4.0); HEMATOCRIT 32.3 % (39.0-51.0); HEMO FLAGS DIFF FINAL; LYMPH % 19.1 % (9.0-44.0); LYMPHOCYTE # 1.6 TH/MM3 (1.0-4.8); MEAN CELL VOLUME 83.3 FL (80.0-100.0); MEAN CORPUSCULAR HEMOGLOBIN 25.6 PG (27.0-34.0); MEAN CORPUSCULAR HGB CONC 30.7 % (32.0-36.0); MONO % 6.8 % (0.0-8.0); NEUT % 68.9 % (16.0-70.0); PLATELET COUNT 820 TH/MM3 (150-450); RED BLOOD COUNT 3.87 MIL/MM3 (4.50-5.90); RED CELL DISTRIBUTION WIDTH 17.7 % (11.6-17.2); WHITE BLOOD COUNT 8.3 TH/MM3 (4.0-11.0)
[2016-11-19 10:18] LABS: ANION GAP 9 MEQ/L (5-15); AST (GOT) 17 U/L (15-37); BICARBONATE 26.6 MEQ/L (21.0-32.0); BLOOD UREA NITROGEN 14 MG/DL (7-18); CHLORIDE 100 MEQ/L (98-107); GLOMERULAR FILTRATION RATE 75 ML/MIN (>89); MAGNESIUM 2.1 MG/DL (1.5-2.5); POTASSIUM 4.1 MEQ/L (3.5-5.1); SODIUM (NA) 136 MEQ/L (136-145)
[2016-11-19 10:23] LABS: ALKALINE PHOSPHATASE 160 U/L (45-117); ALT (GPT) 24 U/L (12-78); TOTAL BILIRUBIN ADULT 0.3 MG/DL (0.2-1.0)
--- NOTE | 2016-11-19 15:29 | HHI.GIFU ---
Subjective Remarks Resting in chair. No n/v. No abdominal pain. No bleeding. Tolerating diet. (Yohana Osullivan) Objective Vitals I&O Vital Signs Date Time Temp Pulse Resp B/P (MAP) Pulse Ox O2 Delivery O2 Flow Rate FiO2 11/19/16 12:00 97.7 96 16 114/84 (94) 100 11/19/16 10:00 99.7 84 20 133/74 (93) 98 11/19/16 09:00 151/100 (117) 11/19/16 08:00 96.8 62 16 99 11/19/16 05:13 97.3 69 20 169/98 (121) 98 11/19/16 00:00 97.3 67 20 153/97 (115) 98 11/18/16 20:00 96.4 76 20 170/83 (112) 99 11/18/16 19:33 16 11/18/16 17:15 70 17 146/83 (104) 100 Room Air 11/18/16 17:02 97.7 70 13 135/80 (98) 100 Nasal Cannula 2 11/18/16 17:02 70 11/18/16 16:00 97.7 85 14 159/88 (111) 100 I/O 11/18/16 11/18/16 11/18/16 11/19/16 11/19/16 11/19/16 07:00 15:00 23:00 07:00 15:00 23:00 Intake Total 720 ml 984 ml 360 ml Balance 720 ml 984 ml 360 ml Intake Oral 720 ml 684 ml 360 ml IV Total 300 ml # Voids 4 3 4 # Bowel Movements 4 3 Laboratory Laboratory Tests Test 11/19/16 09:08 White Blood Count 8.3 Red Blood Count 3.87 Hemoglobin 9.9 Hematocrit 32.3 Mean Corpuscular Volume 83.3 Mean Corpuscular Hemoglobin 25.6 Mean Corpuscular Hemoglobin Concent 30.7 Red Cell Distribution Width 17.7 Platelet Count 820 Mean Platelet Volume 7.3 Neutrophils (%) (Auto) 68.9 Lymphocytes (%) (Auto) 19.1 Monocytes (%) (Auto) 6.8 Eosinophils (%) (Auto) 3.8 Basophils (%) (Auto) 1.4 Neutrophils # (Auto) 5.7 Lymphocytes # (Auto) 1.6 Monocytes # (Auto) 0.6 Eosinophils # (Auto) 0.3 Basophils # (Auto) 0.1 CBC Comment DIFF FINAL Differential Comment Blood Urea Nitrogen 14 Creatinine 1.22 Random Glucose 129 Total Protein 9.0 Albumin 3.3 Calcium Level 9.9 Phosphorus Level 3.4 Magnesium Level 2.1 Alkaline Phosphatase 160 Aspartate Amino Transf (AST/SGOT) 17 Alanine Aminotransferase (ALT/SGPT) 24 Total Bilirubin 0.3 Sodium Level 136 Potassium Level 4.1 Chloride Level 100 Carbon Dioxide Level 26.6 Anion Gap 9 Estimat Glomerular Filtration Rate 75 Imaging Last Impressions Abdomen MRI 11/16/16 0000 Signed Impressions: Service Date/Time: October 15:34 - CONCLUSION: Large heterogeneously enhancing left adrenal mass again seen unchanged from recent CT. 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 Pheochromocytoma would be less likely with this appearance. Willie Lewis MD Chest CT 11/15/16 0000 Signed Impressions: Service Date/Time: Tuesday, November 15, 2016 13:57 - CONCLUSION: There are no suspicious lung lesions. Norman Mchugh MD FACR Chest X-Ray 11/14/16 1108 Signed Impressions: Service Date/Time: Monday, November 14, 2016 11:29 - CONCLUSION: No acute disease. Hood Schaefer MD Abdomen/Pelvis CT 11/14/16 0000 Signed Impressions: Service Date/Time: Monday, November 14, 2016 13:22 - CONCLUSION: 1. Increase in size of heterogeneously enhancing left adrenal mass. Left adrenal carcinoma can have this appearance or other entities such as pheochromocytoma. 2. Atherosclerosis. Hood Schaefer MD Physical Exam HEENT: Normocephalic; atraumatic; no jaundice CHEST: CTA CARDIAC: RRR ABDOMEN: Soft, nondistended, mild diffuse abdominal tenderness; no hepatosplenomegaly; bowel sounds are present in all four quadrants. EXTREMITIES: No clubbing, cyanosis, or edema. SKIN: Normal; no rash; no jaundice. NUT CULLER: No focal deficits; alert and oriented times three. (Yohana Osullivan) Assessment and Plan Plan ASSESSMENT - Abdominal pain. CT Scan abdomen and pelvis with iv contrast (11/14/16)---> Increase in size of heterogeneously enhancing left adrenal mass. Left adrenal carcinoma can have this appearance or other entities such as pheochromocytoma. Atherosclerosis. S/P EGD/Incomplete colonoscopy (11/17/16)---> esophagitis, gastritis, colon polyp, poor prep. Pathology pending. Rpt. Colonoscopy (11/18/16)---> Colon polyps, Diverticulosis. Pathology pending. Rpt. Colonoscopy 1 year. Clinically doing well, no complaints at this time. Further plans per surgery. - Abnormal imaging on ct with left adrenal mass, ? left adrenal carcinoma vs. pheochromocytoma. MRI Abdomen with and without contrast (11/16/16)---> Large heterogeneously enhancing left adrenal mass again seen unchanged from recent CT. 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 Pheochromocytoma would be less likely with this appearance. GS following. - Change in bowel habits, constipation. S/P EGD/Colonoscopy as above. - Abnormal weight loss - 20 lbs in last few months. Imaging, EGD/Colonoscopy as above. - Anemia. EGD/Colonoscopy as above. 9.9/32.3. - Thrombocytosis - PLT 820. + Tobacco. - PSA per attending. PLAN - Diet as tolerated - Await pathology - PPI - Monitor labs - GS following - Colonoscopy in 1 year - Further recommendations to follow based on results of above - PT seen and examined by Dr. Carrillo and myself and this note is written on his behalf (Yohana Osullivan) Yohana Osullivan Nov 19, 2016 15:29 Jonh Carrillo MD Nov 19, 2016 18:10
--- NOTE | 2016-11-19 19:08 | HHI.PR ---
Subjective Remarks denies abdominal pain, nausea or vomting denies cp/sob perhaps little pain in left upper abdomen which resolved afebrile Objective Vitals Vital Signs Date Time Temp Pulse Resp B/P (MAP) Pulse Ox O2 Delivery O2 Flow Rate FiO2 11/19/16 16:00 97.6 97 16 142/96 (111) 100 11/19/16 12:00 97.7 96 16 114/84 (94) 100 11/19/16 10:00 99.7 84 20 133/74 (93) 98 11/19/16 09:00 151/100 (117) 11/19/16 08:00 96.8 62 16 99 11/19/16 05:13 97.3 69 20 169/98 (121) 98 11/19/16 00:00 97.3 67 20 153/97 (115) 98 11/18/16 20:00 96.4 76 20 170/83 (112) 99 11/18/16 19:33 16 I/O 11/18/16 11/18/16 11/18/16 11/19/16 11/19/16 11/19/16 07:00 15:00 23:00 07:00 15:00 23:00 Intake Total 720 ml 984 ml 360 ml 840 ml Balance 720 ml 984 ml 360 ml 840 ml Intake Oral 720 ml 684 ml 360 ml 840 ml IV Total 300 ml # Voids 4 3 4 4 # Bowel Movements 4 3 Result Diagram: 11/19/16 0908 11/19/16 0908 Imaging Last Impressions Abdomen MRI 11/16/16 0000 Signed Impressions: Service Date/Time: October 15:34 - CONCLUSION: Large heterogeneously enhancing left adrenal mass again seen unchanged from recent CT. 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 Pheochromocytoma would be less likely with this appearance. Willie Lewis MD Chest CT 11/15/16 0000 Signed Impressions: Service Date/Time: Tuesday, November 15, 2016 13:57 - CONCLUSION: There are no suspicious lung lesions. Norman Mchugh MD FACR Chest X-Ray 11/14/16 1108 Signed Impressions: Service Date/Time: Monday, November 14, 2016 11:29 - CONCLUSION: No acute disease. Hood Schaefer MD Abdomen/Pelvis CT 11/14/16 0000 Signed Impressions: Service Date/Time: Monday, November 14, 2016 13:22 - CONCLUSION: 1. Increase in size of heterogeneously enhancing left adrenal mass. Left adrenal carcinoma can have this appearance or other entities such as pheochromocytoma. 2. Atherosclerosis. Hood Schaefer MD Objective Remarks Patient sitting in the side of the bed, thin, nad Lungs clear BL Abdomen is soft, NT, ND no edema in lower extremities Medications and IVs Current Medications Medications (Trade) Dose Ordered Sig/Yordan Route Start Time Stop Time Status Last Admin (NS Flush) 2 ml UNSCH PRN IV FLUSH 11/14/16 15:00 (NS Flush) 2 ml BID IV FLUSH 11/14/16 21:00 11/19/16 09:00 (Tylenol) 650 mg Q4H PRN PO 11/14/16 15:00 (Zofran Inj) 4 mg Q6H PRN IVP 11/14/16 15:00 11/14/16 21:02 (Tylenol) 650 mg Q6H PRN PO 11/14/16 15:00 ([place] 5-325 Mg) 1 tab Q4H PRN PO 11/14/16 15:00 11/16/16 21:55 ([place] 7.5-325 Mg) 1 tab Q4H PRN PO 11/14/16 15:00 11/18/16 18:33 (Narcan Inj) 0.4 mg UNSCH PRN IV PUSH 11/14/16 15:00 (Milk Of Magnesia Liq) 30 ml Q12H PRN PO 11/14/16 15:00 (Senokot) 17.2 mg Q12H PRN PO 11/14/16 15:00 11/14/16 21:02 (Dulcolax Supp) 10 mg DAILY PRN RECTAL 11/14/16 15:00 (Lactulose Liq) 30 ml DAILY PRN PO 11/14/16 15:00 (Catapres) 0.1 mg Q6H PRN PO 11/17/16 09:15 11/17/16 20:38 A/P Problem List: (1) Anemia ICD Code: D64.9 - Anemia, unspecified Status: Acute (2) Abdominal pain ICD Code: R10.9 - Unspecified abdominal pain Status: Acute (3) Adrenal mass, left ICD Code: E27.9 - Disorder of adrenal gland, unspecified Status: Acute (4) Thrombocytosis ICD Code: D47.3 - Essential (hemorrhagic) thrombocythemia (5) Hyperglycemia ICD Code: R73.9 - Hyperglycemia, unspecified Assessment and Plan Mr. Ferrer is a 56-year-old male patient with a known medical history of hypertension and tobacco use who presented to the ED with complaints of left upper quadrant abdominal pain. Patient states he awoke this morning with excruciating left abdominal pain that radiated up to his left chest area. Left upper quadrant abdominal pain suspect secondary to left adrenal mass Anemia with elevated RDW, iron deficiency anemia Thrombocytosis, acute Elevated CPK and CK-MB - Abdomen/pelvis CT reviewed showing increase in size of heterogeneously enhancing left adrenal mass. - CXR reviewed showing no acute disease. - EKG reviewed showing NSR, no arrhythmias noted, no ST segment changes. - Hemoglobin 8.8/Hematocrit 27.8 on presentation. Platelets 726. CPK 384, CKMB 4.9. - Status post 1 L NS bolus given in ED. - Occult stool negative. - BMP, CBC reviewed today, continued anemia with elevated RDW. LDH WNL and ferritin level low. CPK trending down. Will recheck labs in am. Follow. - 11/16 fu 24 hr urine metanephrines and catecholamines ordered by oncology. 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 - 11/17 hemoglobin stable, platelets still elevated lactic secondary to iron deficiency anemia. Follow-up 24 hour urine metanephrines and catecholamines. Follow-up hematology recommendations. Patient status post EGD and colonoscopy were gastritis and polyps reported. However EGD/colonoscopy reports poor prep. Plan repeat colonoscopy in a.m. Gen. surgery consulted and recommendations appreciated. - 11/19 patient is status post colonoscopy with polypectomy were: Polyps and diverticulosis were found and biopsied. Await pathology, continue PPI. I had consulted for CT-guided biopsy of adrenal mass. However I'll prefer to wait to the results of the 24-hour urine metanephrines and catecholamines. Surgery also consulted. Hypertension: BP sems to be stable. Required administration of Clonidine on night of 11/17. Tobacco abuse Cocaine abuse - Counselled on cessation. DVT prophylaxis: SCDs Discharge Planning Pending colonoscopy, biopsy of adrenal mass Problem Qualifiers (1) Anemia: Qualified Codes: D50.0 - Iron deficiency anemia secondary to blood loss ( chronic) (2) Abdominal pain: Qualified Codes: R10.12 - Left upper quadrant pain Fede Romero MD Nov 19, 2016 19:08
[2016-11-20 00:10] VITALS: BP 164/83; PULSE 74; RESP 17; TEMP 98.1; O2SAT 100
[2016-11-20 04:10] VITALS: BP 143/93; PULSE 70; RESP 18; TEMP 97.4; O2SAT 99
[2016-11-20 08:00] VITALS: BP 163/96; PULSE 75; RESP 16; TEMP 96.4; O2SAT 95
[2016-11-20] MEDS: SODIUM CHLORIDE 0.9% FLUSH 10 ML FLUSH IV FLUSH SCH ×2 (09:00→21:50)
--- NOTE | 2016-11-20 10:42 | PD.ONC.PN ---
Subjective Subjective Remarks Afebrile overnight. Patient resting in room. Anxious to know the results of 24hour urine. Objective Data Date Time Temp Pulse Resp B/P (MAP) Pulse Ox O2 Delivery O2 Flow Rate FiO2 11/20/16 08:00 96.4 75 16 163/96 (118) 95 11/20/16 04:10 97.4 70 18 143/93 (110) 99 11/20/16 00:10 98.1 74 17 164/83 (110) 100 11/19/16 20:10 97.7 78 18 156/92 (113) 99 11/19/16 16:00 97.6 97 16 142/96 (111) 100 11/19/16 12:00 97.7 96 16 114/84 (94) 100 11/20/16 11/20/16 11/20/16 07:00 15:00 23:00 Intake Total 480 ml Balance 480 ml Result Diagram: 11/19/1608 11/19/16 0908 Laboratory Results Laboratory Tests Test 11/19/16 18:30 Administered Medications Medications (Trade) Dose Ordered Sig/Yordan Route PRN Reason Start Time Stop Time Status Last Admin Dose Admin Sodium Chloride (NS Flush) 2 ml BID IV FLUSH 11/14/16 21:00 11/20/16 09:00 Ondansetron HCl (Zofran Inj) 4 mg Q6H PRN IVP NAUSEA OR VOMITING 11/14/16 15:00 11/14/16 21:02 Acetaminophen/ Hydrocodone Bitart ([place] 5-325 Mg) 1 tab Q4H PRN PO PAIN SCALE 3 TO 5 11/14/16 15:00 11/16/16 21:55 Acetaminophen/ Hydrocodone Bitart ([place] 7.5-325 Mg) 1 tab Q4H PRN PO PAIN SCALE 6 TO 10 11/14/16 15:00 11/18/16 18:33 Sennosides (Senokot) 17.2 mg Q12H PRN PO MODERATE - SEVERE CONSTIPATION 11/14/16 15:00 11/14/16 21:02 Clonidine (Catapres) 0.1 mg Q6H PRN PO SYS BP GREATER THAN 160 MMHG 11/17/16 09:15 11/17/16 20:38 Objective Remarks GENERAL: Middle aged male upright in bed in [facility]. SKIN: Warm and dry. HEAD: Normocephalic. EYES: No injection or drainage. NECK: Supple, trachea midline. CARDIOVASCULAR: Regular rate and rhythm RESPIRATORY: Breath sounds equal bilaterally. No accessory muscle use. GASTROINTESTINAL: Abdomen soft, non-tender, nondistended. EXTREMITIES: No cyanosis NEUROLOGICAL: awake and alert, normal speech. moving all extremities. Assessment/Plan Problem List: (1) Adrenal mass, left ICD Codes: E27.9 - Disorder of adrenal gland, unspecified Status: Acute Plan: -- MRI indicates pheochromocytoma less likely --24 hours urine pending. -- CT chest shows no obvious mass -- Colonoscopy,11/18/16 showed Colon polyps, Diverticulosis Assessment 56 y/o male admitted with nausea and abdominal pain found to have a L adrenal lesion. Plan 1. await 24 hour urine 2. continue supportive care Attending Statement The exam, history, and the medical decision-making described in the above note were completed with the assistance of the mid-level provider. I reviewed and agree with the findings presented. I attest that I had a [id number] encounter with the patient on the same day, and personally performed and documented my assessment and findings in the medical record. Abdominal pain improved. Reviewed EGD and colonoscopy findings with patient. Path pending. 24 urine studies pending. Await biopsy left adrenal mass if 24 hour urine negative for secretory pheochromocytoma. Chana Dee Nov 20, 2016 10:42 Rohit Duong MD Nov 20, 2016 16:03
[2016-11-20 12:00] VITALS: BP 136/89; PULSE 88; RESP 20; TEMP 97.9; O2SAT 98
[2016-11-20 16:00] VITALS: BP 164/90; PULSE 77; RESP 16; TEMP 98.5; O2SAT 100
--- NOTE | 2016-11-20 16:35 | HHI.PR ---
Subjective Remarks c/o some discomfort in the left flank denies cp/sob denies fevers/chills Objective Vitals Vital Signs Date Time Temp Pulse Resp B/P (MAP) Pulse Ox O2 Delivery O2 Flow Rate FiO2 11/20/16 12:00 97.9 88 20 136/89 (105) 98 11/20/16 08:00 96.4 75 16 163/96 (118) 95 11/20/16 04:10 97.4 70 18 143/93 (110) 99 11/20/16 00:10 98.1 74 17 164/83 (110) 100 11/19/16 20:10 97.7 78 18 156/92 (113) 99 I/O 11/19/16 11/19/16 11/19/16 11/20/16 11/20/16 11/20/16 07:00 15:00 23:00 07:00 15:00 23:00 Intake Total 360 ml 840 ml 480 ml Balance 360 ml 840 ml 480 ml Intake Oral 360 ml 840 ml 480 ml # Voids 4 4 3 Result Diagram: 11/19/16 0908 11/19/16 0908 Imaging Last Impressions Abdomen MRI 11/16/16 0000 Signed Impressions: Service Date/Time: October 15:34 - CONCLUSION: Large heterogeneously enhancing left adrenal mass again seen unchanged from recent CT. 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 Pheochromocytoma would be less likely with this appearance. Willie Lewis MD Chest CT 11/15/16 0000 Signed Impressions: Service Date/Time: Tuesday, November 15, 2016 13:57 - CONCLUSION: There are no suspicious lung lesions. Norman Mchugh MD FACR Chest X-Ray 11/14/16 1108 Signed Impressions: Service Date/Time: Monday, November 14, 2016 11:29 - CONCLUSION: No acute disease. Hood Schaefer MD Abdomen/Pelvis CT 11/14/16 0000 Signed Impressions: Service Date/Time: Monday, November 14, 2016 13:22 - CONCLUSION: 1. Increase in size of heterogeneously enhancing left adrenal mass. Left adrenal carcinoma can have this appearance or other entities such as pheochromocytoma. 2. Atherosclerosis. Hood Schaefer MD Objective Remarks Patient sitting in the side of the bed, thin, nad Lungs clear BL Abdomen is soft, NT, ND no edema in lower extremities Medications and IVs Current Medications Medications (Trade) Dose Ordered Sig/Yordan Route Start Time Stop Time Status Last Admin (NS Flush) 2 ml UNSCH PRN IV FLUSH 11/14/16 15:00 (NS Flush) 2 ml BID IV FLUSH 11/14/16 21:00 11/20/16 09:00 (Tylenol) 650 mg Q4H PRN PO 11/14/16 15:00 (Zofran Inj) 4 mg Q6H PRN IVP 11/14/16 15:00 11/14/16 21:02 (Tylenol) 650 mg Q6H PRN PO 11/14/16 15:00 ([place] 5-325 Mg) 1 tab Q4H PRN PO 11/14/16 15:00 11/16/16 21:55 ([place] 7.5-325 Mg) 1 tab Q4H PRN PO 11/14/16 15:00 11/18/16 18:33 (Narcan Inj) 0.4 mg UNSCH PRN IV PUSH 11/14/16 15:00 (Milk Of Magnesia Liq) 30 ml Q12H PRN PO 11/14/16 15:00 (Senokot) 17.2 mg Q12H PRN PO 11/14/16 15:00 11/14/16 21:02 (Dulcolax Supp) 10 mg DAILY PRN RECTAL 11/14/16 15:00 (Lactulose Liq) 30 ml DAILY PRN PO 11/14/16 15:00 (Catapres) 0.1 mg Q6H PRN PO 11/17/16 09:15 11/17/16 20:38 Urinary Catheter: No A/P Problem List: (1) Anemia ICD Code: D64.9 - Anemia, unspecified Status: Acute (2) Abdominal pain ICD Code: R10.9 - Unspecified abdominal pain Status: Acute (3) Adrenal mass, left ICD Code: E27.9 - Disorder of adrenal gland, unspecified Status: Acute (4) Thrombocytosis ICD Code: D47.3 - Essential (hemorrhagic) thrombocythemia (5) Hyperglycemia ICD Code: R73.9 - Hyperglycemia, unspecified Assessment and Plan Mr. Ferrer is a 56-year-old male patient with a known medical history of hypertension and tobacco use who presented to the ED with complaints of left upper quadrant abdominal pain. Patient states he awoke this morning with excruciating left abdominal pain that radiated up to his left chest area. Left upper quadrant abdominal pain suspect secondary to left adrenal mass Anemia with elevated RDW, iron deficiency anemia Thrombocytosis, acute Elevated CPK and CK-MB - Abdomen/pelvis CT reviewed showing increase in size of heterogeneously enhancing left adrenal mass. - CXR reviewed showing no acute disease. - EKG reviewed showing NSR, no arrhythmias noted, no ST segment changes. - Hemoglobin 8.8/Hematocrit 27.8 on presentation. Platelets 726. CPK 384, CKMB 4.9. - Status post 1 L NS bolus given in ED. - Occult stool negative. - BMP, CBC reviewed today, continued anemia with elevated RDW. LDH WNL and ferritin level low. CPK trending down. Will recheck labs in am. Follow. - 11/16 fu 24 hr urine metanephrines and catecholamines ordered by oncology. 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 - 11/17 hemoglobin stable, platelets still elevated lactic secondary to iron deficiency anemia. Follow-up 24 hour urine metanephrines and catecholamines. Follow-up hematology recommendations. Patient status post EGD and colonoscopy were gastritis and polyps reported. However EGD/colonoscopy reports poor prep. Plan repeat colonoscopy in a.m. Gen. surgery consulted and recommendations appreciated. - 11/19 patient is status post colonoscopy with polypectomy were: Polyps and diverticulosis were found and biopsied. Await pathology, continue PPI. I had consulted for CT-guided biopsy of adrenal mass. However I'll prefer to wait to the results of the 24-hour urine metanephrines and catecholamines. Surgery also consulted. - [address] chest did not show any lesions. Hypertension: BP sems to be stable. Required administration of Clonidine on night of 11/17. Tobacco abuse Cocaine abuse - Counselled on cessation. DVT prophylaxis: SCDs Discharge Planning pending lab results, hematology clearance Problem Qualifiers (1) Anemia: Qualified Codes: D50.0 - Iron deficiency anemia secondary to blood loss ( chronic) (2) Abdominal pain: Qualified Codes: R10.12 - Left upper quadrant pain Fede Romero MD Nov 20, 2016 16:35
[2016-11-20] MEDS: ACETAMINOPHEN/HYDROcodone 325 MG/7.5 MG TAB PO PRN ×2 (17:08→23:22)
[2016-11-20 20:10] VITALS: BP 166/99; PULSE 80; RESP 17; TEMP 96.4; O2SAT 100
[2016-11-21 00:10] VITALS: BP 161/78; PULSE 71; RESP 16; TEMP 97.8; O2SAT 100
[2016-11-21] MEDS: cloNIDine HCL 0.1 MG TAB PO PRN (00:37)
[2016-11-21 04:10] VITALS: BP 150/94; PULSE 74; RESP 17; TEMP 96.7; O2SAT 100
[2016-11-21 08:00] VITALS: BP 144/92; PULSE 72; RESP 14; TEMP 96; O2SAT 100
[2016-11-21] MEDS: SODIUM CHLORIDE 0.9% FLUSH 10 ML FLUSH IV FLUSH SCH ×2 (09:43→20:56)
[2016-11-21] MEDS: ACETAMINOPHEN/HYDROcodone 325 MG/7.5 MG TAB PO PRN ×3 (09:47→22:34)
--- NOTE | 2016-11-21 11:00 | PD.ONC.PN ---
Subjective Subjective Remarks Afebrile overnight. Patient resting in room. States he occasionally gets pain in his LUQ of his abdomen, which he attributes to eating to much. Waiting for 24hour urine to return. Objective Data Date Time Temp Pulse Resp B/P (MAP) Pulse Ox O2 Delivery O2 Flow Rate FiO2 11/21/16 08:00 96.0 72 14 144/92 (109) 100 11/21/16 04:10 96.7 74 17 150/94 (112) 100 11/21/16 00:10 97.8 71 16 161/78 (105) 100 11/20/16 20:10 96.4 80 17 166/99 (121) 100 11/20/16 16:00 98.5 77 16 164/90 (114) 100 11/20/16 12:00 97.9 88 20 136/89 (105) 98 Result Diagram: 11/19/16 0908 11/19/16 0908 Administered Medications Medications (Trade) Dose Ordered Sig/Yordan Route PRN Reason Start Time Stop Time Status Last Admin Dose Admin Sodium Chloride (NS Flush) 2 ml BID IV FLUSH 11/14/16 21:00 11/21/16 09:43 Ondansetron HCl (Zofran Inj) 4 mg Q6H PRN IVP NAUSEA OR VOMITING 11/14/16 15:00 11/14/16 21:02 Acetaminophen/ Hydrocodone Bitart ([place] 5-325 Mg) 1 tab Q4H PRN PO PAIN SCALE 3 TO 5 11/14/16 15:00 11/16/16 21:55 Acetaminophen/ Hydrocodone Bitart ([place] 7.5-325 Mg) 1 tab Q4H PRN PO PAIN SCALE 6 TO 10 11/14/16 15:00 11/21/16 09:47 Sennosides (Senokot) 17.2 mg Q12H PRN PO MODERATE - SEVERE CONSTIPATION 11/14/16 15:00 11/14/16 21:02 Clonidine (Catapres) 0.1 mg Q6H PRN PO SYS BP GREATER THAN 160 MMHG 11/17/16 09:15 11/21/16 00:37 Objective Remarks GENERAL: Middle aged male sitting up in bed in [facility]. SKIN: Warm and dry. HEAD: Normocephalic. EYES: No injection or drainage. NECK: Supple, trachea midline. CARDIOVASCULAR: Regular rate and rhythm RESPIRATORY: Breath sounds equal bilaterally. No accessory muscle use. GASTROINTESTINAL: Abdomen soft, non-tender, nondistended. EXTREMITIES: No cyanosis NEUROLOGICAL: aox3. normal speech. moving all extremities. Assessment/Plan Problem List: (1) Adrenal mass, left ICD Codes: E27.9 - Disorder of adrenal gland, unspecified Status: Acute Plan: -- MRI indicates pheochromocytoma less likely --24 hours urine pending. -- CT chest shows no obvious mass -- Colonoscopy,11/18/16 showed Colon polyps, Diverticulosis Assessment 56 y/o male admitted with nausea and abdominal pain found to have a L adrenal lesion. Plan 1. await 24 hour urine 2. continue supportive care Attending Statement The exam, history, and the medical decision-making described in the above note were completed with the assistance of the mid-level provider. I reviewed and agree with the findings presented. I attest that I had a [id number] encounter with the patient on the same day, and personally performed and documented my assessment and findings in the medical record. No significant abdominal pain. Biopsy of colon showed possible ischemic colitis. No active bleeding noted. 24 hour urine still pending. Await possible resection of adrenal mass vs biopsy after 24 hour urine result is available. Chana Dee Nov 21, 2016 11:00 Rohit Duong MD Nov 21, 2016 17:23
[2016-11-21 12:00] VITALS: BP 167/85; PULSE 77; RESP 12; TEMP 98.1; O2SAT 99
[2016-11-21 16:00] VITALS: BP 171/84; PULSE 71; RESP 14; TEMP 98; O2SAT 99
--- NOTE | 2016-11-21 18:29 | HHI.PR ---
Subjective Remarks Follow-up visit left upper quadrant abdominal pain, adrenal mass - carcinoma vs pheochromocytoma, diverticulosis. Patient seen and examined today. He is sitting in the chair. Reports he had an episode of abdominal cramping last night after eating a salad but went away with pain medication. Also have left flank pain but also went away after taking pain medication today. Patient reports not able to move his bowels 2 days now. Otherwise, denies pain and discomfort. Denies SOB/ dyspnea. Denies chest pain, palpitations, headaches, dizziness. Denies fevers, chills, n/v/d. Denies dysuria. Objective Vitals Vital Signs Date Time Temp Pulse Resp B/P (MAP) Pulse Ox O2 Delivery O2 Flow Rate FiO2 11/21/16 12:00 98.1 77 12 167/85 (112) 99 11/21/16 08:00 96.0 72 14 144/92 (109) 100 11/21/16 04:10 96.7 74 17 150/94 (112) 100 11/21/16 00:10 97.8 71 16 161/78 (105) 100 11/20/16 20:10 96.4 80 17 166/99 (121) 100 I/O 11/20/16 11/20/16 11/20/16 11/21/16 11/21/16 11/21/16 07:00 15:00 23:00 07:00 15:00 23:00 Intake Total 480 ml 960 ml Balance 480 ml 960 ml Intake Oral 480 ml 960 ml # Voids 3 4 # Bowel Movements 1 Result Diagram: 11/19/16 0908 11/19/16 0908 Imaging Last Impressions Abdomen MRI 11/16/16 0000 Signed Impressions: Service Date/Time: October 15:34 - CONCLUSION: Large heterogeneously enhancing left adrenal mass again seen unchanged from recent CT. 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 Pheochromocytoma would be less likely with this appearance. Willie Lewis MD Chest CT 11/15/16 0000 Signed Impressions: Service Date/Time: Tuesday, November 15, 2016 13:57 - CONCLUSION: There are no suspicious lung lesions. Norman Mchugh MD FACR Chest X-Ray 11/14/16 1108 Signed Impressions: Service Date/Time: Monday, November 14, 2016 11:29 - CONCLUSION: No acute disease. Hood Schaefer MD Abdomen/Pelvis CT 11/14/16 0000 Signed Impressions: Service Date/Time: Monday, November 14, 2016 13:22 - CONCLUSION: 1. Increase in size of heterogeneously enhancing left adrenal mass. Left adrenal carcinoma can have this appearance or other entities such as pheochromocytoma. 2. Atherosclerosis. Hood Schaefer MD Objective Remarks GENERAL: This is a well-nourished, well-developed patient, in no apparent distress. SKIN: Warm and dry. HEENT: Normocephalic. Pupils equal round and reactive. Nose without bleeding. Airway patent. NECK: Trachea midline. No JVD. Supple. CARDIOVASCULAR: Regular rate and rhythm without murmurs, gallops, or rubs. RESPIRATORY: Clear to auscultation. Breath sounds equal bilaterally. No wheezes , rales, or rhonchi. GASTROINTESTINAL: Abdomen soft, nondistended. Bowel Sounds normoactive x4. Tenderness to palpation left lower quadrant. MUSCULOSKELETAL: Extremities without clubbing, cyanosis, or edema. NEUROLOGICAL: Awake and alert. Oriented to time, place, person. No focal neuro deficit. Moves all extremities. Normal speech. A/P Problem List: (1) Anemia ICD Code: D64.9 - Anemia, unspecified Status: Acute (2) Abdominal pain ICD Code: R10.9 - Unspecified abdominal pain Status: Acute (3) Adrenal mass, left ICD Code: E27.9 - Disorder of adrenal gland, unspecified Status: Acute (4) Thrombocytosis ICD Code: D47.3 - Essential (hemorrhagic) thrombocythemia (5) Hyperglycemia ICD Code: R73.9 - Hyperglycemia, unspecified Assessment and Plan Mr. Ferrer is a 56-year-old male patient with a known medical history of hypertension and tobacco use who presented to the ED with complaints of left upper quadrant abdominal pain. Patient states he awoke this morning with excruciating left abdominal pain that radiated up to his left chest area. Adrenal carcinoma versus pheochromocytoma Left upper quadrant abdominal pain suspect secondary to left adrenal mass Anemia with elevated RDW, iron deficiency anemia Thrombocytosis, acute Elevated CPK and CK-MB - Abdomen/pelvis CT reviewed showing increase in size of heterogeneously enhancing left adrenal mass. - CXR reviewed showing no acute disease. - EKG reviewed showing NSR, no arrhythmias noted, no ST segment changes. - Initial Hemoglobin 8.8/Hematocrit 27.8 on presentation. Platelets 726. CPK 384, CKMB 4.9. - 1 L NS bolus given in ED. - Occult stool negative. - 24 hr urine metanephrines and catecholamines ordered by oncology. 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 - Follow-up 24 hour urine metanephrines and catecholamines. Follow-up hematology recommendations. Patient status post EGD and colonoscopy were gastritis and polyps reported. However EGD/colonoscopy reports poor prep. Plan repeat colonoscopy. - Gen. surgery consulted and recommendations appreciated. - Status post colonoscopy with polypectomy were: Polyps and diverticulosis were found and biopsied. Await pathology, continue PPI. Consulted for CT- guided biopsy of adrenal mass. However, prefer to wait to the results of the 24 -hour urine metanephrines and catecholamines. - Pending 24hr urine results Hypertension: BP 140s-160s . Clonidine PRN Tobacco abuse Cocaine abuse - Counselled on cessation. DVT prophylaxis: SCDs Discussed with patient, Dr. Salcedo Discharge Planning Plan for discharge pending hematology clearance. Lab results continues to be pending. Problem Qualifiers (1) Anemia: Qualified Codes: D50.0 - Iron deficiency anemia secondary to blood loss ( chronic) (2) Abdominal pain: Qualified Codes: R10.12 - Left upper quadrant pain Yessica Everett Nov 21, 2016 18:29
[2016-11-21 20:00] VITALS: BP 137/98; PULSE 74; RESP 18; TEMP 96.7; O2SAT 92
[2016-11-21] MEDS: MAGNESIUM HYDROXIDE SUSP 30 ML CUP PO PRN (20:56)
[2016-11-22] VITALS (7 sets, daily range): BP systolic 144–200; BP diastolic 79–110; PULSE 69–101; RESP 14–20; TEMP 96.9–99.3; O2SAT 95–100
--- NOTE | 2016-11-22 08:04 | PD.ONC.PN ---
Subjective Subjective Remarks Abdominal pain continue to improved. No CP/SOB. Anxious about possible surgery. Objective Data Date Time Temp Pulse Resp B/P (MAP) Pulse Ox O2 Delivery O2 Flow Rate FiO2 11/22/16 04:10 96.9 69 17 153/85 (107) 96 11/22/16 00:10 97.8 88 17 157/79 (105) 95 11/21/16 20:00 96.7 74 18 137/98 (111) 92 11/21/16 16:00 98.0 71 14 171/84 (113) 99 11/21/16 12:00 98.1 77 12 167/85 (112) 99 11/22/16 11/22/16 11/22/16 07:00 15:00 23:00 Intake Total 480 ml Balance 480 ml Result Diagram: 11/19/1690711/19/16907 Administered Medications Medications (Trade) Dose Ordered Sig/Yordan Route PRN Reason Start Time Stop Time Status Last Admin Dose Admin Sodium Chloride (NS Flush) 2 ml BID IV FLUSH 11/14/16 21:00 11/21/16 20:56 Ondansetron HCl (Zofran Inj) 4 mg Q6H PRN IVP NAUSEA OR VOMITING 11/14/16 15:00 11/14/16 21:02 Acetaminophen/ Hydrocodone Bitart ([place] 5-325 Mg) 1 tab Q4H PRN PO PAIN SCALE 3 TO 5 11/14/16 15:00 11/16/16 21:55 Acetaminophen/ Hydrocodone Bitart ([place] 7.5-325 Mg) 1 tab Q4H PRN PO PAIN SCALE 6 TO 10 11/14/16 15:00 11/21/16 22:34 Magnesium Hydroxide (Milk Of Magnesia Liq) 30 ml Q12H PRN PO MILD - MODERATE CONSTIPATION 11/14/16 15:00 11/21/16 20:56 Sennosides (Senokot) 17.2 mg Q12H PRN PO MODERATE - SEVERE CONSTIPATION 11/14/16 15:00 11/14/16 21:02 Clonidine (Catapres) 0.1 mg Q6H PRN PO SYS BP GREATER THAN 160 MMHG 11/17/16 09:15 11/21/16 00:37 Objective Remarks GENERAL: Well-nourished, well-developed patient. SKIN: Warm and dry. HEAD: Normocephalic. EYES: No scleral icterus. No injection or drainage. NECK: Supple, trachea midline. No JVD or lymphadenopathy. LYMPHATIC: No adenopathy. CARDIOVASCULAR: Regular rate and rhythm without murmurs. RESPIRATORY: Breath sounds equal bilaterally. No accessory muscle use. GASTROINTESTINAL: Abdomen soft, non-tender, nondistended. EXTREMITIES: No cyanosis, or edema. MUSCULOSKELETAL: Adequate muscle tone. NEUROLOGICAL: No obvious focal deficit. Awake, alert, and oriented x3. PSYCHIATRIC: Appropriate mood and affect; insight and judgment normal. Assessment/Plan Problem List: (1) Adrenal mass, left ICD Codes: E27.9 - Disorder of adrenal gland, unspecified Status: Acute Plan: -- MRI indicates pheochromocytoma less likely -- 24 hours urine pending. -- CT chest shows no obvious mass -- Colonoscopy,11/18/16 showed Colon polyps, path + adenomatous polyps. Diverticulosis Assessment 56 y/o male admitted with nausea and abdominal pain found to have a L adrenal lesion. Plan 1. await 24 hour urine, likely will need surgical resection of the adrenal mass. 2. continue supportive care Rohit Duong MD Nov 22, 2016 08:04
--- NOTE | 2016-11-22 14:27 | HHI.PR ---
Subjective Remarks Follow-up visit left upper quadrant abdominal pain, adrenal mass - carcinoma vs pheochromocytoma, diverticulosis. Patient seen and examined today. He is sitting in the bed. He is doing and feeling better. Denies any abdominal pain or flank pain. Able to tolerate food. Denies pain and discomfort. Denies SOB / dyspnea. Denies chest pain, palpitations, headaches, dizziness. Denies fevers , chills, n/v/d. Denies dysuria. Objective Vitals Vital Signs Date Time Temp Pulse Resp B/P (MAP) Pulse Ox O2 Delivery O2 Flow Rate FiO2 11/22/16 13:41 152/83 (106) 11/22/16 12:00 98.0 101 18 200/110 (140) 96 11/22/16 08:00 98.9 87 14 144/93 (110) 97 11/22/16 04:10 96.9 69 17 153/85 (107) 96 11/22/16 00:10 97.8 88 17 157/79 (105) 95 11/21/16 20:00 96.7 74 18 137/98 (111) 92 11/21/16 16:00 98.0 71 14 171/84 (113) 99 I/O 11/21/16 11/21/16 11/21/16 11/22/16 11/22/16 11/22/16 07:00 15:00 23:00 07:00 15:00 23:00 Intake Total 720 ml 480 ml Balance 720 ml 480 ml Intake Oral 720 ml 480 ml # Voids 4 3 # Bowel Movements 0 Result Diagram: 11/19/16 0908 11/19/16 0908 Imaging Last Impressions Abdomen MRI 11/16/16 0000 Signed Impressions: Service Date/Time: October 15:34 - CONCLUSION: Large heterogeneously enhancing left adrenal mass again seen unchanged from recent CT. 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 Pheochromocytoma would be less likely with this appearance. Willie Lewis MD Chest CT 11/15/16 0000 Signed Impressions: Service Date/Time: Tuesday, November 15, 2016 13:57 - CONCLUSION: There are no suspicious lung lesions. Norman Mchugh MD FACR Chest X-Ray 11/14/16 1108 Signed Impressions: Service Date/Time: Monday, November 14, 2016 11:29 - CONCLUSION: No acute disease. Hood Schaefer MD Abdomen/Pelvis CT 11/14/16 0000 Signed Impressions: Service Date/Time: Monday, November 14, 2016 13:22 - CONCLUSION: 1. Increase in size of heterogeneously enhancing left adrenal mass. Left adrenal carcinoma can have this appearance or other entities such as pheochromocytoma. 2. Atherosclerosis. Hood Schaefer MD Objective Remarks GENERAL: This is a well-nourished, well-developed patient, in no apparent distress. SKIN: Warm and dry. HEENT: Normocephalic. Pupils equal round and reactive. Nose without bleeding. Airway patent. NECK: Trachea midline. No JVD. Supple. CARDIOVASCULAR: Regular rate and rhythm without murmurs, gallops, or rubs. RESPIRATORY: Clear to auscultation. Breath sounds equal bilaterally. No wheezes , rales, or rhonchi. GASTROINTESTINAL: Abdomen soft, nondistended. Bowel Sounds normoactive x4. Tenderness to palpation left lower quadrant. MUSCULOSKELETAL: Extremities without clubbing, cyanosis, or edema. NEUROLOGICAL: Awake and alert. Oriented to time, place, person. No focal neuro deficit. Moves all extremities. Normal speech. A/P Problem List: (1) Anemia ICD Code: D64.9 - Anemia, unspecified Status: Acute (2) Abdominal pain ICD Code: R10.9 - Unspecified abdominal pain Status: Acute (3) Adrenal mass, left ICD Code: E27.9 - Disorder of adrenal gland, unspecified Status: Acute (4) Thrombocytosis ICD Code: D47.3 - Essential (hemorrhagic) thrombocythemia (5) Hyperglycemia ICD Code: R73.9 - Hyperglycemia, unspecified Assessment and Plan Mr. Ferrer is a 56-year-old male patient with a known medical history of hypertension and tobacco use who presented to the ED with complaints of left upper quadrant abdominal pain. Patient states he awoke this morning with excruciating left abdominal pain that radiated up to his left chest area. Adrenal carcinoma, pheochromocytoma Left upper quadrant abdominal pain suspect secondary to left adrenal mass Anemia with elevated RDW, iron deficiency anemia Thrombocytosis, acute Elevated CPK and CK-MB - Abdomen/pelvis CT reviewed showing increase in size of heterogeneously enhancing left adrenal mass. - CXR reviewed showing no acute disease. - EKG reviewed showing NSR, no arrhythmias noted, no ST segment changes. - Initial Hemoglobin 8.8/Hematocrit 27.8 on presentation. Platelets 726. CPK 384, CKMB 4.9. - 1 L NS bolus given in ED. - Occult stool negative. - 24 hr urine metanephrines and catecholamines ordered by oncology. 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 - Follow-up 24 hour urine metanephrines and catecholamines. Follow-up hematology recommendations. Patient status post EGD and colonoscopy were gastritis and polyps reported. However EGD/colonoscopy reports poor prep. Plan repeat colonoscopy. - Gen. surgery consulted and recommendations appreciated. - Status post colonoscopy with polypectomy were: Polyps and diverticulosis were found and biopsied. Await pathology, continue PPI. Consulted for CT- guided biopsy of adrenal mass. However, prefer to wait to the results of the 24 -hour urine metanephrines and catecholamines. - Pending 24hr urine results, initial results showed elevated urine norepinephrine 766 Hypertension: BP 140s-160s . Clonidine PRN Tobacco abuse Cocaine abuse - Counselled on cessation. DVT prophylaxis: SCDs Discussed with patient, Dr. Salcedo Discharge Planning Plan for discharge pending hematology clearance. Lab results continues to be pending. Problem Qualifiers (1) Anemia: Qualified Codes: D50.0 - Iron deficiency anemia secondary to blood loss ( chronic) (2) Abdominal pain: Qualified Codes: R10.12 - Left upper quadrant pain Yessica Everett Nov 22, 2016 14:27
--- NOTE | 2016-11-22 16:00 | HHI.GIFU ---
Subjective Remarks Resting in bed. No complaints Tolerating diet. No nausea/vomiting. No abdominal pain. No bleeding. (Yohana Osullivan) Objective Vitals I&O Vital Signs Date Time Temp Pulse Resp B/P (MAP) Pulse Ox O2 Delivery O2 Flow Rate FiO2 11/22/16 13:41 152/83 (106) 11/22/16 12:00 98.0 101 18 200/110 (140) 96 11/22/16 08:00 98.9 87 14 144/93 (110) 97 11/22/16 04:10 96.9 69 17 153/85 (107) 96 11/22/16 00:10 97.8 88 17 157/79 (105) 95 11/21/16 20:00 96.7 74 18 137/98 (111) 92 11/21/16 16:00 98.0 71 14 171/84 (113) 99 I/O 11/21/16 11/21/16 11/21/16 11/22/16 11/22/16 11/22/16 07:00 15:00 23:00 07:00 15:00 23:00 Intake Total 720 ml 480 ml Balance 720 ml 480 ml Intake Oral 720 ml 480 ml # Voids 4 3 # Bowel Movements 0 Imaging Last Impressions Abdomen MRI 11/16/16 0000 Signed Impressions: Service Date/Time: October 15:34 - CONCLUSION: Large heterogeneously enhancing left adrenal mass again seen unchanged from recent CT. 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 Pheochromocytoma would be less likely with this appearance. Willie Lewis MD Chest CT 11/15/16 0000 Signed Impressions: Service Date/Time: Tuesday, November 15, 2016 13:57 - CONCLUSION: There are no suspicious lung lesions. Norman Mchugh MD FACR Chest X-Ray 11/14/16 1108 Signed Impressions: Service Date/Time: Monday, November 14, 2016 11:29 - CONCLUSION: No acute disease. Hood Schaefer MD Abdomen/Pelvis CT 11/14/16 0000 Signed Impressions: Service Date/Time: Monday, November 14, 2016 13:22 - CONCLUSION: 1. Increase in size of heterogeneously enhancing left adrenal mass. Left adrenal carcinoma can have this appearance or other entities such as pheochromocytoma. 2. Atherosclerosis. Hood Schaefer MD Physical Exam HEENT: Normocephalic; atraumatic; no jaundice CHEST: CTA CARDIAC: RRR ABDOMEN: Soft, nondistended, nontender; no hepatosplenomegaly; bowel sounds are present in all four quadrants. EXTREMITIES: No clubbing, cyanosis, or edema. SKIN: Normal; no rash; no jaundice. 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 (Yohana Osullivan) Assessment and Plan Plan ASSESSMENT - Abdominal pain. CT Scan abdomen and pelvis with iv contrast (11/14/16)---> Increase in size of heterogeneously enhancing left adrenal mass. Left adrenal carcinoma can have this appearance or other entities such as pheochromocytoma. Atherosclerosis. S/P EGD/Incomplete colonoscopy (11/17/16)---> esophagitis, gastritis, colon polyp, poor prep. Pathology adenomatous polyp, transverse and sigmoid colon. Rpt. Colonoscopy (11/18/16)---> Colon polyps, Diverticulosis. Pathology pending. Rpt. Colonoscopy 1 year. Clinically doing well, no complaints at this time. - Abnormal imaging on ct with left adrenal mass, ? left adrenal carcinoma vs. pheochromocytoma. MRI Abdomen with and without contrast (11/16/16)---> Large heterogeneously enhancing left adrenal mass again seen unchanged from recent CT. 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 Pheochromocytoma would be less likely with this appearance. GS following, Oncolosgy following, possible resection of adrenal mass. - Change in bowel habits, constipation. S/P EGD/Colonoscopy as above. - Abnormal weight loss - 20 lbs in last few months. Imaging, EGD/Colonoscopy as above. - Anemia. EGD/Colonoscopy as above. - Thrombocytosis - + Tobacco. - PSA per attending. PLAN - Diet as tolerated - PPI - Monitor labs - GS following - Colonoscopy in 1 year - GI will sign off, please reconsult as needed - PT seen and examined by Dr. Chaparro and myself and this note is written on her behalf (Yohana Osullivan) Yohana Osullvian Nov 22, 2016 16:00 Francisca Chaparro MD Nov 24, 2016 09:49
[2016-11-22] MEDS: SODIUM CHLORIDE 0.9% FLUSH 10 ML FLUSH IV FLUSH SCH (20:15)
[2016-11-22] MEDS: ACETAMINOPHEN/HYDROcodone 325 MG/5 MG TAB PO PRN (22:03)
[2016-11-23] VITALS: BP 164/71; PULSE 77; RESP 18; TEMP 97.7; O2SAT 99
[2016-11-23] MEDS: cloNIDine HCL 0.1 MG TAB PO PRN (01:46)
[2016-11-23 04:00] VITALS: BP 163/85; PULSE 66; RESP 17; TEMP 97.1; O2SAT 100
[2016-11-23 08:00] VITALS: BP 154/91; PULSE 61; RESP 16; TEMP 97.5; O2SAT 94
--- NOTE | 2016-11-23 09:12 | PD.ONC.PN ---
Subjective Subjective Remarks Afebrile overnight. Patient very agitated/anxious. Angry that he cannot eat breakfast as he might be having procedure today. No pain. Objective Data Date Time Temp Pulse Resp B/P (MAP) Pulse Ox O2 Delivery O2 Flow Rate FiO2 11/23/16 08:00 97.5 61 16 154/91 (112) 94 11/23/16 04:00 97.1 66 17 163/85 (111) 100 11/23/16 00:00 97.7 77 18 164/71 (102) 99 11/22/16 20:00 97.0 100 20 176/90 (118) 100 11/22/16 16:00 99.3 89 14 151/89 (109) 100 11/22/16 13:41 152/83 (106) 11/22/16 12:00 98.0 101 18 200/110 (140) 96 11/23/16 11/23/16 11/23/16 07:00 15:00 23:00 Intake Total 210 ml Balance 210 ml Result Diagram: 11/19/1690711/19/16907 Administered Medications Medications (Trade) Dose Ordered Sig/Yordan Route PRN Reason Start Time Stop Time Status Last Admin Dose Admin Sodium Chloride (NS Flush) 2 ml BID IV FLUSH 11/14/16 21:00 11/22/16 20:15 Ondansetron HCl (Zofran Inj) 4 mg Q6H PRN IVP NAUSEA OR VOMITING 11/14/16 15:00 11/14/16 21:02 Acetaminophen/ Hydrocodone Bitart ([place] 5-325 Mg) 1 tab Q4H PRN PO PAIN SCALE 3 TO 5 11/14/16 15:00 11/22/16 22:03 Acetaminophen/ Hydrocodone Bitart ([place] 7.5-325 Mg) 1 tab Q4H PRN PO PAIN SCALE 6 TO 10 11/14/16 15:00 11/21/16 22:34 Magnesium Hydroxide (Milk Of Magnesia Liq) 30 ml Q12H PRN PO MILD - MODERATE CONSTIPATION 11/14/16 15:00 11/21/16 20:56 Sennosides (Senokot) 17.2 mg Q12H PRN PO MODERATE - SEVERE CONSTIPATION 11/14/16 15:00 11/14/16 21:02 Clonidine (Catapres) 0.1 mg Q6H PRN PO SYS BP GREATER THAN 160 MMHG 11/17/16 09:15 11/23/16 01:46 Objective Remarks GENERAL: Middle aged male upright in bed. talking excitedly. +pressured speech. SKIN: Warm and dry. HEAD: Normocephalic. EYES: No injection or drainage. NECK: Supple, trachea midline. CARDIOVASCULAR: Regular rate and rhythm RESPIRATORY: Breath sounds equal bilaterally. No accessory muscle use. GASTROINTESTINAL: Abdomen soft, non-tender, nondistended. EXTREMITIES: No cyanosis NEUROLOGICAL: awake and alert, normal speech. moving extremities. Assessment/Plan Problem List: (1) Adrenal mass, left ICD Codes: E27.9 - Disorder of adrenal gland, unspecified Status: Acute Plan: -- MRI indicates pheochromocytoma less likely -- 24 hours urine shows elevated norepinephrines. -- CT chest shows no obvious mass -- Colonoscopy,11/18/16 showed Colon polyps, path + adenomatous polyps. Diverticulosis Assessment 56 y/o male admitted with nausea and abdominal pain found to have a L adrenal lesion. Plan 1. urine--showed elevated norepinephrines. will order MIGB scan to help discern if this is pheochromocytoma. 2. continue supportive care Attending Statement The exam, history, and the medical decision-making described in the above note were completed with the assistance of the mid-level provider. I reviewed and agree with the findings presented. I attest that I had a [id number] encounter with the patient on the same day, and personally performed and documented my assessment and findings in the medical record. No new symptoms. Urine showed elevated norepinephrine, Urine metanephrine pending. Will get MIBG scan to see if any mets. Can be d/c if able to arrange outpatient f/u with surgery. Chana Dee Nov 23, 2016 09:12 Rohit Duong MD Nov 23, 2016 16:24
[2016-11-23 12:00] VITALS: BP 142/86; PULSE 80; RESP 16; TEMP 97.7; O2SAT 98
[2016-11-23] MEDS: ACETAMINOPHEN/HYDROcodone 325 MG/7.5 MG TAB PO PRN (12:25)
[2016-11-23] MEDS: SODIUM CHLORIDE 0.9% FLUSH 10 ML FLUSH IV FLUSH SCH ×2 (12:28→20:32)
--- NOTE | 2016-11-23 13:50 | HHI.PR ---
Subjective Remarks Follow-up visit left upper quadrant abdominal pain, adrenal mass - carcinoma vs pheochromocytoma, diverticulosis. Patient seen and examined today. He is sitting in chair. Very upset. States he was told to not eat and now to eat because of planned procedure. C/o 8/10 left abdominal pain, states " I think whatever it is inside me is growing and they need to do something about it." C/ o nausea, overall not feeling good and very upset. Denies SOB/ dyspnea. Denies chest pain, palpitations, headaches, dizziness. Denies fevers, chills. Denies dysuria. Objective Vitals Vital Signs Date Time Temp Pulse Resp B/P (MAP) Pulse Ox O2 Delivery O2 Flow Rate FiO2 11/23/16 08:00 97.5 61 16 154/91 (112) 94 11/23/16 04:00 97.1 66 17 163/85 (111) 100 11/23/16 00:00 97.7 77 18 164/71 (102) 99 11/22/16 20:00 97.0 100 20 176/90 (118) 100 11/22/16 16:00 99.3 89 14 151/89 (109) 100 I/O 11/22/16 11/22/16 11/22/16 11/23/16 11/23/16 11/23/16 07:00 15:00 23:00 07:00 15:00 23:00 Intake Total 480 ml 1220 ml 210 ml Balance 480 ml 1220 ml 210 ml Intake Oral 480 ml 1220 ml 210 ml # Voids 3 9 2 # Bowel Movements 1 Result Diagram: 11/19/16 0908 11/19/16 0908 Imaging Last Impressions Abdomen MRI 11/16/16 0000 Signed Impressions: Service Date/Time: October 15:34 - CONCLUSION: Large heterogeneously enhancing left adrenal mass again seen unchanged from recent CT. 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 Pheochromocytoma would be less likely with this appearance. Willie Lewis MD Chest CT 11/15/16 0000 Signed Impressions: Service Date/Time: Tuesday, November 15, 2016 13:57 - CONCLUSION: There are no suspicious lung lesions. Norman Mchugh MD FACR Chest X-Ray 11/14/16 1108 Signed Impressions: Service Date/Time: Monday, November 14, 2016 11:29 - CONCLUSION: No acute disease. Hood Schaefer MD Abdomen/Pelvis CT 11/14/16 0000 Signed Impressions: Service Date/Time: Monday, November 14, 2016 13:22 - CONCLUSION: 1. Increase in size of heterogeneously enhancing left adrenal mass. Left adrenal carcinoma can have this appearance or other entities such as pheochromocytoma. 2. Atherosclerosis. Hood Schaefer MD Objective Remarks GENERAL: This is a well-nourished, well-developed patient, in no apparent distress. SKIN: Warm and dry. HEENT: Normocephalic. Pupils equal round and reactive. Nose without bleeding. Airway patent. NECK: Trachea midline. No JVD. Supple. CARDIOVASCULAR: Regular rate and rhythm without murmurs, gallops, or rubs. RESPIRATORY: Clear to auscultation. Breath sounds equal bilaterally. No wheezes , rales, or rhonchi. GASTROINTESTINAL: Abdomen soft, nondistended. Bowel Sounds normoactive x4. Tenderness to palpation left lower quadrant. MUSCULOSKELETAL: Extremities without clubbing, cyanosis, or edema. NEUROLOGICAL: Awake and alert. Oriented to time, place, person. No focal neuro deficit. Moves all extremities. Normal speech. A/P Problem List: (1) Anemia ICD Code: D64.9 - Anemia, unspecified Status: Acute (2) Abdominal pain ICD Code: R10.9 - Unspecified abdominal pain Status: Acute (3) Adrenal mass, left ICD Code: E27.9 - Disorder of adrenal gland, unspecified Status: Acute (4) Thrombocytosis ICD Code: D47.3 - Essential (hemorrhagic) thrombocythemia (5) Hyperglycemia ICD Code: R73.9 - Hyperglycemia, unspecified Assessment and Plan Mr. Ferrer is a 56-year-old male patient with a known medical history of hypertension and tobacco use who presented to the ED with complaints of left upper quadrant abdominal pain. Patient states he awoke this morning with excruciating left abdominal pain that radiated up to his left chest area. Adrenal carcinoma, pheochromocytoma Left upper quadrant abdominal pain suspect secondary to left adrenal mass Anemia with elevated RDW, iron deficiency anemia Thrombocytosis, acute Elevated CPK and CK-MB - Abdomen/pelvis CT reviewed showing increase in size of heterogeneously enhancing left adrenal mass. - CXR reviewed showing no acute disease. - EKG reviewed showing NSR, no arrhythmias noted, no ST segment changes. - Initial Hemoglobin 8.8/Hematocrit 27.8 on presentation. Platelets 726. CPK 384, CKMB 4.9. - 1 L NS bolus given in ED. - Occult stool negative. - 24 hr urine metanephrines and catecholamines ordered by oncology. 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 - Follow-up 24 hour urine metanephrines and catecholamines. Follow-up hematology recommendations. Patient status post EGD and colonoscopy were gastritis and polyps reported. However EGD/colonoscopy reports poor prep. Plan repeat colonoscopy. - Gen. surgery consulted and recommendations appreciated. - Status post colonoscopy with polypectomy were: Polyps and diverticulosis were found and biopsied. Await pathology, continue PPI. Consulted for CT- guided biopsy of adrenal mass. However, prefer to wait to the results of the 24 -hour urine metanephrines and catecholamines. - Pending 24hr urine results, initial results showed elevated urine norepinephrine 766 - Plan for MIGB scan by hem/onc to help discern if this is pheochromocytoma. Pain management. Hypertension: BP 140s-160s . Clonidine PRN Tobacco abuse Cocaine abuse - Counselled on cessation. DVT prophylaxis: SCDs Discussed with patient, Dr. Salcedo Discharge Planning Plan for discharge pending hematology clearance. Lab results continues to be pending. Problem Qualifiers (1) Anemia: Qualified Codes: D50.0 - Iron deficiency anemia secondary to blood loss ( chronic) (2) Abdominal pain: Qualified Codes: R10.12 - Left upper quadrant pain Yessica Everett Nov 23, 2016 13:50
[2016-11-23 16:00] VITALS: BP 142/90; PULSE 72; RESP 16; TEMP 98; O2SAT 98
[2016-11-23 20:00] VITALS: BP 145/87; PULSE 110; RESP 20; TEMP 98.1; O2SAT 97
[2016-11-23] MEDS: ACETAMINOPHEN/HYDROcodone 325 MG/5 MG TAB PO PRN (22:14)
[2016-11-24] VITALS (7 sets, daily range): BP systolic 133–186; BP diastolic 60–100; PULSE 68–109; RESP 16–20; TEMP 96.4–98.1; O2SAT 98–100
--- NOTE | 2016-11-24 09:41 | PD.ONC.PN ---
Subjective Subjective Remarks Afebrile overnight. Patient frustrated that he is NPO. Wants to be able to eat. Discussed my conversation with the lab this morning. we are waiting for the 24 hour urine to return. Patient expressed frustration that he might be discharged home soon. Wants to wait in the hospital for biopsy, return of pathology and possible surgery. Frustrated that his boss and landlord will not understand if he goes home before he has a diagnosis. No complaints of pain. Objective Data Date Time Temp Pulse Resp B/P (MAP) Pulse Ox O2 Delivery O2 Flow Rate FiO2 11/24/16 08:59 96.5 85 16 146/94 (111) 99 11/24/16 04:00 97.8 68 20 153/82 (105) 100 11/24/16 00:00 98.1 92 20 186/82 (116) 98 11/23/16 20:00 98.1 110 20 145/87 (106) 97 11/23/16 16:00 98.0 72 16 142/90 (107) 98 11/23/16 12:00 97.7 80 16 142/86 (104) 98 11/24/16 11/24/16 11/24/16 07:00 15:00 23:00 Intake Total 240 ml Balance 240 ml Administered Medications Medications (Trade) Dose Ordered Sig/Yordan Route PRN Reason Start Time Stop Time Status Last Admin Dose Admin Sodium Chloride (NS Flush) 2 ml BID IV FLUSH 11/14/16 21:00 11/23/16 20:32 Ondansetron HCl (Zofran Inj) 4 mg Q6H PRN IVP NAUSEA OR VOMITING 11/14/16 15:00 11/14/16 21:02 Acetaminophen/ Hydrocodone Bitart ([place] 5-325 Mg) 1 tab Q4H PRN PO PAIN SCALE 3 TO 5 11/14/16 15:00 11/23/16 22:14 Acetaminophen/ Hydrocodone Bitart ([place] 7.5-325 Mg) 1 tab Q4H PRN PO PAIN SCALE 6 TO 10 11/14/16 15:00 11/23/16 12:25 Magnesium Hydroxide (Milk Of Magnesia Liq) 30 ml Q12H PRN PO MILD - MODERATE CONSTIPATION 11/14/16 15:00 11/21/16 20:56 Sennosides (Senokot) 17.2 mg Q12H PRN PO MODERATE - SEVERE CONSTIPATION 11/14/16 15:00 11/14/16 21:02 Clonidine (Catapres) 0.1 mg Q6H PRN PO SYS BP GREATER THAN 160 MMHG 11/17/16 09:15 11/23/16 01:46 Objective Remarks GENERAL: Middle aged male sitting up in chair next to bed. Anxious, frustrated. SKIN: Warm and dry. HEAD: Normocephalic. EYES: No injection or drainage. NECK: Supple, trachea midline. CARDIOVASCULAR: Regular rate and rhythm RESPIRATORY: Breath sounds equal bilaterally. No accessory muscle use. GASTROINTESTINAL: Abdomen soft, non-tender, nondistended. EXTREMITIES: No cyanosis NEUROLOGICAL: awake and alert, normal speech. moving extremities. Assessment/Plan Problem List: (1) Adrenal mass, left ICD Codes: E27.9 - Disorder of adrenal gland, unspecified Status: Acute Plan: -- MRI indicates pheochromocytoma less likely -- 24 hours urine shows elevated norepinephrines. -- CT chest shows no obvious mass -- Colonoscopy,11/18/16 showed Colon polyps, path + adenomatous polyps. Diverticulosis Assessment 56 y/o male admitted with nausea and abdominal pain found to have a L adrenal lesion. Plan 1. await 24 hours urine--UPDATE: 24 hour urine returned showing very high metanephrines. awaiting call back from surgery to discuss plan 2. MIBG scan planned for Sunday Attending Statement The exam, history, and the medical decision-making described in the above note were completed with the assistance of the mid-level provider. I reviewed and agree with the findings presented. I attest that I had a [id number] encounter with the patient on the same day, and personally performed and documented my assessment and findings in the medical record. Had episode of abdominal pain yesterday. Upset that he is NPO and was told that he will be d/ c without the surgery. 24 hour urine metanepherine is markedly elevated c/w pheochromocytoma. Patient will need resection of the left adrenal mass. Plan to get MIBG scan Sunday to see if he has any mets disease. He will need alpha sofy per surgery before surgical intervention. Chana Dee Nov 24, 2016 09:41 Rohit Duong MD Nov 24, 2016 15:33
[2016-11-24] MEDS: SODIUM CHLORIDE 0.9% FLUSH 10 ML FLUSH IV FLUSH SCH ×2 (10:28→23:08)
[2016-11-24 12:02] LABS: METANEPHRINE 24 COLLECTION DUR 24 h
[2016-11-24] MEDS: ACETAMINOPHEN/HYDROcodone 325 MG/7.5 MG TAB PO PRN (12:23)
--- NOTE | 2016-11-24 13:21 | HHI.PR ---
Subjective Remarks Follow-up visit left upper quadrant abdominal pain, adrenal mass - carcinoma vs pheochromocytoma, diverticulosis. Patient seen and examined today. Walking around the unit. States he is doing much better. States he has been informed today that he has pheochromocytoma. Able to tolerate food. Patient denies pain / discomfort. Denies N/v/d. Denies SOB, dyspnea. Objective Vitals Vital Signs Date Time Temp Pulse Resp B/P (MAP) Pulse Ox O2 Delivery O2 Flow Rate FiO2 11/24/16 12:35 150/92 (111) 11/24/16 12:21 96.8 75 18 166/100 (122) 99 11/24/16 08:59 96.5 85 16 146/94 (111) 99 11/24/16 04:00 97.8 68 20 153/82 (105) 100 11/24/16 00:00 98.1 92 20 186/82 (116) 98 11/23/16 20:00 98.1 110 20 145/87 (106) 97 11/23/16 16:00 98.0 72 16 142/90 (107) 98 I/O 11/23/16 11/23/16 11/23/16 11/24/16 11/24/16 11/24/16 07:00 15:00 23:00 07:00 15:00 23:00 Intake Total 210 ml 2200 ml 240 ml Balance 210 ml 2200 ml 240 ml Intake Oral 210 ml 2200 ml 240 ml # Voids 2 10 1 Imaging Last Impressions Abdomen MRI 11/16/16 0000 Signed Impressions: Service Date/Time: October 15:34 - CONCLUSION: Large heterogeneously enhancing left adrenal mass again seen unchanged from recent CT. 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 Pheochromocytoma would be less likely with this appearance. Willie Lewis MD Chest CT 11/15/16 0000 Signed Impressions: Service Date/Time: Tuesday, November 15, 2016 13:57 - CONCLUSION: There are no suspicious lung lesions. Norman Mchugh MD FACR Chest X-Ray 11/14/16 1108 Signed Impressions: Service Date/Time: Monday, November 14, 2016 11:29 - CONCLUSION: No acute disease. Hood Schaefer MD Abdomen/Pelvis CT 11/14/16 0000 Signed Impressions: Service Date/Time: Monday, November 14, 2016 13:22 - CONCLUSION: 1. Increase in size of heterogeneously enhancing left adrenal mass. Left adrenal carcinoma can have this appearance or other entities such as pheochromocytoma. 2. Atherosclerosis. Hood Schaefer MD Objective Remarks GENERAL: This is a well-nourished, well-developed patient, in no apparent distress. SKIN: Warm and dry. HEENT: Normocephalic. Pupils equal round and reactive. Nose without bleeding. Airway patent. NECK: Trachea midline. No JVD. Supple. CARDIOVASCULAR: Regular rate and rhythm without murmurs, gallops, or rubs. RESPIRATORY: Clear to auscultation. Breath sounds equal bilaterally. No wheezes , rales, or rhonchi. GASTROINTESTINAL: Abdomen soft, nondistended. Bowel Sounds normoactive x4. Tenderness to palpation left lower quadrant. MUSCULOSKELETAL: Extremities without clubbing, cyanosis, or edema. NEUROLOGICAL: Awake and alert. Oriented to time, place, person. No focal neuro deficit. Moves all extremities. Normal speech. A/P Problem List: (1) Anemia ICD Code: D64.9 - Anemia, unspecified Status: Acute (2) Abdominal pain ICD Code: R10.9 - Unspecified abdominal pain Status: Acute (3) Adrenal mass, left ICD Code: E27.9 - Disorder of adrenal gland, unspecified Status: Acute (4) Thrombocytosis ICD Code: D47.3 - Essential (hemorrhagic) thrombocythemia (5) Hyperglycemia ICD Code: R73.9 - Hyperglycemia, unspecified Assessment and Plan Mr. Ferrer is a 56-year-old male patient with a known medical history of hypertension and tobacco use who presented to the ED with complaints of left upper quadrant abdominal pain. Patient states he awoke this morning with excruciating left abdominal pain that radiated up to his left chest area. Adrenal carcinoma, pheochromocytoma Left upper quadrant abdominal pain suspect secondary to left adrenal mass Anemia with elevated RDW, iron deficiency anemia Thrombocytosis, acute Elevated CPK and CK-MB - Abdomen/pelvis CT reviewed showing increase in size of heterogeneously enhancing left adrenal mass. - CXR reviewed showing no acute disease. - EKG reviewed showing NSR, no arrhythmias noted, no ST segment changes. - Initial Hemoglobin 8.8/Hematocrit 27.8 on presentation. Platelets 726. CPK 384, CKMB 4.9. - 1 L NS bolus given in ED. - Occult stool negative. - 24 hr urine metanephrines and catecholamines ordered by oncology. 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 - Follow-up 24 hour urine metanephrines and catecholamines. Follow-up hematology recommendations. Patient status post EGD and colonoscopy were gastritis and polyps reported. However EGD/colonoscopy reports poor prep. Plan repeat colonoscopy. - Gen. surgery consulted and recommendations appreciated. - Status post colonoscopy with polypectomy were: Polyps and diverticulosis were found and biopsied. Await pathology, continue PPI. Consulted for CT- guided biopsy of adrenal mass. However, prefer to wait to the results of the 24 -hour urine metanephrines and catecholamines. - Pending 24hr urine results, initial results showed elevated urine norepinephrine 766 - Plan for MIGB scan by hem/onc Sunday. Pain management continues. - 24hr urine showed Normetanephrine 00020, total metanephrine 24h 18085. Hypertension: BP 140s-160s . Clonidine PRN Tobacco abuse Cocaine abuse - Counselled on cessation. DVT prophylaxis: SCDs Discussed with patient, Dr. Salcedo Discharge Planning Plan for discharge pending hematology clearance. Lab results continues to be pending. Problem Qualifiers (1) Anemia: Qualified Codes: D50.0 - Iron deficiency anemia secondary to blood loss ( chronic) (2) Abdominal pain: Qualified Codes: R10.12 - Left upper quadrant pain Yessica Everett Nov 24, 2016 13:21
[2016-11-24 16:07] LABS: BASOPHIL # 0.2 TH/MM3 (0-0.2); BASOPHIL % 1.5 % (0.0-2.0); EOSINOPHIL # 0.2 TH/MM3 (0-0.4); EOSINOPHIL % 1.7 % (0.0-4.0); HEMO FLAGS DIFF FINAL; LYMPH % 28.1 % (9.0-44.0); LYMPHOCYTE # 3.7 TH/MM3 (1.0-4.8); MEAN CELL VOLUME 83.9 FL (80.0-100.0); MEAN CORPUSCULAR HEMOGLOBIN 25.6 PG (27.0-34.0); MEAN CORPUSCULAR HGB CONC 30.6 % (32.0-36.0); MONO % 7.2 % (0.0-8.0); NEUT % 61.5 % (16.0-70.0); PLATELET COUNT 664 TH/MM3 (150-450); RED BLOOD COUNT 3.93 MIL/MM3 (4.50-5.90); RED CELL DISTRIBUTION WIDTH 18.1 % (11.6-17.2)
[2016-11-24 16:16] LABS: ANION GAP 14 MEQ/L (5-15); AST (GOT) 16 U/L (15-37); BLOOD UREA NITROGEN 13 MG/DL (7-18); CHLORIDE 95 MEQ/L (98-107); GLOMERULAR FILTRATION RATE 59 ML/MIN (>89); POTASSIUM 4.1 MEQ/L (3.5-5.1); SODIUM (NA) 134 MEQ/L (136-145)
[2016-11-24 16:17] LABS: ALT (GPT) 42 U/L (12-78)
[2016-11-24 16:20] LABS: ALKALINE PHOSPHATASE 198 U/L (45-117); TOTAL BILIRUBIN ADULT 0.3 MG/DL (0.2-1.0)
--- NOTE | 2016-11-24 18:30 | HHI.PR ---
Subjective Subjective Notes Ambulating in room No issues Objective Vitals/I&O Vital Signs Date Time Temp Pulse Resp B/P (MAP) Pulse Ox O2 Delivery O2 Flow Rate FiO2 11/24/16 16:00 96.4 109 16 133/60 (84) 99 Labs Laboratory Tests Test 11/24/16 15:54 White Blood Count 13.0 Red Blood Count 3.93 Hemoglobin 10.1 Hematocrit 33.0 Mean Corpuscular Volume 83.9 Mean Corpuscular Hemoglobin 25.6 Mean Corpuscular Hemoglobin Concent 30.6 Red Cell Distribution Width 18.1 Platelet Count 664 Mean Platelet Volume 7.3 Neutrophils (%) (Auto) 61.5 Lymphocytes (%) (Auto) 28.1 Monocytes (%) (Auto) 7.2 Eosinophils (%) (Auto) 1.7 Basophils (%) (Auto) 1.5 Neutrophils # (Auto) 8.0 Lymphocytes # (Auto) 3.7 Monocytes # (Auto) 0.9 Eosinophils # (Auto) 0.2 Basophils # (Auto) 0.2 CBC Comment DIFF FINAL Differential Comment Blood Urea Nitrogen 13 Creatinine 1.50 Random Glucose 244 Total Protein 9.2 Albumin 3.7 Calcium Level 10.3 Alkaline Phosphatase 198 Aspartate Amino Transf (AST/SGOT) 16 Alanine Aminotransferase (ALT/SGPT) 42 Total Bilirubin 0.3 Sodium Level 134 Potassium Level 4.1 Chloride Level 95 Carbon Dioxide Level 25.0 Anion Gap 14 Estimat Glomerular Filtration Rate 59 Radiology Last 48 hours Impressions Abdomen MRI 11/16/16 0000 Signed Impressions: Service Date/Time: October 15:34 - CONCLUSION: Large heterogeneously enhancing left adrenal mass again seen unchanged from recent CT. 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 Pheochromocytoma would be less likely with this appearance. Willie Lewis MD Cardiovascular: Regular Lungs: Clear Abdomen: Non-distended, Non-tender Extremities: No edema A/P Assessment and Plan 56 year old male with adrenal mass; urine labs consistent with pheochromocytoma -Started prazosin -Will also need to be started on beta sofy in about two weeks -MIBG scan planned for [place] -Diet as tolerated -General Surgery will follow peripherally over the weekend Attending Statement The exam, history, and the medical decision-making described in the above note were completed with the assistance of the mid-level provider. I reviewed and agree with the findings presented. I attest that I had a rjst-va-woew encounter with the patient on the same day, and personally performed and documented my assessment and findings in the medical record. Physical Exam: Abdomen soft, non-tender, no rebound tenderness or guarding long d/w patient about diagnosis and management of pheochromocytoma, he would like to undergo outpatient alpha blockade followed by surgery Nicky Monroe Nov 24, 2016 18:30 Jackson Joseph MD Dec 08, 2016 16:23
[2016-11-24] MEDS: PRAZOSIN HCL 2 MG CAP PO SCH (23:02)
[2016-11-25] VITALS: BP 126/63; PULSE 101; RESP 16; TEMP 97.4; O2SAT 100
[2016-11-25] MEDS: ACETAMINOPHEN/HYDROcodone 325 MG/7.5 MG TAB PO PRN ×4 (03:11→18:10)
[2016-11-25 04:00] VITALS: BP 114/63; PULSE 84; RESP 18; TEMP 97.3; O2SAT 97
[2016-11-25 08:00] VITALS: BP 136/66; PULSE 82; RESP 18; TEMP 97.8; O2SAT 97
[2016-11-25] MEDS: SODIUM CHLORIDE 0.9% FLUSH 10 ML FLUSH IV FLUSH SCH ×2 (08:03→20:20)
[2016-11-25] MEDS: PRAZOSIN HCL 2 MG CAP PO SCH ×2 (10:52→20:20)
[2016-11-25 12:00] VITALS: BP 122/65; PULSE 99; RESP 18; TEMP 97; O2SAT 98
--- NOTE | 2016-11-25 13:06 | HHI.PR ---
Subjective Remarks The patient wanted two grill cheese sandwiches today and was upset that he could only get one. He says his body is getting used to the new blood pressure medications. He has no acute complaints. Discussed with nursing. Objective Vitals Vital Signs Date Time Temp Pulse Resp B/P (MAP) Pulse Ox O2 Delivery O2 Flow Rate FiO2 11/25/16 08:00 97.8 82 18 136/66 (89) 97 11/25/16 04:11 16 11/25/16 04:00 97.3 84 18 114/63 (80) 97 11/25/16 00:00 97.4 101 16 126/63 (84) 100 11/24/16 20:00 97.5 104 17 150/75 (100) 98 11/24/16 16:00 96.4 109 16 133/60 (84) 99 I/O 11/24/16 11/24/16 11/24/16 11/25/16 11/25/16 11/25/16 06:59 14:59 22:59 06:59 14:59 22:59 Intake Total 240 ml 1460 ml Balance 240 ml 1460 ml Intake Oral 240 ml 1460 ml # Voids 1 9 Result Diagram: 11/24/16 1554 11/24/16 1554 Imaging Last Impressions Abdomen MRI 11/16/16 0000 Signed Impressions: Service Date/Time: October 15:34 - CONCLUSION: Large heterogeneously enhancing left adrenal mass again seen unchanged from recent CT. 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 Pheochromocytoma would be less likely with this appearance. Willie Lewis MD Chest CT 11/15/16 0000 Signed Impressions: Service Date/Time: Tuesday, November 15, 2016 13:57 - CONCLUSION: There are no suspicious lung lesions. Norman Mchugh MD FACR Chest X-Ray 11/14/16 1108 Signed Impressions: Service Date/Time: Monday, November 14, 2016 11:29 - CONCLUSION: No acute disease. Hood Schaefer MD Abdomen/Pelvis CT 11/14/16 0000 Signed Impressions: Service Date/Time: Monday, November 14, 2016 13:22 - CONCLUSION: 1. Increase in size of heterogeneously enhancing left adrenal mass. Left adrenal carcinoma can have this appearance or other entities such as pheochromocytoma. 2. Atherosclerosis. Hood Schaefer MD Objective Remarks GENERAL: This is a well-nourished, well-developed patient, in no apparent distress. SKIN: Warm and dry. HEENT: Normocephalic. Pupils equal round and reactive. Nose without bleeding. Airway patent. NECK: Trachea midline. No JVD. Supple. CARDIOVASCULAR: Tachycardic without murmurs, gallops or rubs. RESPIRATORY: Clear to auscultation. Breath sounds equal bilaterally. No wheezes , rales or rhonchi. GASTROINTESTINAL: Abdomen soft, nondistended. Bowel Sounds normoactive x4. Nontender. MUSCULOSKELETAL: Extremities without clubbing, cyanosis, or edema. NEUROLOGICAL: Awake and alert. Oriented to time, place, person. No focal neuro deficit. Moves all extremities. Normal speech. PSYCH: Mood and affect appropriate. Medications and IVs Current Medications Medications (Trade) Dose Ordered Sig/Yordan Route Start Time Stop Time Status Last Admin (NS Flush) 2 ml UNSCH PRN IV FLUSH 11/14/16 15:00 (NS Flush) 2 ml BID IV FLUSH 11/14/16 21:00 11/25/16 08:03 (Tylenol) 650 mg Q4H PRN PO 11/14/16 15:00 (Zofran Inj) 4 mg Q6H PRN IVP 11/14/16 15:00 11/14/16 21:02 (Tylenol) 650 mg Q6H PRN PO 11/14/16 15:00 ([place] 5-325 Mg) 1 tab Q4H PRN PO 11/14/16 15:00 11/23/16 22:14 ([place] 7.5-325 Mg) 1 tab Q4H PRN PO 11/14/16 15:00 11/25/16 10:53 (Narcan Inj) 0.4 mg UNSCH PRN IV PUSH 11/14/16 15:00 (Milk Of Magnesia Liq) 30 ml Q12H PRN PO 11/14/16 15:00 11/21/16 20:56 (Senokot) 17.2 mg Q12H PRN PO 11/14/16 15:00 11/14/16 21:02 (Dulcolax Supp) 10 mg DAILY PRN RECTAL 11/14/16 15:00 (Lactulose Liq) 30 ml DAILY PRN PO 11/14/16 15:00 (Catapres) 0.1 mg Q6H PRN PO 11/17/16 09:15 11/23/16 01:46 (Minipress) 2 mg Q12HR PO 11/24/16 21:00 11/25/16 10:52 A/P Problem List: (1) Anemia ICD Code: D64.9 - Anemia, unspecified Status: Acute (2) Abdominal pain ICD Code: R10.9 - Unspecified abdominal pain Status: Acute (3) Adrenal mass, left ICD Code: E27.9 - Disorder of adrenal gland, unspecified Status: Acute (4) Thrombocytosis ICD Code: D47.3 - Essential (hemorrhagic) thrombocythemia (5) Hyperglycemia ICD Code: R73.9 - Hyperglycemia, unspecified Assessment and Plan Mr. Ferrer is a 56-year-old male patient with a known medical history of hypertension and tobacco use who presented to the ED with complaints of left upper quadrant abdominal pain. Adrenal carcinoma, pheochromocytoma Left upper quadrant abdominal pain suspect secondary to left adrenal mass Anemia with elevated RDW, iron deficiency anemia Thrombocytosis, acute Elevated CPK and CK-MB - Abdomen/pelvis CT reviewed showing increase in size of heterogeneously enhancing left adrenal mass. - CXR reviewed showing no acute disease. - EKG reviewed showing NSR, no arrhythmias noted, no ST segment changes. - Occult stool negative. - 24 hr urine metanephrines and catecholamines ordered by oncology. 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 - Gen. surgery consulted and recommendations appreciated. - Status post EGD and colonoscopy: Gastritis; Polyps and diverticulosis were found and biopsied. Await pathology, continue PPI. - Consulted for CT-guided biopsy of adrenal mass. - Plan for MIGB scan by hem/onc Sunday. Pain management continues. - 24hr urine showed Normetanephrine 60326, total metanephrine 24h 56985. Hypertension: BP 140s-160s . Clonidine PRN Tobacco abuse Cocaine abuse - Counselled on cessation. Renal insufficiency Possibly prerenal. - Trial of IV fluids and monitor. Hyperglycemia Possibly a stress reaction or secondary to underlying condition. - Check a hemoglobin A1c. Leukocytosis May be a stress reaction. Afebrile. - follow CBC. DVT prophylaxis: SCDs Problem Qualifiers (1) Anemia: Qualified Codes: D50.0 - Iron deficiency anemia secondary to blood loss ( chronic) (2) Abdominal pain: Qualified Codes: R10.12 - Left upper quadrant pain Deniz Torres DO Nov 25, 2016 13:06
[2016-11-25] MEDS ORDERED: SODIUM CHLOR 0.9% 1000 ML INJ 1,000 ML IV SCH (13:45)
[2016-11-25 14:14] LABS: AUTOMATED NEUTROPHIL # 5.4 TH/MM3 (1.8-7.7); BASOPHIL # 0.1 TH/MM3 (0-0.2); BASOPHIL % 1.1 % (0.0-2.0); EOSINOPHIL # 0.2 TH/MM3 (0-0.4); EOSINOPHIL % 2.3 % (0.0-4.0); HEMATOCRIT 28.6 % (39.0-51.0); HEMO FLAGS DIFF FINAL; LYMPHOCYTE # 2.1 TH/MM3 (1.0-4.8); MEAN CELL VOLUME 81.9 FL (80.0-100.0); MEAN CORPUSCULAR HEMOGLOBIN 25.3 PG (27.0-34.0); MEAN CORPUSCULAR HGB CONC 30.9 % (32.0-36.0); MONO % 8.1 % (0.0-8.0); NEUT % 63.5 % (16.0-70.0); PLATELET COUNT 592 TH/MM3 (150-450); RED CELL DISTRIBUTION WIDTH 17.6 % (11.6-17.2); WHITE BLOOD COUNT 8.5 TH/MM3 (4.0-11.0)
[2016-11-25 14:47] LABS: ALKALINE PHOSPHATASE 164 U/L (45-117); ALT (GPT) 33 U/L (12-78); ANION GAP 7 MEQ/L (5-15); AST (GOT) 14 U/L (15-37); BICARBONATE 28.2 MEQ/L (21.0-32.0); BLOOD UREA NITROGEN 12 MG/DL (7-18); CHLORIDE 102 MEQ/L (98-107); GLOMERULAR FILTRATION RATE 92 ML/MIN (>89); SODIUM (NA) 137 MEQ/L (136-145); TOTAL BILIRUBIN ADULT 0.2 MG/DL (0.2-1.0)
[2016-11-25 16:00] VITALS: BP 122/65; PULSE 99; RESP 18; TEMP 97.5; O2SAT 98
--- NOTE | 2016-11-25 16:44 | HHI.PR ---
Subjective Subjective Notes Resting comfortably Objective Vitals/I&O Vital Signs Date Time Temp Pulse Resp B/P (MAP) Pulse Ox O2 Delivery O2 Flow Rate FiO2 11/25/16 12:00 97.0 99 18 122/65 (84) 98 Labs Laboratory Tests Test 11/25/16 13:49 White Blood Count 8.5 Red Blood Count 3.50 Hemoglobin 8.9 Hematocrit 28.6 Mean Corpuscular Volume 81.9 Mean Corpuscular Hemoglobin 25.3 Mean Corpuscular Hemoglobin Concent 30.9 Red Cell Distribution Width 17.6 Platelet Count 592 Mean Platelet Volume 7.2 Neutrophils (%) (Auto) 63.5 Lymphocytes (%) (Auto) 25.0 Monocytes (%) (Auto) 8.1 Eosinophils (%) (Auto) 2.3 Basophils (%) (Auto) 1.1 Neutrophils # (Auto) 5.4 Lymphocytes # (Auto) 2.1 Monocytes # (Auto) 0.7 Eosinophils # (Auto) 0.2 Basophils # (Auto) 0.1 CBC Comment DIFF FINAL Differential Comment Blood Urea Nitrogen 12 Creatinine 1.02 Random Glucose 88 Total Protein 7.7 Albumin 3.1 Calcium Level 9.6 Alkaline Phosphatase 164 Aspartate Amino Transf (AST/SGOT) 14 Alanine Aminotransferase (ALT/SGPT) 33 Total Bilirubin 0.2 Sodium Level 137 Potassium Level 4.0 Chloride Level 102 Carbon Dioxide Level 28.2 Anion Gap 7 Estimat Glomerular Filtration Rate 92 Radiology Last 48 hours Impressions Abdomen MRI 11/16/16 0000 Signed Impressions: Service Date/Time: October 15:34 - CONCLUSION: Large heterogeneously enhancing left adrenal mass again seen unchanged from recent CT. 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 Pheochromocytoma would be less likely with this appearance. Willie Lewis MD Abdomen: Non-distended, Non-tender A/P Assessment and Plan Assessment and Plan 56 year old male with adrenal mass; urine labs consistent with pheochromocytoma -Started prazosin -Will also need to be started on beta sofy in about two weeks -MIBG scan planned for Sunday -Diet as tolerated -General Surgery will follow peripherally over the weekend Deniz Soni MD Nov 25, 2016 16:44
[2016-11-25 20:00] VITALS: BP 125/58; PULSE 110; RESP 16; TEMP 96.8; O2SAT 95
[2016-11-26] VITALS: BP 136/82; PULSE 108; RESP 18; TEMP 97.8; O2SAT 98
[2016-11-26 04:00] VITALS: BP 144/69; PULSE 90; RESP 19; TEMP 96.4; O2SAT 99
[2016-11-26 08:00] VITALS: BP 138/70; PULSE 81; RESP 18; TEMP 97.2; O2SAT 100
[2016-11-26] MEDS: SODIUM CHLORIDE 0.9% FLUSH 10 ML FLUSH IV FLUSH SCH ×2 (08:00→22:32)
[2016-11-26] MEDS: PRAZOSIN HCL 2 MG CAP PO SCH ×2 (11:00→22:31)
[2016-11-26 11:58] LABS: HEMOGLOBIN A1a 1.5 %; HEMOGLOBIN A1b 1.3 %; HEMOGLOBIN Ao 86.3 %; HEMOGLOBIN LA1C 1.2 %; HEMOGLOBIN P3 3.4 %
[2016-11-26 12:00] VITALS: BP 149/86; PULSE 86; RESP 18; TEMP 97.1; O2SAT 100
--- NOTE | 2016-11-26 14:08 | HHI.PR ---
Subjective Remarks The patient was bored. 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 He had palpitations earlier but that has resolved. Discussed with nursing. Objective Vitals Vital Signs Date Time Temp Pulse Resp B/P (MAP) Pulse Ox O2 Delivery O2 Flow Rate FiO2 11/26/16 12:00 97.1 86 18 149/86 (107) 100 11/26/16 08:00 97.2 81 18 138/70 (92) 100 Manual Cuff/Auscultation 11/26/16 04:00 96.4 90 19 144/69 (94) 99 11/26/16 00:00 97.8 108 18 136/82 (100) 98 11/25/16 20:00 96.8 110 16 125/58 (80) 95 11/25/16 16:00 97.5 99 18 122/65 (84) 98 I/O 11/25/16 11/25/16 11/25/16 11/26/16 11/26/16 11/26/16 07:00 15:00 23:00 07:00 15:00 23:00 Intake Total 2056 ml 480 ml Balance 2056 ml 480 ml Intake Oral 1560 ml 480 ml IV Total 496 ml # Voids 5 3 # Bowel Movements 1 Result Diagram: 11/25/16 1349 11/25/16 1349 Imaging Last Impressions Abdomen MRI 11/16/16 0000 Signed Impressions: Service Date/Time: October 15:34 - CONCLUSION: Large heterogeneously enhancing left adrenal mass again seen unchanged from recent CT. 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 Pheochromocytoma would be less likely with this appearance. Willie Lewis MD Chest CT 11/15/16 0000 Signed Impressions: Service Date/Time: Tuesday, November 15, 2016 13:57 - CONCLUSION: There are no suspicious lung lesions. Norman Mchugh MD FACR Chest X-Ray 11/14/16 1108 Signed Impressions: Service Date/Time: Monday, November 14, 2016 11:29 - CONCLUSION: No acute disease. Hood Schaefer MD Abdomen/Pelvis CT 11/14/16 0000 Signed Impressions: Service Date/Time: Monday, November 14, 2016 13:22 - CONCLUSION: 1. Increase in size of heterogeneously enhancing left adrenal mass. Left adrenal carcinoma can have this appearance or other entities such as pheochromocytoma. 2. Atherosclerosis. Hood Schaefer MD Objective Remarks GENERAL: This is a well-nourished, well-developed patient, in no apparent distress. SKIN: Warm and dry. HEENT: Normocephalic. Pupils equal round and reactive. Nose without bleeding. Airway patent. NECK: Trachea midline. No JVD. Supple. CARDIOVASCULAR: Tachycardic without murmurs, gallops or rubs. RESPIRATORY: Clear to auscultation. Breath sounds equal bilaterally. No wheezes , rales or rhonchi. GASTROINTESTINAL: Abdomen soft, nondistended. Bowel Sounds normoactive x4. Nontender. MUSCULOSKELETAL: Extremities without clubbing, cyanosis, or edema. NEUROLOGICAL: Awake and alert. Oriented to time, place, person. No focal neuro deficit. Moves all extremities. Normal speech. PSYCH: Mood and affect appropriate. Medications and IVs Current Medications Medications (Trade) Dose Ordered Sig/Yordan Route Start Time Stop Time Status Last Admin (NS Flush) 2 ml UNSCH PRN IV FLUSH 11/14/16 15:00 (NS Flush) 2 ml BID IV FLUSH 11/14/16 21:00 11/26/16 08:00 (Tylenol) 650 mg Q4H PRN PO 11/14/16 15:00 (Zofran Inj) 4 mg Q6H PRN IVP 11/14/16 15:00 11/14/16 21:02 (Tylenol) 650 mg Q6H PRN PO 11/14/16 15:00 ([place] 5-325 Mg) 1 tab Q4H PRN PO 11/14/16 15:00 11/23/16 22:14 ([place] 7.5-325 Mg) 1 tab Q4H PRN PO 11/14/16 15:00 11/25/16 18:10 (Narcan Inj) 0.4 mg UNSCH PRN IV PUSH 11/14/16 15:00 (Milk Of Magnesia Liq) 30 ml Q12H PRN PO 11/14/16 15:00 11/21/16 20:56 (Senokot) 17.2 mg Q12H PRN PO 11/14/16 15:00 11/14/16 21:02 (Dulcolax Supp) 10 mg DAILY PRN RECTAL 11/14/16 15:00 (Lactulose Liq) 30 ml DAILY PRN PO 11/14/16 15:00 (Catapres) 0.1 mg Q6H PRN PO 11/17/16 09:15 11/23/16 01:46 (Minipress) 2 mg Q12HR PO 11/24/16 21:00 11/26/16 11:00 A/P Problem List: (1) Anemia ICD Code: D64.9 - Anemia, unspecified Status: Acute (2) Abdominal pain ICD Code: R10.9 - Unspecified abdominal pain Status: Acute (3) Adrenal mass, left ICD Code: E27.9 - Disorder of adrenal gland, unspecified Status: Acute (4) Thrombocytosis ICD Code: D47.3 - Essential (hemorrhagic) thrombocythemia (5) Hyperglycemia ICD Code: R73.9 - Hyperglycemia, unspecified Assessment and Plan Mr. Ferrer is a 56-year-old male patient with a known medical history of hypertension and tobacco use who presented to the ED with complaints of left upper quadrant abdominal pain. Adrenal carcinoma, pheochromocytoma Left upper quadrant abdominal pain suspect secondary to left adrenal mass Anemia with elevated RDW, iron deficiency anemia Thrombocytosis, acute Elevated CPK and CK-MB - Abdomen/pelvis CT reviewed showing increase in size of heterogeneously enhancing left adrenal mass. - CXR reviewed showing no acute disease. - EKG reviewed showing NSR, no arrhythmias noted, no ST segment changes. - Occult stool negative. - MRI of abdomen favors adrenal cortical carcinoma. - Gen. surgery consulted and recommendations appreciated. - Status post EGD and colonoscopy: Gastritis; Polyps and diverticulosis were found and biopsied. Await pathology, continue PPI. - Consulted for CT-guided biopsy of adrenal mass. - Plan for MIGB scan by hem/onc Sunday. Pain management continues. - 24hr urine showed Normetanephrine 16519, total metanephrine 24h 10735. - continue prazosin. Hypertension Well-controlled - Continue prazosin. - Clonidine PRN. Tobacco abuse Cocaine abuse - Counselled on cessation. Renal insufficiency Possibly prerenal. - Trial of IV fluids and monitor. Resolved. Hyperglycemia Possibly a stress reaction or secondary to underlying condition. - Check a hemoglobin A1c. 6%. Leukocytosis May be a stress reaction. Afebrile. - follow CBC. Resolved. DVT prophylaxis: SCDs Problem Qualifiers (1) Anemia: Qualified Codes: D50.0 - Iron deficiency anemia secondary to blood loss ( chronic) (2) Abdominal pain: Qualified Codes: R10.12 - Left upper quadrant pain Deniz Torres DO Nov 26, 2016 14:08
[2016-11-26] MEDS: ACETAMINOPHEN/HYDROcodone 325 MG/7.5 MG TAB PO PRN ×2 (15:13→22:31)
[2016-11-26 16:00] VITALS: BP 135/77; PULSE 88; RESP 16; TEMP 98.3; O2SAT 99
[2016-11-26 20:00] VITALS: BP 158/82; PULSE 81; RESP 18; TEMP 97.5; O2SAT 98
[2016-11-27] VITALS (7 sets, daily range): BP systolic 127–153; BP diastolic 71–94; PULSE 87–114; RESP 17–20; TEMP 96.2–98.4; O2SAT 96–99
[2016-11-27] MEDS: SODIUM CHLORIDE 0.9% FLUSH 10 ML FLUSH IV FLUSH SCH ×2 (09:24→20:39)
[2016-11-27] MEDS: PRAZOSIN HCL 2 MG CAP PO SCH ×2 (09:25→20:37)
[2016-11-27] MEDS: ACETAMINOPHEN/HYDROcodone 325 MG/7.5 MG TAB PO PRN (09:25)
--- NOTE | 2016-11-27 09:26 | HHI.PR ---
Subjective Remarks The patient was ambulating. He said he was trying to get his exercises in before he takes the pills because sometimes that makes him dizzy. He denied any acute complaints. Hoping to get out of the hospital soon. He had questions about wearing masks at work as he says he is exposed to toxic chemicals. Objective Vitals Vital Signs Date Time Temp Pulse Resp B/P (MAP) Pulse Ox O2 Delivery O2 Flow Rate FiO2 11/27/16 04:00 97.4 99 18 139/82 (101) 99 11/27/16 00:05 16 11/27/16 00:00 98.4 95 17 128/71 (90) 96 11/26/16 20:00 97.5 81 18 158/82 (107) 98 11/26/16 16:00 98.3 88 16 135/77 (96) 99 11/26/16 12:00 97.1 86 18 149/86 (107) 100 I/O 11/26/16 11/26/16 11/26/16 11/27/16 11/27/16 11/27/16 07:00 15:00 23:00 07:00 15:00 23:00 Intake Total 480 ml 1800 ml 480 ml Balance 480 ml 1800 ml 480 ml Intake Oral 480 ml 1800 ml 480 ml # Voids 3 7 3 # Bowel Movements 2 Result Diagram: 11/25/16 1349 11/25/16 1349 Imaging Last Impressions Abdomen MRI 11/16/16 0000 Signed Impressions: Service Date/Time: October 15:34 - CONCLUSION: Large heterogeneously enhancing left adrenal mass again seen unchanged from recent CT. 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 Pheochromocytoma would be less likely with this appearance. Willie Lewis MD Chest CT 11/15/16 0000 Signed Impressions: Service Date/Time: Tuesday, November 15, 2016 13:57 - CONCLUSION: There are no suspicious lung lesions. Norman Mchugh MD FACR Chest X-Ray 11/14/16 1108 Signed Impressions: Service Date/Time: Monday, November 14, 2016 11:29 - CONCLUSION: No acute disease. Hood Schaefer MD Abdomen/Pelvis CT 11/14/16 0000 Signed Impressions: Service Date/Time: Monday, November 14, 2016 13:22 - CONCLUSION: 1. Increase in size of heterogeneously enhancing left adrenal mass. Left adrenal carcinoma can have this appearance or other entities such as pheochromocytoma. 2. Atherosclerosis. Hood Schaefer MD Objective Remarks GENERAL: This is a well-nourished, well-developed patient, in no apparent distress. SKIN: Warm and dry. HEENT: Normocephalic. Pupils equal round and reactive. Nose without bleeding. Airway patent. NECK: Trachea midline. No JVD. Supple. CARDIOVASCULAR: Tachycardic without murmurs, gallops or rubs. RESPIRATORY: Clear to auscultation. Breath sounds equal bilaterally. No wheezes , rales or rhonchi. GASTROINTESTINAL: Abdomen soft, nondistended. Bowel Sounds normoactive x4. Nontender. MUSCULOSKELETAL: Extremities without clubbing, cyanosis, or edema. NEUROLOGICAL: Awake and alert. Oriented to time, place, person. No focal neuro deficit. Moves all extremities. Normal speech. PSYCH: Mood and affect appropriate. Medications and IVs Current Medications Medications (Trade) Dose Ordered Sig/Yordan Route Start Time Stop Time Status Last Admin (NS Flush) 2 ml UNSCH PRN IV FLUSH 11/14/16 15:00 (NS Flush) 2 ml BID IV FLUSH 11/14/16 21:00 11/26/16 22:32 (Tylenol) 650 mg Q4H PRN PO 11/14/16 15:00 (Zofran Inj) 4 mg Q6H PRN IVP 11/14/16 15:00 11/14/16 21:02 (Tylenol) 650 mg Q6H PRN PO 11/14/16 15:00 ([place] 5-325 Mg) 1 tab Q4H PRN PO 11/14/16 15:00 11/23/16 22:14 ([place] 7.5-325 Mg) 1 tab Q4H PRN PO 11/14/16 15:00 11/26/16 22:31 (Narcan Inj) 0.4 mg UNSCH PRN IV PUSH 11/14/16 15:00 (Milk Of Magnesia Liq) 30 ml Q12H PRN PO 11/14/16 15:00 11/21/16 20:56 (Senokot) 17.2 mg Q12H PRN PO 11/14/16 15:00 11/14/16 21:02 (Dulcolax Supp) 10 mg DAILY PRN RECTAL 11/14/16 15:00 (Lactulose Liq) 30 ml DAILY PRN PO 11/14/16 15:00 (Catapres) 0.1 mg Q6H PRN PO 11/17/16 09:15 11/23/16 01:46 (Minipress) 2 mg Q12HR PO 11/24/16 21:00 11/26/16 22:31 A/P Problem List: (1) Anemia ICD Code: D64.9 - Anemia, unspecified Status: Acute (2) Abdominal pain ICD Code: R10.9 - Unspecified abdominal pain Status: Acute (3) Adrenal mass, left ICD Code: E27.9 - Disorder of adrenal gland, unspecified Status: Acute (4) Thrombocytosis ICD Code: D47.3 - Essential (hemorrhagic) thrombocythemia (5) Hyperglycemia ICD Code: R73.9 - Hyperglycemia, unspecified Assessment and Plan Mr. Ferrer is a 56-year-old male patient with a known medical history of hypertension and tobacco use who presented to the ED with complaints of left upper quadrant abdominal pain. Adrenal carcinoma, pheochromocytoma Left upper quadrant abdominal pain suspect secondary to left adrenal mass Anemia with elevated RDW, iron deficiency anemia Thrombocytosis, acute Elevated CPK and CK-MB - Abdomen/pelvis CT reviewed showing increase in size of heterogeneously enhancing left adrenal mass. - CXR reviewed showing no acute disease. - EKG reviewed showing NSR, no arrhythmias noted, no ST segment changes. - Occult stool negative. - MRI of abdomen favors adrenal cortical carcinoma. - Gen. surgery consulted and recommendations appreciated. - Status post EGD and colonoscopy: Gastritis; Polyps and diverticulosis were found and biopsied. Await pathology, continue PPI. - Consulted for CT-guided biopsy of adrenal mass. - Plan for MIGB scan by hem/onc Sunday. - 24hr urine showed Normetanephrine 24330, total metanephrine 24h 78304. - continue prazosin. Start beta blockers in a couple weeks per surgery. Hypertension Well-controlled - Continue prazosin. - Clonidine PRN. Iron deficiency anemia GI and hematology are following. - We will likely discharge on ferrous sulfate. - Continue PPI. Tobacco abuse Cocaine abuse - Counselled on cessation. Renal insufficiency Possibly prerenal. - Trial of IV fluids and monitor. Resolved. Hyperglycemia Possibly a stress reaction or secondary to underlying condition. - Check a hemoglobin A1c. 6%. Leukocytosis May be a stress reaction. Afebrile. - follow CBC. Resolved. DVT prophylaxis: SCDs Discharge Planning Awaiting MIBG scan Sunday Problem Qualifiers (1) Anemia: Qualified Codes: D50.0 - Iron deficiency anemia secondary to blood loss ( chronic) (2) Abdominal pain: Qualified Codes: R10.12 - Left upper quadrant pain Deniz Torres DO Nov 27, 2016 09:26
--- NOTE | 2016-11-27 11:56 | PD.ONC.PN ---
Subjective Subjective Remarks Afebrile overnight. reporting pain at "site of mass." pain is intermittent and improved with oxycodone. Objective Data Date Time Temp Pulse Resp B/P (MAP) Pulse Ox O2 Delivery O2 Flow Rate FiO2 11/27/16 08:00 96.2 110 20 130/81 (97) 99 11/27/16 04:00 97.4 99 18 139/82 (101) 99 11/27/16 00:05 16 11/27/16 00:00 98.4 95 17 128/71 (90) 96 11/26/16 20:00 97.5 81 18 158/82 (107) 98 11/26/16 16:00 98.3 88 16 135/77 (96) 99 11/26/16 12:00 97.1 86 18 149/86 (107) 100 11/27/16 11/27/16 11/27/16 07:00 15:00 23:00 Intake Total 480 ml Balance 480 ml Result Diagram: 11/25/16 1349 11/25/16 1349 Administered Medications Medications (Trade) Dose Ordered Sig/Yordan Route PRN Reason Start Time Stop Time Status Last Admin Dose Admin Sodium Chloride (NS Flush) 2 ml BID IV FLUSH 11/14/16 21:00 11/27/16 09:24 Ondansetron HCl (Zofran Inj) 4 mg Q6H PRN IVP NAUSEA OR VOMITING 11/14/16 15:00 11/14/16 21:02 Acetaminophen/ Hydrocodone Bitart ([place] 5-325 Mg) 1 tab Q4H PRN PO PAIN SCALE 3 TO 5 11/14/16 15:00 11/23/16 22:14 Magnesium Hydroxide (Milk Of Magnesia Liq) 30 ml Q12H PRN PO MILD - MODERATE CONSTIPATION 11/14/16 15:00 11/21/16 20:56 Sennosides (Senokot) 17.2 mg Q12H PRN PO MODERATE - SEVERE CONSTIPATION 11/14/16 15:00 11/14/16 21:02 Clonidine (Catapres) 0.1 mg Q6H PRN PO SYS BP GREATER THAN 160 MMHG 11/17/16 09:15 11/23/16 01:46 Prazosin HCl (Minipress) 2 mg Q12HR PO 11/24/16 21:00 11/27/16 09:25 Objective Remarks GENERAL: Middle aged male upright in room in nad. SKIN: Warm and dry. HEAD: Normocephalic. EYES: No injection or drainage. NECK: Supple, trachea midline. CARDIOVASCULAR: Regular rate and rhythm RESPIRATORY: Breath sounds equal bilaterally. No accessory muscle use. GASTROINTESTINAL: Abdomen soft, non-tender, nondistended. EXTREMITIES: No cyanosis NEUROLOGICAL: awake and alert, normal speech. moving extremities. Assessment/Plan Problem List: (1) Adrenal mass, left ICD Codes: E27.9 - Disorder of adrenal gland, unspecified Status: Acute Plan: -- MRI indicates pheochromocytoma less likely -- 24 hours urine shows elevated norepinephrines and metanephrines -- CT chest shows no obvious mass -- Colonoscopy,11/18/16 showed Colon polyps, path + adenomatous polyps. Diverticulosis Assessment 56 y/o male admitted with nausea and abdominal pain found to have a L adrenal lesion. Plan 1. MIBG scan tomorrow 2. continue Prazosin 3. supportive care Attending Statement The exam, history, and the medical decision-making described in the above note were completed with the assistance of the mid-level provider. I reviewed and agree with the findings presented. I attest that I had a [id number] encounter with the patient on the same day, and personally performed and documented my assessment and findings in the medical record. No abdominal pain. On alpha sofy. Await MIBG scan tomorrow. Await surgical resection of left adrenal mass/pheochromocytoma. Chana Dee Nov 27, 2016 11:56 Rohit Duong MD Nov 27, 2016 14:40
[2016-11-27] MEDS: ACETAMINOPHEN/HYDROcodone 325 MG/10 MG TAB PO PRN (18:24)
[2016-11-27] MEDS: CALCIUM CARBONATE 500 MG CHEWABLE TAB CHEW PRN (20:37)
[2016-11-28] VITALS: BP 140/78; PULSE 102; RESP 17; TEMP 97.7; O2SAT 98
[2016-11-28 04:00] VITALS: BP 140/76; PULSE 72; RESP 17; TEMP 98; O2SAT 98
--- NOTE | 2016-11-28 07:51 | PD.ONC.PN ---
Subjective Subjective Remarks Afebrile overnight. Patient resting in bed in nad. No complaints. Ready for MIBG scan today. Objective Data Date Time Temp Pulse Resp B/P (MAP) Pulse Ox O2 Delivery O2 Flow Rate FiO2 11/28/16 04:00 98.0 72 17 140/76 (97) 98 11/28/16 00:00 97.7 102 17 140/78 (98) 98 11/27/16 20:41 100 18 153/94 (113) 99 11/27/16 20:00 97.5 11/27/16 16:00 96.4 114 20 127/74 (91) 96 11/27/16 12:00 97.1 87 20 136/76 (96) 97 11/27/16 08:00 96.2 110 20 130/81 (97) 99 11/28/16 11/28/16 11/28/16 07:00 15:00 23:00 Intake Total 480 ml Balance 480 ml Result Diagram: 11/25/16 1349 11/25/16 1349 Administered Medications Medications (Trade) Dose Ordered Sig/Yordan Route PRN Reason Start Time Stop Time Status Last Admin Dose Admin Sodium Chloride (NS Flush) 2 ml BID IV FLUSH 11/14/16 21:00 11/27/16 20:39 Ondansetron HCl (Zofran Inj) 4 mg Q6H PRN IVP NAUSEA OR VOMITING 11/14/16 15:00 11/14/16 21:02 Acetaminophen/ Hydrocodone Bitart ([place] 5-325 Mg) 1 tab Q4H PRN PO PAIN SCALE 3 TO 5 11/14/16 15:00 11/23/16 22:14 Magnesium Hydroxide (Milk Of Magnesia Liq) 30 ml Q12H PRN PO MILD - MODERATE CONSTIPATION 11/14/16 15:00 11/21/16 20:56 Sennosides (Senokot) 17.2 mg Q12H PRN PO MODERATE - SEVERE CONSTIPATION 11/14/16 15:00 11/14/16 21:02 Clonidine (Catapres) 0.1 mg Q6H PRN PO SYS BP GREATER THAN 160 MMHG 11/17/16 09:15 11/23/16 01:46 Prazosin HCl (Minipress) 2 mg Q12HR PO 11/24/16 21:00 11/27/16 20:37 Acetaminophen/ Hydrocodone Bitart ([place] 10-325 Mg) 1 tab Q4H PRN PO pain 6-10 11/27/16 10:45 11/27/16 18:24 Calcium Carbonate (Tums Chew) 500 mg Q4H PRN CHEW indigestion 11/27/16 20:30 11/27/16 20:37 Objective Remarks GENERAL: Middle aged male sitting up in bed in nad. SKIN: Warm and dry. HEAD: Normocephalic. EYES: No injection or drainage. NECK: Supple, trachea midline. CARDIOVASCULAR: Regular rate and rhythm RESPIRATORY: Breath sounds equal bilaterally. No accessory muscle use. GASTROINTESTINAL: Abdomen soft, non-tender, nondistended. EXTREMITIES: No cyanosis NEUROLOGICAL: aox3. normal speech. moving all extremities. Assessment/Plan Problem List: (1) Adrenal mass, left ICD Codes: E27.9 - Disorder of adrenal gland, unspecified Status: Acute Plan: -- MRI indicates pheochromocytoma less likely -- 24 hours urine shows elevated norepinephrines and metanephrines -- CT chest shows no obvious mass -- Colonoscopy,11/18/16 showed Colon polyps, path + adenomatous polyps. Diverticulosis Assessment 56 y/o male admitted with nausea and abdominal pain found to have a L adrenal lesion. Plan 1. MIBG scan today 2. will ask case management to set up appointment with surgeon prior to patients discharge 3. continue Prazosin Attending Statement The exam, history, and the medical decision-making described in the above note were completed with the assistance of the mid-level provider. I reviewed and agree with the findings presented. I attest that I had a [id number] encounter with the patient on the same day, and personally performed and documented my assessment and findings in the medical record. No significant abdominal pain. Await MIBG scan today. Pt will need to be set up for f/u with surgery prior to d/c. He will need f/u with surgeon to prep for surgical resection of pheochromocytoma. Chana Dee Nov 28, 2016 07:51 Rohit Duong MD Nov 28, 2016 16:32
[2016-11-28 08:00] VITALS: BP 157/83; PULSE 71; RESP 18; TEMP 98; O2SAT 98
[2016-11-28] MEDS: SODIUM CHLORIDE 0.9% FLUSH 10 ML FLUSH IV FLUSH SCH ×2 (08:18→19:42)
[2016-11-28] MEDS: PRAZOSIN HCL 2 MG CAP PO SCH (08:18)
[2016-11-28] MEDS: ACETAMINOPHEN/HYDROcodone 325 MG/10 MG TAB PO PRN ×3 (08:23→18:29)
--- NOTE | 2016-11-28 11:36 | HHI.PR ---
Subjective Subjective Notes Resting in bed Awaiting MIBG scan Objective Vitals/I&O Vital Signs Date Time Temp Pulse Resp B/P (MAP) Pulse Ox O2 Delivery O2 Flow Rate FiO2 11/28/16 08:00 98.0 71 18 157/83 (107) 98 Radiology Last 48 hours Impressions Abdomen MRI 11/16/16 0000 Signed Impressions: Service Date/Time: October 15:34 - CONCLUSION: Large heterogeneously enhancing left adrenal mass again seen unchanged from recent CT. 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 Pheochromocytoma would be less likely with this appearance. Willie Lewis MD Cardiovascular: Regular Lungs: Clear Abdomen: Non-distended, Non-tender Extremities: No edema A/P Assessment and Plan 56 year old male with adrenal mass; urine labs consistent with pheochromocytoma -Increased dose of prazosin (with parameters for holding) -Will also need to be started on beta sofy in about two weeks -MIBG scan planned for today -Diet as tolerated Nicky Monroe Nov 28, 2016 11:36
[2016-11-28 12:00] VITALS: BP 125/64; PULSE 114; RESP 16; TEMP 96.6; O2SAT 99
[2016-11-28] MEDS ORDERED: PRAZ1 PO (12:30)
[2016-11-28] MEDS ORDERED: HYDR-3583 PO (12:30)
--- NOTE | 2016-11-28 12:38 | HHI.DS ---
Discharge Summary Admission Date Nov 14, 2016 at 1:51 pm Admitting Diagnosis abdominal pain, chest pain, anemia, thrombophilia (1) Anemia ICD Code: D64.9 - Anemia, unspecified Status: Acute (2) Abdominal pain ICD Code: R10.9 - Unspecified abdominal pain Status: Acute (3) Adrenal mass, left ICD Code: E27.9 - Disorder of adrenal gland, unspecified Status: Acute (4) Thrombocytosis ICD Code: D47.3 - Essential (hemorrhagic) thrombocythemia (5) Hyperglycemia ICD Code: R73.9 - Hyperglycemia, unspecified Brief History - From Admission Mr. Ferrer is a 56-year-old male patient with a known medical history of hypertension and tobacco use who presented to the ED with complaints of left upper quadrant abdominal pain. Patient states he awoke this morning with excruciating left abdominal pain that radiated up to his left chest area. Inspiration seems to make the pain worse. Does admit to associated nausea and diaphoresis, denies any vomiting. States that this pain is similar to "muscle soreness after working out". He does state he came in a couple weeks ago with similar complaints but left against medical advice due to job regulations and commitments. Patient denies any recent change in bowels, denies any diarrhea or constipation. Denies hematochezia. Denies ever having a colonoscopy or GI workup. Denies any recent fever, chills, headache, cough shortness of breath, dizziness, lightheadedness, vision changes, diplopia or dysuria. Patient does admit to a paternal medical history significant for colon cancer. CBC/BMP: 11/25/16 1349 11/25/16 1349 Significant Findings Laboratory Tests Test 11/25/16 13:49 Red Blood Count 3.50 MIL/MM3 (4.50-5.90) Hemoglobin 8.9 GM/DL (13.0-17.0) Hematocrit 28.6 % (39.0-51.0) Mean Corpuscular Hemoglobin 25.3 PG (27.0-34.0) Mean Corpuscular Hemoglobin Concent 30.9 % (32.0-36.0) Red Cell Distribution Width 17.6 % (11.6-17.2) Platelet Count 592 TH/MM3 (150-450) Monocytes (%) (Auto) 8.1 % (0.0-8.0) Albumin 3.1 GM/DL (3.4-5.0) Alkaline Phosphatase 164 U/L (45-117) Aspartate Amino Transf (AST/SGOT) 14 U/L (15-37) Imaging Last Impressions Abdomen MRI 11/16/16 0000 Signed Impressions: Service Date/Time: October 15:34 - CONCLUSION: Large heterogeneously enhancing left adrenal mass again seen unchanged from recent CT. 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 Pheochromocytoma would be less likely with this appearance. Willie Lewis MD Chest CT 11/15/16 0000 Signed Impressions: Service Date/Time: Tuesday, November 15, 2016 13:57 - CONCLUSION: There are no suspicious lung lesions. Norman Mchugh MD FACR Chest X-Ray 11/14/16 1108 Signed Impressions: Service Date/Time: Monday, November 14, 2016 11:29 - CONCLUSION: No acute disease. Hood Schaefer MD Abdomen/Pelvis CT 11/14/16 0000 Signed Impressions: Service Date/Time: Monday, November 14, 2016 13:22 - CONCLUSION: 1. Increase in size of heterogeneously enhancing left adrenal mass. Left adrenal carcinoma can have this appearance or other entities such as pheochromocytoma. 2. Atherosclerosis. Hood Schaefer MD PE at Discharge GENERAL: This is a well-nourished, well-developed patient, in no apparent distress. SKIN: Warm and dry. HEENT: Normocephalic. Pupils equal round and reactive. Nose without bleeding. Airway patent. NECK: Trachea midline. No JVD. Supple. CARDIOVASCULAR: Tachycardic without murmurs, gallops or rubs. RESPIRATORY: Clear to auscultation. Breath sounds equal bilaterally. No wheezes , rales or rhonchi. GASTROINTESTINAL: Abdomen soft, nondistended. Bowel Sounds normoactive x4. Nontender. MUSCULOSKELETAL: Extremities without clubbing, cyanosis, or edema. NEUROLOGICAL: Awake and alert. Oriented to time, place, person. No focal neuro deficit. Moves all extremities. Normal speech. PSYCH: Mood and affect appropriate. Pt update on day of discharge Patient is doing well. He was having some left upper quadrant abdominal pain but has subsided after pain meds. He is scheduled for imaging at 3PM today after which he can be discharged. He will have to come back to nuclear medicine tomorrow morning. Patient verbalized understanding. Pt Condition on Discharge: Good Discharge Disposition: Discharge Home Discharge Time: <= 30 minutes Discharge Instructions DIET: Follow Instructions for: As Tolerated, No Restrictions Activities you can perform: Regular-No Restrictions Follow up Referrals: PCP Follow-up - 1 Week New Medications: Hydrocodone-Acetaminophen (Hydrocodone-Acetaminophen) 10-325 mg Tab 1 TAB PO Q4H PRN for pain 6-10, #20 TAB Prazosin (Minipress) 1 Mg Cap 3 MG PO Q12HR for Blood Pressure Management, #60 CAP Bruno George DO Nov 28, 2016 12:37
[2016-11-28 16:00] VITALS: BP 116/72; PULSE 103; RESP 16; TEMP 96.7; O2SAT 98
[2016-11-28] MEDS: CALCIUM CARBONATE 500 MG CHEWABLE TAB CHEW PRN (18:29)
[2016-11-28] MEDS: PRAZOSIN HCL 1 MG CAP PO SCH (19:41)
[2016-11-28 20:00] VITALS: BP 160/92; PULSE 90; RESP 17; TEMP 97; O2SAT 99
--- NOTE | 2016-11-28 20:35 | HHI.PR ---
Subjective Remarks Follow up for probable pheochromocytoma. Patient is doing well. He was seen earlier this afternoon. He was scheduled to start MIBG nuclear scan. After 3PM scan, he was supposed to be discharged home and return to the hospital tomorrow to complete MIBG. However, Prazosin was increased by surgery and per RN, surgery wanted to observe patient overnight. Objective Vitals Vital Signs Date Time Temp Pulse Resp B/P (MAP) Pulse Ox O2 Delivery O2 Flow Rate FiO2 11/28/16 16:00 96.7 103 16 116/72 (87) 98 11/28/16 12:00 96.6 114 16 125/64 (84) 99 11/28/16 08:00 98.0 71 18 157/83 (107) 98 11/28/16 04:00 98.0 72 17 140/76 (97) 98 11/28/16 00:00 97.7 102 17 140/78 (98) 98 11/27/16 20:41 100 18 153/94 (113) 99 I/O 11/27/16 11/27/16 11/27/16 11/28/16 11/28/16 11/28/16 06:59 14:59 22:59 06:59 14:59 22:59 Intake Total 480 ml 480 ml 480 ml 360 ml 240 ml Balance 480 ml 480 ml 480 ml 360 ml 240 ml Intake Oral 480 ml 480 ml 480 ml 360 ml 240 ml # Voids 3 4 2 2 2 Result Diagram: 11/25/16 1349 11/25/16 1349 Imaging Last Impressions Abdomen MRI 11/16/16 0000 Signed Impressions: Service Date/Time: October 15:34 - CONCLUSION: Large heterogeneously enhancing left adrenal mass again seen unchanged from recent CT. 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 Pheochromocytoma would be less likely with this appearance. Willie Lewis MD Chest CT 11/15/16 0000 Signed Impressions: Service Date/Time: Tuesday, November 15, 2016 13:57 - CONCLUSION: There are no suspicious lung lesions. Norman Mchugh MD FACR Chest X-Ray 11/14/16 1108 Signed Impressions: Service Date/Time: Monday, November 14, 2016 11:29 - CONCLUSION: No acute disease. Hood Schaefer MD Abdomen/Pelvis CT 11/14/16 0000 Signed Impressions: Service Date/Time: Monday, November 14, 2016 13:22 - CONCLUSION: 1. Increase in size of heterogeneously enhancing left adrenal mass. Left adrenal carcinoma can have this appearance or other entities such as pheochromocytoma. 2. Atherosclerosis. Hood Schaefer MD Objective Remarks GENERAL: AOX3, NAD SKIN: Warm and dry. HEAD: Normocephalic. EYES: No scleral icterus. No injection or drainage. NECK: Supple, trachea midline. No JVD or lymphadenopathy. CARDIOVASCULAR: Regular rate and rhythm without murmurs, gallops, or rubs. RESPIRATORY: Breath sounds equal bilaterally. No accessory muscle use. GASTROINTESTINAL: Abdomen soft, non-tender, nondistended. MUSCULOSKELETAL: No cyanosis, or edema. BACK: Nontender without obvious deformity. No CVA tenderness. Procedures None. A/P Problem List: (1) Anemia ICD Code: D64.9 - Anemia, unspecified Status: Acute (2) Abdominal pain ICD Code: R10.9 - Unspecified abdominal pain Status: Acute (3) Adrenal mass, left ICD Code: E27.9 - Disorder of adrenal gland, unspecified Status: Acute (4) Thrombocytosis ICD Code: D47.3 - Essential (hemorrhagic) thrombocythemia (5) Hyperglycemia ICD Code: R73.9 - Hyperglycemia, unspecified Assessment and Plan Mr. Ferrer is a 56-year-old male patient with a known medical history of hypertension and tobacco use who presented to the ED with complaints of left upper quadrant abdominal pain. Adrenal carcinoma, pheochromocytoma Left upper quadrant abdominal pain suspect secondary to left adrenal mass Anemia with elevated RDW, iron deficiency anemia Thrombocytosis, acute Elevated CPK and CK-MB - Abdomen/pelvis CT reviewed showing increase in size of heterogeneously enhancing left adrenal mass. - CXR reviewed showing no acute disease. - EKG reviewed showing NSR, no arrhythmias noted, no ST segment changes. - Occult stool negative. - MRI of abdomen favors adrenal cortical carcinoma. - Gen. surgery consulted and recommendations appreciated. - Status post EGD and colonoscopy: Gastritis; Polyps and diverticulosis were found and biopsied. Await pathology, continue PPI. - Consulted for CT-guided biopsy of adrenal mass. - Plan for MIGB started on 11/28/2016. - 24hr urine showed Normetanephrine 00240, total metanephrine 24h 27787. - continue prazosin which was increased today. Surgery wants to keep patient overnight for observation. Hypertension Well-controlled - Continue prazosin. - Clonidine PRN. Iron deficiency anemia GI and hematology are following. - We will likely discharge on ferrous sulfate. - Continue PPI. Tobacco abuse Cocaine abuse - Counselled on cessation. Renal insufficiency Possibly prerenal. - Trial of IV fluids and monitor. Resolved. Hyperglycemia Possibly a stress reaction or secondary to underlying condition. - Check a hemoglobin A1c. 6%. Leukocytosis May be a stress reaction. Afebrile. - follow CBC. Resolved. DVT prophylaxis: SCDs Discharge held per General surgery. Will d/c discharge order for now. Patient can likely be discharge on 11/29/2016. Problem Qualifiers (1) Anemia: Qualified Codes: D50.0 - Iron deficiency anemia secondary to blood loss ( chronic) (2) Abdominal pain: Qualified Codes: R10.12 - Left upper quadrant pain Bruno George DO Nov 28, 2016 20:35
[2016-11-29] VITALS: BP 143/74; PULSE 92; RESP 18; TEMP 97.1; O2SAT 97
[2016-11-29 04:57] VITALS: BP 130/74; PULSE 90; RESP 18; TEMP 97.5; O2SAT 97
[2016-11-29 07:50] VITALS: BP 140/64; PULSE 111; RESP 20; TEMP 98.2; O2SAT 98
[2016-11-29] MEDS: ACETAMINOPHEN/HYDROcodone 325 MG/10 MG TAB PO PRN (09:14)
[2016-11-29] MEDS: PRAZOSIN HCL 1 MG CAP PO SCH (09:14)
[2016-11-29] MEDS: SODIUM CHLORIDE 0.9% FLUSH 10 ML FLUSH IV FLUSH SCH (09:15)
[2016-11-29] MEDS: MAGNESIUM HYDROXIDE SUSP 30 ML CUP PO PRN (09:22)
[2016-11-29 11:50] VITALS: BP 121/72; PULSE 128; RESP 20; TEMP 97.1; O2SAT 97
--- NOTE | 2016-11-29 12:54 | HHI.PR ---
Subjective Remarks Patient had Mr. Ferrer is a 56-year-old male patient with a known medical history of hypertension and tobacco use who presented to the ED with complaints of left upper quadrant abdominal pain. Patient is doing well. He was having some left upper quadrant abdominal pain but has subsided after pain meds. He is scheduled for imaging at 3PM today after which he can be discharged. He will have to come back to nuclear medicine tomorrow morning. Patient verbalized understanding. HAD MBIG scan today to have rest tomorrow DW RN AND PT DC TO HOME Objective Vitals Vital Signs Date Time Temp Pulse Resp B/P (MAP) Pulse Ox O2 Delivery O2 Flow Rate FiO2 11/29/16 07:50 98.2 111 20 140/64 (89) 98 11/29/16 04:57 97.5 90 18 130/74 (92) 97 11/29/16 00:00 97.1 92 18 143/74 (97) 97 11/28/16 20:00 97.0 90 17 160/92 (114) 99 11/28/16 16:00 96.7 103 16 116/72 (87) 98 I/O 11/28/16 11/28/16 11/28/16 11/29/16 11/29/16 11/29/16 07:00 15:00 23:00 07:00 15:00 23:00 Intake Total 480 ml 360 ml 240 ml Balance 480 ml 360 ml 240 ml Intake Oral 480 ml 360 ml 240 ml # Voids 2 2 2 Result Diagram: 11/25/16 1349 11/25/16 1349 Imaging Last Impressions Abdomen MRI 11/16/16 0000 Signed Impressions: Service Date/Time: October 15:34 - CONCLUSION: Large heterogeneously enhancing left adrenal mass again seen unchanged from recent CT. 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 Pheochromocytoma would be less likely with this appearance. Willie Lewis MD Chest CT 11/15/16 0000 Signed Impressions: Service Date/Time: Tuesday, November 15, 2016 13:57 - CONCLUSION: There are no suspicious lung lesions. Norman Mchugh MD FACR Chest X-Ray 11/14/16 1108 Signed Impressions: Service Date/Time: Monday, November 14, 2016 11:29 - CONCLUSION: No acute disease. Hood Schaefer MD Abdomen/Pelvis CT 11/14/16 0000 Signed Impressions: Service Date/Time: Monday, November 14, 2016 13:22 - CONCLUSION: 1. Increase in size of heterogeneously enhancing left adrenal mass. Left adrenal carcinoma can have this appearance or other entities such as pheochromocytoma. 2. Atherosclerosis. Hood Schaefer MD Objective Remarks GENERAL: Had a talkative and cooperative SKIN: Warm and dry. HEAD: Atraumatic. Normocephalic. EYES: Pupils equal and round. No scleral icterus. No injection or drainage. Extraocular muscles intact ENT: No nasal bleeding or discharge. Mucous membranes pink and moist. Tongue is midline NECK: Trachea midline. No JVD. Supple CARDIOVASCULAR: Regular rate and rhythm. S1-S2 no S3 or S4 no heave or thrill or rub or gallop RESPIRATORY: No accessory muscle use. Clear to auscultation. Breath sounds equal bilaterally. GASTROINTESTINAL: Abdomen soft, non-tender, nondistended. Hepatic and splenic margins not palpable. MUSCULOSKELETAL: Extremities without clubbing, cyanosis, or edema. No obvious deformities. NEUROLOGICAL: Awake and alert. No obvious cranial nerve deficits. Motor grossly within normal limits. Five out of 5 muscle strength in the arms and legs. Normal speech. PSYCHIATRIC: Appropriate mood and affect; insight and judgment normal. Procedures None. Medications and IVs Current Medications Sodium Chloride 1,000 ml @ 1,000 mls/hr Q1H IV Last administered on 11/14/16 11:39; Start 11/14/16 at 11:08; Stop 11/14/16 at 12:07; Status DC Sodium Chloride (NS Flush) 2 ml UNSCH PRN IV FLUSH FLUSH AFTER USING IV ACCESS Last administered on 11/14/16 11:39; Start 11/14/16 at 11:15; Stop 11/14/16 at 15:01; Status DC Iohexol (Omnipaque 350 Inj) 76 ml STK-MED ONCE IVCONTRAST Last administered on 11/14/16 13:30; Start 11/14/16 at 13:30; Stop 11/14/16 at 13:31; Status DC Sodium Chloride (NS Flush) 2 ml UNSCH PRN IV FLUSH FLUSH AFTER USING IV ACCESS ; Start 11/14/16 at 15:00 Sodium Chloride (NS Flush) 2 ml BID IV FLUSH Last administered on 11/29/16 09 :15; Start 11/14/16 at 21:00 Acetaminophen (Tylenol) 650 mg Q4H PRN PO TEMP > 100.4; Start 11/14/16 at 15:00 Ondansetron HCl (Zofran Inj) 4 mg Q6H PRN IVP NAUSEA OR VOMITING Last administered on 11/14/16 21:02; Start 11/14/16 at 15:00 Acetaminophen (Tylenol) 650 mg Q6H PRN PO PAIN SCALE 1 TO 2; Start 11/14/16 at 15:00 Acetaminophen/ Hydrocodone Bitart ([place] 5-325 Mg) 1 tab Q4H PRN PO PAIN SCALE 3 TO 5 Last administered on 11/23/16 22:14; Start 11/14/16 at 15:00 Acetaminophen/ Hydrocodone Bitart ([place] 7.5-325 Mg) 1 tab Q4H PRN PO PAIN SCALE 6 TO 10 Last administered on 11/27/16 09:25; Start 11/14/16 at 15:00; Stop 11/27/16 at 10:45; Status DC Naloxone HCl (Narcan Inj) 0.4 mg UNSCH PRN IV PUSH SEE LABEL COMMENTS; Start at 15:00 Magnesium Hydroxide (Milk Of Magnesia Liq) 30 ml Q12H PRN PO MILD - MODERATE CONSTIPATION Last administered on 11/29/16 09:22; Start 11/14/16 at 15:00 Sennosides (Senokot) 17.2 mg Q12H PRN PO MODERATE - SEVERE CONSTIPATION Last administered on 11/14/16 21:02; Start 11/14/16 at 15:00 Bisacodyl (Dulcolax Supp) 10 mg DAILY PRN RECTAL SEVERE CONSITIPATION; Start at 15:00 Lactulose (Lactulose Liq) 30 ml DAILY PRN PO SEVERE CONSITIPATION; Start at 15:00 Iohexol (Omnipaque 350 Inj) 70 ml STK-MED ONCE IVCONTRAST Last administered on 11/14/16 13:52; Start 11/14/16 at 13:52; Stop 11/15/16 at 14:04; Status DC Magnesium Citrate (Citroma Liq) 300 ml ONCE ONCE PO Last administered on 18:31; Start 11/16/16 at 16:15; Stop 11/16/16 at 16:16; Status DC Magnesium Citrate (Citroma Liq) 300 ml ONCE ONCE PO Last administered on 18:32; Start 11/16/16 at 18:15; Stop 11/16/16 at 18:16; Status DC Gadodiamide (Omniscan Pf Inj) 15 ml STK-MED ONCE IVCONTRAST Last administered on 11/16/16 13:52; Start 11/16/16 at 13:52; Stop 11/16/16 at 16:06; Status DC Clonidine (Catapres) 0.1 mg Q6H PRN PO SYS BP GREATER THAN 160 MMHG Last administered on 11/23/16 01:46; Start 11/17/16 at 09:15 Fentanyl Citrate (fentaNYL INJ) 100 mcg STK-MED ONCE .ROUTE Last administered on 11/17/16 10:12; Start 11/17/16 at 10:12; Stop 11/17/16 at 10:13; Status DC Fentanyl Citrate (fentaNYL INJ) 100 mcg STK-MED ONCE .ROUTE ; Start 11/17/16 at 10:12; Stop 11/17/16 at 10:13; Status DC Midazolam HCl (Versed Inj) 5 mg STK-MED ONCE .ROUTE Last administered on 10:12; Start 11/17/16 at 10:12; Stop 11/17/16 at 10:13; Status DC Polyethylene Glycol/ Electrolytes (Colyte Liq) 4,000 ml ONCE ONCE PO Last administered on 11/17/16 14:00; Start 11/17/16 at 14:00; Stop 11/17/16 at 14:01 ; Status DC Miscellaneous Information ALL NURSING DEPARTME... UNSCH PRN .XX SEE LABEL COMMENTS; Start 11/17/16 at 12:53; Stop 11/18/16 at 12:52; Status DC Influenza Virus Vaccine (Flu (Quadrivalent) Vaccine Inj) 0.5 ml ONCE ONCE IM Last administered on 11/18/16 10:50; Start 11/18/16 at 10:00; Stop 11/18/16 at 10:01; Status DC Lidocaine HCl (Xylocaine-Mpf 1% Inj) 5 ml STK-MED ONCE OTHER ; Start 11/17/16 at 12:00; Stop 11/22/16 at 13:43; Status DC Propofol (Diprivan 200 Mg/20 ml Inj) 400 mg STK-MED ONCE IV ; Start 11/17/16 at 12:00; Stop 11/22/16 at 13:43; Status DC Prazosin HCl (Minipress) 2 mg Q12HR PO Last administered on 11/28/16 08:18; Start 11/24/16 at 21:00; Stop 11/28/16 at 11:32; Status DC Sodium Chloride 1,000 ml @ 100 mls/hr Q10H IV Last administered on 11/25/16 14:20; Start 11/25/16 at 13:45; Stop 11/25/16 at 23:44; Status DC Acetaminophen/ Hydrocodone Bitart ([place] 10-325 Mg) 1 tab Q4H PRN PO pain 6-10 Last administered on 11/29/16 09:14; Start 11/27/16 at 10:45 Oxycodone HCl (Roxicodone) 5 mg ONCE ONCE PO Last administered on 11/27/16 10 :52; Start 11/27/16 at 10:45; Stop 11/27/16 at 10:50; Status DC Calcium Carbonate (Tums Chew) 500 mg Q4H PRN CHEW indigestion Last administered on 11/28/16 18:29; Start 11/27/16 at 20:30 Prazosin HCl (Minipress) 3 mg Q12HR PO Last administered on 11/29/16 09:14; Start 11/28/16 at 21:00 Oxycodone HCl (Roxicodone) 5 mg ONCE ONCE PO Last administered on 11/28/16 11:53; Start 11/28/16 at 11:45; Stop 11/28/16 at 11:51; Status DC Urinary Catheter: No Vascular Central Line Catheter: No A/P Problem List: (1) Anemia ICD Code: D64.9 - Anemia, unspecified Status: Acute (2) Abdominal pain ICD Code: R10.9 - Unspecified abdominal pain Status: Acute (3) Adrenal mass, left ICD Code: E27.9 - Disorder of adrenal gland, unspecified Status: Acute (4) Thrombocytosis ICD Code: D47.3 - Essential (hemorrhagic) thrombocythemia (5) Hyperglycemia ICD Code: R73.9 - Hyperglycemia, unspecified Assessment and Plan Mr. Ferrer is a 56-year-old male patient with a known medical history of hypertension and tobacco use who presented to the ED with complaints of left upper quadrant abdominal pain. Adrenal carcinoma, pheochromocytoma Left upper quadrant abdominal pain suspect secondary to left adrenal mass Anemia with elevated RDW, iron deficiency anemia Thrombocytosis, acute Elevated CPK and CK-MB - Abdomen/pelvis CT reviewed showing increase in size of heterogeneously enhancing left adrenal mass. - CXR reviewed showing no acute disease. - EKG reviewed showing NSR, no arrhythmias noted, no ST segment changes. - Occult stool negative. - MRI of abdomen favors adrenal cortical carcinoma. - Gen. surgery consulted and recommendations appreciated. - Status post EGD and colonoscopy: Gastritis; Polyps and diverticulosis were found and biopsied. Await pathology, continue PPI. - Consulted for CT-guided biopsy of adrenal mass. - Plan for MIGB scan by hem/onc Sunday. - 24hr urine showed Normetanephrine 04156, total metanephrine 24h 01620. - continue prazosin. Start beta blockers in a couple weeks per surgery. Hypertension Well-controlled - Continue prazosin. - Clonidine PRN. Iron deficiency anemia GI and hematology are following. - We will likely discharge on ferrous sulfate. - Continue PPI. Tobacco abuse Cocaine abuse - Counselled on cessation. Renal insufficiency Possibly prerenal. - Trial of IV fluids and monitor. Resolved. Hyperglycemia Possibly a stress reaction or secondary to underlying condition. - Check a hemoglobin A1c. 6%. Leukocytosis May be a stress reaction. Afebrile. - follow CBC. Resolved. DVT prophylaxis: SCDs Problem Qualifiers (1) Anemia: Qualified Codes: D50.0 - Iron deficiency anemia secondary to blood loss ( chronic) (2) Abdominal pain: Qualified Codes: R10.12 - Left upper quadrant pain Norman Virgen DO Nov 29, 2016 12:54
--- NOTE | 2016-11-29 12:59 | HHI.DS ---
Discharge Summary Admission Date Nov 14, 2016 at 13:51 Discharge Date: Nov 29, 2016 Admitting Diagnosis abdominal pain, chest pain, anemia, thrombophilia (1) Anemia ICD Code: D64.9 - Anemia, unspecified Diagnosis: Secondary Status: Acute (2) Abdominal pain ICD Code: R10.9 - Unspecified abdominal pain Diagnosis: Secondary Status: Acute (3) Adrenal mass, left ICD Code: E27.9 - Disorder of adrenal gland, unspecified Diagnosis: Principal Status: Acute (4) Thrombocytosis ICD Code: D47.3 - Essential (hemorrhagic) thrombocythemia Diagnosis: Secondary (5) Hyperglycemia ICD Code: R73.9 - Hyperglycemia, unspecified Diagnosis: Secondary Procedures None. Brief History - From Admission Mr. Ferrer is a 56-year-old male patient with a known medical history of hypertension and tobacco use who presented to the ED with complaints of left upper quadrant abdominal pain. Patient states he awoke this morning with excruciating left abdominal pain that radiated up to his left chest area. Inspiration seems to make the pain worse. Does admit to associated nausea and diaphoresis, denies any vomiting. States that this pain is similar to "muscle soreness after working out". He does state he came in a couple weeks ago with similar complaints but left against medical advice due to job regulations and commitments. Patient denies any recent change in bowels, denies any diarrhea or constipation. Denies hematochezia. Denies ever having a colonoscopy or GI workup. Denies any recent fever, chills, headache, cough shortness of breath, dizziness, lightheadedness, vision changes, diplopia or dysuria. Patient does admit to a paternal medical history significant for colon cancer. CBC/BMP: 11/25/16 1349 11/25/16 1349 Imaging Last Impressions Abdomen MRI 11/16/16 0000 Signed Impressions: Service Date/Time: October 15:34 - CONCLUSION: Large heterogeneously enhancing left adrenal mass again seen unchanged from recent CT. 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 Pheochromocytoma would be less likely with this appearance. Willie Lewis MD Chest CT 11/15/16 0000 Signed Impressions: Service Date/Time: Tuesday, November 15, 2016 13:57 - CONCLUSION: There are no suspicious lung lesions. Norman Mchugh MD FACR Chest X-Ray 11/14/16 1108 Signed Impressions: Service Date/Time: Monday, November 14, 2016 11:29 - CONCLUSION: No acute disease. Hood Schaefer MD Abdomen/Pelvis CT 11/14/16 0000 Signed Impressions: Service Date/Time: Monday, November 14, 2016 13:22 - CONCLUSION: 1. Increase in size of heterogeneously enhancing left adrenal mass. Left adrenal carcinoma can have this appearance or other entities such as pheochromocytoma. 2. Atherosclerosis. Hood Schaefer MD PE at Discharge GENERAL: Had a talkative and cooperative SKIN: Warm and dry. HEAD: Atraumatic. Normocephalic. EYES: Pupils equal and round. No scleral icterus. No injection or drainage. Extraocular muscles intact ENT: No nasal bleeding or discharge. Mucous membranes pink and moist. Tongue is midline NECK: Trachea midline. No JVD. Supple CARDIOVASCULAR: Regular rate and rhythm. S1-S2 no S3 or S4 no heave or thrill or rub or gallop RESPIRATORY: No accessory muscle use. Clear to auscultation. Breath sounds equal bilaterally. GASTROINTESTINAL: Abdomen soft, non-tender, nondistended. Hepatic and splenic margins not palpable. MUSCULOSKELETAL: Extremities without clubbing, cyanosis, or edema. No obvious deformities. NEUROLOGICAL: Awake and alert. No obvious cranial nerve deficits. Motor grossly within normal limits. Five out of 5 muscle strength in the arms and legs. Normal speech. PSYCHIATRIC: Appropriate mood and affect; insight and judgment normal. Hospital Course Follow up for probable pheochromocytoma. Patient is doing well. He was seen earlier this afternoon. He was scheduled to start MIBG nuclear scan. After 3PM scan, he was supposed to be discharged home and return to the hospital tomorrow to complete MIBG. However, Prazosin was increased by surgery and per RN, surgery wanted to observe patient overnight. HAD PART OF MIBG SCAN TO HAVE REST TOMORROW Pt Condition on Discharge: Good Discharge Disposition: Discharge Home Discharge Time: > 30 minutes Discharge Instructions DIET: Follow Instructions for: As Tolerated, No Restrictions, Heart Healthy Diet Speech Therapy-Diet Recommends: Regular Activities you can perform: Regular-No Restrictions Follow up Referrals: Appointment for Follow Up - 11/29/16 with Nuclear medicine Come to [facility] and tell them you are scheduled to see nuclear medicine. Phone number [phone]. PCP Follow-up - 1 Week New Medications: Hydrocodone-Acetaminophen (Hydrocodone-Acetaminophen) 10-325 mg Tab 1 TAB PO Q4H PRN for pain 6-10, #20 TAB Prazosin (Minipress) 1 Mg Cap 3 MG PO Q12HR for Blood Pressure Management, #60 Norman Burgess DO Nov 29, 2016 12:59
--- NOTE | 2016-11-29 14:24 | PD.ONC.PN ---
Subjective Subjective Remarks Afebrile overnight Reports he is waiting on his discharge paperwork He states he knows to come to the outpatient radiology Center at 9 AM for continuation of his imaging tests with nuclear medicine. Objective Data Date Time Temp Pulse Resp B/P (MAP) Pulse Ox O2 Delivery O2 Flow Rate FiO2 11/29/16 11:50 97.1 128 20 121/72 (88) 97 11/29/16 07:50 98.2 111 20 140/64 (89) 98 11/29/16 04:57 97.5 90 18 130/74 (92) 97 11/29/16 00:00 97.1 92 18 143/74 (97) 97 11/28/16 20:00 97.0 90 17 160/92 (114) 99 11/28/16 16:00 96.7 103 16 116/72 (87) 98 Result Diagram: 11/25/16 1349 11/25/16 1349 Administered Medications Medications (Trade) Dose Ordered Sig/Yordan Route PRN Reason Start Time Stop Time Status Last Admin Dose Admin Sodium Chloride (NS Flush) 2 ml BID IV FLUSH 11/14/16 21:00 11/29/16 09:15 Ondansetron HCl (Zofran Inj) 4 mg Q6H PRN IVP NAUSEA OR VOMITING 11/14/16 15:00 11/14/16 21:02 Acetaminophen/ Hydrocodone Bitart (Guffey 5-325 Mg) 1 tab Q4H PRN PO PAIN SCALE 3 TO 5 11/14/16 15:00 11/23/16 22:14 Magnesium Hydroxide (Milk Of Magnesia Liq) 30 ml Q12H PRN PO MILD - MODERATE CONSTIPATION 11/14/16 15:00 11/29/16 09:22 Sennosides (Senokot) 17.2 mg Q12H PRN PO MODERATE - SEVERE CONSTIPATION 11/14/16 15:00 11/14/16 21:02 Clonidine (Catapres) 0.1 mg Q6H PRN PO SYS BP GREATER THAN 160 MMHG 11/17/16 09:15 11/23/16 01:46 Acetaminophen/ Hydrocodone Bitart (Guffey 10-325 Mg) 1 tab Q4H PRN PO pain 6-10 11/27/16 10:45 11/29/16 09:14 Calcium Carbonate (Tums Chew) 500 mg Q4H PRN CHEW indigestion 11/27/16 20:30 11/28/16 18:29 Prazosin HCl (Minipress) 3 mg Q12HR PO 11/28/16 21:00 11/29/16 09:14 Objective Remarks GENERAL: Middle aged male walking around the room in no acute distress SKIN: Warm and dry. HEAD: Normocephalic. EYES: No injection or drainage. NECK: Supple, trachea midline. CARDIOVASCULAR: Regular rate and rhythm RESPIRATORY: Breath sounds equal bilaterally. No accessory muscle use. GASTROINTESTINAL: Abdomen soft, non-tender, nondistended. EXTREMITIES: No cyanosis NEUROLOGICAL: aox3. normal speech. moving all extremities. Assessment/Plan Problem List: (1) Adrenal mass, left ICD Codes: E27.9 - Disorder of adrenal gland, unspecified Status: Acute Plan: -- MRI indicates pheochromocytoma less likely -- 24 hours urine shows elevated norepinephrines and metanephrines -- CT chest shows no obvious mass -- Colonoscopy,11/18/16 showed Colon polyps, path + adenomatous polyps. Diverticulosis Assessment 56 y/o male admitted with nausea and abdominal pain found to have a L adrenal lesion. Plan 1. MIBG scan today day #2 of 3 2. Continue Prazosin 3. Follow-up in oncology clinic once discharged Attending Statement The exam, history, and the medical decision-making described in the above note were completed with the assistance of the mid-level provider. I reviewed and agree with the findings presented. I attest that I had a [id number] encounter with the patient on the same day, and personally performed and documented my assessment and findings in the medical record. No new symptoms. Day 2/3 of MIBG scan. F/u with surgeon after d/c. Continue prazosin. Hattie James Nov 29, 2016 14:24 Rohit Duong MD Nov 29, 2016 16:10
--- NOTE | 2016-11-29 14:52 | HHI.PR ---
Subjective Subjective Notes Up to chair No issues Tolerating new dose of alpha sofy Objective Vitals/I&O Vital Signs Date Time Temp Pulse Resp B/P (MAP) Pulse Ox O2 Delivery O2 Flow Rate FiO2 11/29/16 11:50 97.1 128 20 121/72 (88) 97 Radiology Last 48 hours Impressions Abdomen MRI 11/16/16 0000 Signed Impressions: Service Date/Time: October 15:34 - CONCLUSION: Large heterogeneously enhancing left adrenal mass again seen unchanged from recent CT. 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 Pheochromocytoma would be less likely with this appearance. Willie Lewis MD Cardiovascular: Regular Lungs: Clear Abdomen: Non-distended, Non-tender Extremities: No edema A/P Assessment and Plan 56 year old male with adrenal mass; urine labs consistent with pheochromocytoma -Tolerating Increased dose of prazosin (with parameters for holding) -Will also need to be started on beta sofy in about two weeks -I recommend patient finishing MIBG scan prior to DC -Diet as tolerated -Rx for prazosin on chart -Spoke with CM about filling rx -Patient to follow up with Dr. Joseph next Nicky Monroe Nov 29, 2016 14:52
--- NOTE | 2016-11-30 13:08 | RADRPT ---
EXAM DATE/TIME: 11/28/2016 14:21 [facility] COMPARISON: No previous studies available for comparison. INDICATIONS : Pheocromocytoma. Left sided adrenal mass nausea and abdominal pain. DOSE: 10 mCi Indium-123 MIBG IV IMAGNG: SPECT/CT imaging with fusion was performed. RADIATION DOSE: CTDIvol (mGy) PLANAR IMAGIN hrs, 24 hrs, 48 hrs SPECT IMAGIN hrs, 48 hrs MEDICAL HISTORY : None SURGICAL HISTORY : Right knee. ENCOUNTER: Subsequent ACUITY: 1 week PAIN SCALE: 4/10 LOCATION: Abdomen. TECHNIQUE: Following intravenous administration of radiotracer whole body images were obtained at specified time s with SPECT imaging performed in sagittal, axial and coronal planes. Attenuation correction was per formed with computed tomography and both the attenuation correction and non-attenuation corrected gigi a sets were reviewed. FINDINGS: There is abnormal uptake in the left adrenal gland characteristics of neuroendocrine tumor. No other abnormal areas of activity are identified. CONCLUSION: 1. 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 This report was verified electronically.
== END 2016-11-29 15:38 | disposition home or self-care (01) ==
LOC: NEPE 10:20 → NEDA 13:51 → NEPHCDU 15:51 → HOCB 11-17 17:50
PROVIDERS: ADMIT Hospitalist; ATTEND Hospitalist
DX: D3A.8 Other benign neuroendocrine tumors (principal); E27.8 Other specified disorders of adrenal gland; K57.90 Diverticulosis of intestine, part unspecified, without perforation or abscess without bleeding; G89.3 Neoplasm related pain (acute) (chronic); D12.3 Benign neoplasm of transverse colon; D12.5 Benign neoplasm of sigmoid colon; K29.70 Gastritis, unspecified, without bleeding; K20.9 Esophagitis, unspecified; K52.9 Noninfective gastroenteritis and colitis, unspecified; R10.12 Left upper quadrant pain; R07.9 Chest pain, unspecified; D75.89 Other specified diseases of blood and blood-forming organs; D68.59 Other primary thrombophilia; R11.0 Nausea; R61 Generalized hyperhidrosis; F12.90 Cannabis use, unspecified, uncomplicated; F17.210 Nicotine dependence, cigarettes, uncomplicated; D47.3 Essential (hemorrhagic) thrombocythemia; R73.9 Hyperglycemia, unspecified; D50.0 Iron deficiency anemia secondary to blood loss (chronic); D72.829 Elevated white blood cell count, unspecified; R03.0 Elevated blood-pressure reading, without diagnosis of hypertension; F14.90 Cocaine use, unspecified, uncomplicated; Z80.0 Family history of malignant neoplasm of digestive organs; Z23 Encounter for immunization; Z03.89 Encounter for observation for other suspected diseases and conditions ruled out
CPT/HCPCS: 00740; 00810; 43239; 45380; 45385; 71010; 71260; 74177; 74183; 78803; 78804; 80048; 80053; 80307; 82378; 82384; 82550; 82552; 82607; 82728; 82746; 83036; 83540; 83550; 83615; 83690; 83735; 83835; 84100; 84484; 85025; 85044; 85610; 85730; 86301; 86850; 86880; 88305; 88312; 90471; 90686; 93005; 96361; 96374; 99211; 99285; A9579; A9582; G0378; J2250; J2405; J3010; J7030; Q9967; G0008; G0463; Q2038

== ENCOUNTER → 2016-12-15 | Outpatient (CLI) | payer SELFPAY ==
[~2016-12-15] MED LIST changes: -CEPH-460 PO; -DICL75TA PO; +HYDR-3583 PO; +PRAZ1 PO
[2016-12-15 10:38] LABS: BASOPHIL # 0.1 TH/MM3 (0-0.2); BASOPHIL % 1.2 % (0.0-2.0); EOSINOPHIL # 0.3 TH/MM3 (0-0.4); EOSINOPHIL % 2.7 % (0.0-4.0); HEMATOCRIT 25.7 % (39.0-51.0); HEMO FLAGS DIFF FINAL; LYMPH % 16.6 % (9.0-44.0); LYMPHOCYTE # 1.7 TH/MM3 (1.0-4.8); MEAN CELL VOLUME 79.6 FL (80.0-100.0); MEAN CORPUSCULAR HEMOGLOBIN 24.7 PG (27.0-34.0); MEAN CORPUSCULAR HGB CONC 31.1 % (32.0-36.0); MONO % 10.3 % (0.0-8.0); NEUT % 69.2 % (16.0-70.0); PLATELET COUNT 721 TH/MM3 (150-450); RED BLOOD COUNT 3.23 MIL/MM3 (4.50-5.90); RED CELL DISTRIBUTION WIDTH 18.6 % (11.6-17.2); WHITE BLOOD COUNT 10.1 TH/MM3 (4.0-11.0)
== END ==
LOC: CLAB 10:23
PROVIDERS: ATTEND Internal Medicine Gastroenterology
DX: D64.9 Anemia, unspecified (principal)
CPT/HCPCS: 36415; 85025

== ENCOUNTER → 2016-12-20 | Outpatient (CLI) | payer OTHER ==
--- NOTE | 2016-12-20 12:35 | RADRPT ---
EXAM DATE/TIME: 12/20/2016 09:39 [facility] COMPARISON: No previous studies available for comparison. INDICATIONS : Anemia. Patient complains of occasional constipation and some weight loss. FLUORO TIME: 1.2 minutes IMAGE COUNT: 13 CONTRAST: Entero Vu 24% Barium Sulfate (24% w/v, 20% w/w) IMAGING TIME(S): 15 min, 30 min, 45 min, 1 hr, 1.5 hrs,2hr MEDICAL HISTORY : Cardiovascular disease. Pt. states he has a benign mass on his adrenal gland. SURGICAL HISTORY : None. ENCOUNTER: Initial ACUITY: 1 day PAIN SCORE: 0/10 LOCATION: Bilateral Abdomen. FINDINGS: Preliminary film is unremarkable. The stomach is grossly unremarkable. Examination of the small bowel demonstrates normal mucosal pattern involving the jejunum and ileum. There is no evidence of mass or obstruction. No intraluminal filling defects are identified. Small bowel transit time is normal at 45 minutes. Fluoroscopy of the abdomen and terminal ileum demonstrat es no abnormality. CONCLUSION: Unremarkable small bowel examination. Norman Mchugh MD FACR on December 20, 2016 at 12:33 Board Certified Radiologist. This report was verified electronically.
== END ==
LOC: HRAD 09:15
PROVIDERS: ATTEND Internal Medicine Gastroenterology
DX: D64.9 Anemia, unspecified (principal)
CPT/HCPCS: 74250

== ENCOUNTER 2016-12-26 05:12 | Emergency (ER) | payer OTHER ==
[~2016-12-26] VITALS: Ht 188 cm; Wt 76.0 kg
[2016-12-26 05:14] VITALS: BP 141/78; PULSE 88; RESP 16; TEMP 97.9; O2SAT 100
[2016-12-26 05:24] VITALS: BP_SYST 145; BP_SYST 162; BP_DIAS 78; BP_DIAS 83; RESP 16; O2SAT 100
--- NOTE | 2016-12-26 05:27 | PD ---
HPI Chief Complaint: Chest Pain Time Seen by Provider: 05:20 Travel History International Travel<30 days: No Contact w/Intl Traveler<30days: No Traveled to known affect area: No History of Present Illness HPI AWAKEN BY PALPITATIONS AND CHEST TIGHTNESS, FAST POUNDING SENSATION, NO IRREGULAR SENSATION AT THIS POINT , DENIES PFSH Past Medical History Anxiety: Yes Depression: Yes Cardiovascular Problems: Yes Chest Pain: Yes Diminished Hearing: No Tetanus Vaccination: < 5 Years Influenza Vaccination: Yes Past Surgical History Other Surgery: Yes (RIGHT KNEE SURGERY) Social History Alcohol Use: Yes (OCCASSIONAL) Tobacco Use: Yes (1PACK A DAY) Substance Use: Yes (marijuana) Allergies-Medications (Allergen,Severity, Reaction): Coded Allergies: No Known Allergies (Verified Adverse Reaction, Unknown, 12/26/16) Reported Meds & Prescriptions Reported Meds & Active Scripts Active Minipress (Prazosin HCl) 1 Mg Cap 3 Mg PO Q12HR Physical Exam Narrative GENERAL: SKIN: Warm and dry. HEAD: Atraumatic. Normocephalic. EYES: Pupils equal and round. No scleral icterus. No injection or drainage. ENT: No nasal bleeding or discharge. Mucous membranes pink and moist. NECK: Trachea midline. No JVD. CARDIOVASCULAR: Regular rate and rhythm. RESPIRATORY: No accessory muscle use. Clear to auscultation. Breath sounds equal bilaterally. GASTROINTESTINAL: Abdomen soft, non-tender, nondistended. MUSCULOSKELETAL: Extremities without clubbing, cyanosis, or edema. No obvious deformities. NEUROLOGICAL: Awake and alert. No obvious cranial nerve deficits. Motor grossly within normal limits. Five out of 5 muscle strength in the arms and legs. Normal speech. PSYCHIATRIC: Appropriate mood and affect; insight and judgment normal. Data Data Last Documented VS Orders Orders Electrocardiogram (12/26/16 05:20) B-Type Natriuretic Peptide (12/26/16 05:20) Ckmb (Isoenzyme) Profile (12/26/16 05:20) Complete Blood Count With Diff (12/26/16 05:20) Comprehensive Metabolic Panel (12/26/16 05:20) Prothrombin Time / Inr (Pt) (12/26/16 05:20) Act Partial Throm Time (Ptt) (12/26/16 05:20) Troponin I (12/26/16 05:20) Lipase (12/26/16 05:20) Chest, Single Ap (12/26/16 05:20) Ecg Monitoring (12/26/16 05:20) Bilateral Bp Monitoring (12/26/16 05:20) Iv Access Insert/Monitor (12/26/16 05:20) Oximetry (12/26/16 05:20) Oxygen Administration (12/26/16 05:20) Sodium Chloride 0.9% Flush (Ns Flush) (12/26/16 05:30) Thyroid Stimulating Hormone (12/26/16 05:20) Lorazepam Inj (Ativan Inj) (12/26/16 05:45) Ed Discharge Order (12/26/16 06:16) CKMB (12/26/16 05:40) CKMB% (12/26/16 05:40) Labs Laboratory Tests Test 12/26/16 05:40 White Blood Count 11.6 TH/MM3 Red Blood Count 3.11 MIL/MM3 Hemoglobin 7.5 GM/DL Hematocrit 24.3 % Mean Corpuscular Volume 78.2 FL Mean Corpuscular Hemoglobin 24.2 PG Mean Corpuscular Hemoglobin Concent 31.0 % Red Cell Distribution Width 19.3 % Platelet Count 721 TH/MM3 Mean Platelet Volume 6.9 FL Neutrophils (%) (Auto) 68.8 % Lymphocytes (%) (Auto) 19.7 % Monocytes (%) (Auto) 7.6 % Eosinophils (%) (Auto) 2.6 % Basophils (%) (Auto) 1.3 % Neutrophils # (Auto) 8.0 TH/MM3 Lymphocytes # (Auto) 2.3 TH/MM3 Monocytes # (Auto) 0.9 TH/MM3 Eosinophils # (Auto) 0.3 TH/MM3 Basophils # (Auto) 0.2 TH/MM3 CBC Comment DIFF FINAL Differential Comment Prothrombin Time 10.3 SEC Prothromb Time International Ratio 0.9 RATIO Activated Partial Thromboplast Time 30.5 SEC Blood Urea Nitrogen 12 MG/DL Creatinine 1.13 MG/DL Random Glucose 120 MG/DL Total Protein 8.2 GM/DL Albumin 3.1 GM/DL Calcium Level 8.9 MG/DL Alkaline Phosphatase 132 U/L Aspartate Amino Transf (AST/SGOT) 14 U/L Alanine Aminotransferase (ALT/SGPT) 22 U/L Total Bilirubin 0.2 MG/DL Sodium Level 136 MEQ/L Potassium Level 3.7 MEQ/L Chloride Level 102 MEQ/L Carbon Dioxide Level 25.5 MEQ/L Anion Gap 9 MEQ/L Estimat Glomerular Filtration Rate 82 ML/MIN Total Creatine Kinase 227 U/L Creatine Kinase MB 2.6 NG/ML Troponin I LESS THAN 0.02 NG/ML B-Type Natriuretic Peptide 7 PG/ML Lipase 126 U/L Thyroid Stimulating Hormone 3rd Gen 0.876 uIU/ML MDM Medical Decision Making Medical Screen Exam Complete: Yes Emergency Medical Condition: Yes Medical Record Reviewed: Yes Interpretation(s) NSR 88, NL INTERVALS, NONSPEC STT CHANGES, NO STEMI PATTERN Differential Diagnosis PHEOCHROMOCYTOMA BREAKTHROUGH V SINUS TACH V ARRYTHMIA V STEMI V ANEMIA V DEHYDRATION Narrative Course PATIENT FOUND TO HAVE SOME GRADUAL ANEMIA OVER THE LAST MONTH AND A HALF, NORMAL VITAL SIGNS, NO TACHYCARDIA NOR ANY HYPOTENSION. PATIENT WILL BE D/C TO FOLLOW UP WITH DR MUÑOZ, Diagnosis Primary Impression: Palpitations Referrals: Rohit Muñoz MD TO FURTHER EVALUATE YOUR ANEMIA Patient Instructions: Anemia (ED), General Instructions, Heart Palpitations (ED ) Disposition: 01 DISCHARGE HOME Condition: Stable Julian Serrano MD Dec 26, 2016 05:27
[2016-12-26] MEDS ORDERED: SODIUM CHLORIDE 0.9% FLUSH 10 ML FLUSH IVF PRN (05:30)
[2016-12-26] MEDS ORDERED: LORazepam 2 MG/ML VIAL IV PUSH ONE (05:45)
[2016-12-26 06:01] LABS: BASOPHIL # 0.2 TH/MM3 (0-0.2); BASOPHIL % 1.3 % (0.0-2.0); EOSINOPHIL # 0.3 TH/MM3 (0-0.4); EOSINOPHIL % 2.6 % (0.0-4.0); HEMATOCRIT 24.3 % (39.0-51.0); HEMO FLAGS DIFF FINAL; LYMPH % 19.7 % (9.0-44.0); LYMPHOCYTE # 2.3 TH/MM3 (1.0-4.8); MEAN CELL VOLUME 78.2 FL (80.0-100.0); MEAN CORPUSCULAR HEMOGLOBIN 24.2 PG (27.0-34.0); MONO % 7.6 % (0.0-8.0); NEUT % 68.8 % (16.0-70.0); PLATELET COUNT 721 TH/MM3 (150-450); RED BLOOD COUNT 3.11 MIL/MM3 (4.50-5.90); RED CELL DISTRIBUTION WIDTH 19.3 % (11.6-17.2); WHITE BLOOD COUNT 11.6 TH/MM3 (4.0-11.0)
--- NOTE | 2016-12-26 06:01 | RADRPT ---
EXAM DATE/TIME: 12/26/2016 05:34 [facility] COMPARISON: CHEST SINGLE AP, November 14, 2016, 11:29. INDICATIONS : Short of breath. Left sided chest pain. MEDICAL HISTORY : None. SURGICAL HISTORY : None. ENCOUNTER: Initial ACUITY: 1 day PAIN SCORE: 8/10 LOCATION: Left chest FINDINGS: A single view of the chest demonstrates the lungs to be symmetrically aerated without evidence of mas s, infiltrate or effusion. The cardiomediastinal contours are unremarkable. Osseous structures are intact. CONCLUSION: 1. No acute cardiopulmonary disease. Duncan Miranda MD on December 26, 2016 at 5:59 Board Certified Radiologist. This report was verified electronically.
[2016-12-26 06:13] LABS: APTT (PATIENT) 30.5 SEC (24.3-30.1); INTERNATIONAL NORMALIZED RATIO 0.9 RATIO; PROTHROMBIN TIME - PATIENT 10.3 SEC (9.8-11.6)
[2016-12-26 06:14] LABS: ANION GAP 9 MEQ/L (5-15); AST (GOT) 14 U/L (15-37); BICARBONATE 25.5 MEQ/L (21.0-32.0); BLOOD UREA NITROGEN 12 MG/DL (7-18); CHLORIDE 102 MEQ/L (98-107); GLOMERULAR FILTRATION RATE 82 ML/MIN (>89); POTASSIUM 3.7 MEQ/L (3.5-5.1); SODIUM (NA) 136 MEQ/L (136-145)
[2016-12-26 06:25] LABS: ALKALINE PHOSPHATASE 132 U/L (45-117); ALT (GPT) 22 U/L (12-78); CREATINE KINASE 227 U/L (39-308); TOTAL BILIRUBIN ADULT 0.2 MG/DL (0.2-1.0)
[2016-12-26 06:39] LABS: CKMB 2.6 NG/ML (0.5-3.6)
--- NOTE | 2016-12-26 18:47 | EKG ---
Date Performed: 12/26/2016 Time Performed: 05:25:26 PTAGE: 56 years EKG: Sinus rhythm NONSPECIFIC T-WAVE ABNORMALITY BORDERLINE ECG Compared to prior tracing no significant change PREVIOUS TRACING : 11/14/2016 10.38.38 DOCTOR: Zuleyka Rudd Interpretating Date/Time 12/26/2016 18:47:11
== END 2016-12-26 06:34 | disposition home or self-care (01) ==
LOC: NEPE 05:12
DX: R00.2 Palpitations (principal); F41.9 Anxiety disorder, unspecified; F32.9 Major depressive disorder, single episode, unspecified; Z72.0 Tobacco use
CPT/HCPCS: 71010; 80053; 82550; 82552; 83690; 83880; 84443; 84484; 85025; 85610; 85730; 93005; 96374; 99285; J2060

== ENCOUNTER 2017-11-14 09:58 | Observation (INO) ==
[2017-11-14] MEDS ORDERED: Ketorolac Inj 30 MG/ML (IVP) Vial IV.PUSH ONE (10:41)
[2017-11-14 11:03] LABS: Baso # (Auto) 0.1 th/mm3 (0.0-0.2); Baso % (Auto) 1.5 % (0.0-2.0); Eos # (Auto) 0.1 th/mm3 (0.0-0.4); Eos % (Auto) 1.3 % (0.0-4.0); Hematocrit 31.9 % (39.0-51.0); Lymph # (Auto) 1.8 th/mm3 (1.0-4.8); Mean Corpuscular HGB Conc 31.2 % (32.0-36.0); Mean Corpuscular Hemoglobin 26.2 pg (27.0-34.0); Mean Corpuscular Volume 84.1 fL (80.0-100.0); Mean Platelet Volume 7.3 fL (7.0-11.0); Mono # (Auto) 0.7 th/mm3 (0.0-0.9); Neut # (Auto) 6.4 th/mm3 (1.8-7.7); Neut % (Auto) 69.2 % (16.0-70.0); Platelet Count 626 th/mm3 (150-450); Red Blood Count 3.79 mil/mm3 (4.50-5.90); Red Cell Distribution Width 18.5 % (11.6-17.2); White Blood Count 9.2 th/mm3 (4.0-11.0)
[2017-11-14 11:18] LABS: Albumin 3.2 g/dL (3.4-5.0); Anion Gap 9 meq/L (5-15); Aspartate Aminotransferase 13 U/L (15-37); Blood Urea Nitrogen 15 mg/dL (7-18); Calcium 9.1 mg/dL (8.5-10.1); Carbon Dioxide 22.7 meq/L (21.0-32.0); Chloride 104 meq/L (98-107); Glomerular Filtration Rate 68 mL/min (>89); Glucose,Random 87 mg/dL (74-106); Lipase 111 U/L (73-393); Potassium 3.4 meq/L (3.5-5.1); Sodium 136 meq/L (136-145)
[2017-11-14 11:20] LABS: Alanine Aminotransferase 19 U/L (12-78); Alkaline Phosphatase 147 U/L (45-117); Total Protein 7.9 g/dL (6.4-8.2)
--- NOTE | 2017-11-14 11:24 | ED ---
HPI General Chief Complaint: Abdominal Pain Stated Complaint: Medical Time Seen by Provider: 11/14/17 10:30 Source: patient Mode of arrival: ambulatory Limitations: no limitations History of Present Illness HPI narrative: 57-year-old male presents to the emergency department complaint of left upper quadrant abdominal pain. 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 He also states that he has insurance and can now follow- up to have it removed. He had an appointment [address] Wynn, which he missed. He has been reporting cold sweats. Denies fevers. Reports nausea without vomiting. Denies diarrhea or constipation, denies dysuria. Denies bloody, black or tarry stools. Reports alcohol use daily. Reports marijuana use. Reports tobacco use. Denies history of abdominal surgeries. Rates pain 11/28. Has taken ibuprofen with no relief. History of anemia and hypertension. Primary CARE providers Dr. Rubio. Oncologist is Dr. Wynn. No known allergies. Has no other medical complaints. No other modifying factors or associated signs and symptoms. Related Data Home Medications Medication Instructions Recorded Confirmed No Known Home Medications 11/14/17 11/14/17 Allergies Allergy/AdvReac Type Severity Reaction Status Date / Time No Known Allergies Unknown Uncoded 12/26/16 05:15 Review of Systems ROS: all other systems reviewed are negative [facility] Social History Social History Substance History: No History of Abuse Smoking Status: Smoker, status unknown Tobacco Type: Cigarettes How Often Do You Have a Drink Containing Alcohol: 2 to 4 times a month Recent Travel in [facility] within the Last 8 Weeks: No Recent Out of Country Travel within the Last 8 Weeks: No Immunization History Tetanus Immunization: Unsure Exam Narrative Exam Narrative: GENERAL: Well-nourished, well-developed black male patient, in no acute distress; afebrile SKIN: Warm and dry. HEAD: Atraumatic. Normocephalic. EYES: Pupils equal and round. No scleral icterus. No injection or drainage. ENT: Mucosa pink and moist. Airway patent. NECK: Trachea midline. CARDIOVASCULAR: Regular rate and rhythm. No murmur appreciated. RESPIRATORY: No accessory muscle use. Clear to auscultation. Breath sounds equal bilaterally. GASTROINTESTINAL: Abdomen soft, tenderness on palpation to left upper quadrant, nondistended. Hepatic and splenic margins not palpable. Bowel sounds are active 4 quadrants. Nonrigid. No guarding. MUSCULOSKELETAL: No obvious deformities. No clubbing. No cyanosis. No edema. NEUROLOGICAL: Awake and alert. Oriented 3. No obvious cranial nerve deficits. Motor grossly within normal limits. Normal speech. PSYCHIATRIC: Appropriate mood and affect; insight and judgment normal. Course Initial Documented Vital Signs Temperature 98.6 F 11/14/17 10:20 Pulse Rate 93 H 11/14/17 10:20 Respiratory Rate 16 11/14/17 10:20 Blood Pressure 165/84 H 11/14/17 10:20 Pulse Oximetry 100 11/14/17 10:20 Last Documented Vital Signs Temperature 98.6 F 11/14/17 10:20 Pulse Rate 94 H 11/14/17 13:57 Respiratory Rate 18 11/14/17 14:23 Blood Pressure 136/78 11/14/17 13:57 Pulse Oximetry 97 11/14/17 13:57 Medical Decision Making [facility] [place] Narrative Medical decision making narrative: 57-year-old male with history of a tumor on his adrenal gland, complaining of the same abdominal pain that he always has for the past year, with worsening times [address] Ayala and I discussed plan of care. CBC, CMP, lipase, UA, IV, Toradol, Zofran ordered. 1128: Hemoglobin 10.0. Platelet count 626. Otherwise CBC unremarkable. Potassium 3.4. Otherwise CMP unremarkable. Lipase 111. 1337: Ct abd/pelvis: The heterogeneous left adrenal gland mass has enlarged compared to the April 2017 examination measuring up to 7.8 cm. The appearance remains suspicious for a malignant adrenal gland mass. Suggest surgical consultation for possible excision of this mass. One could consider percutaneous biopsy, if needed.2. Moderate atherosclerotic disease. Patient provided a copy of the CT report and Dr. Ayala discussed CT findings. Patient is having intractable abdominal pain. Morphine and Zofran ordered. Patient will be admitted for intractable abdominal pain. Dr. Ayala spoke with Dr. Torres and the patient will be admitted for intractable abdominal pain; report given. Medical Screen Exam Complete: Yes Emergency Medical Condition: Yes Differential Diagnosis Differential Diagnosis: Adrenal tumor, malignancy, intractable abdominal pain Lab Data Result diagrams: 11/14/17 10:42 11/14/17 10:42 Lab Results 11/14/17 11/14/17 11/14/17 Range/Units 10:42 10:42 13:49 WBC 9.2 (4.0-11.0) th/mm3 RBC 3.79 L (4.50-5.90) mil/mm3 Hgb 10.0 L (13.0-17.0) gm/dL Hct 31.9 L (39.0-51.0) % MCV 84.1 (80.0-100.0) fL MCH 26.2 L (27.0-34.0) pg MCHC 31.2 L (32.0-36.0) % RDW 18.5 H (11.6-17.2) % Plt Count 626 H (150-450) th/mm3 MPV 7.3 (7.0-11.0) fL Neut % (Auto) 69.2 (16.0-70.0) % Lymph % (Auto) 20.0 (9.0-44.0) % [place] % (Auto) 8.0 (0.0-8.0) % Eos % (Auto) 1.3 (0.0-4.0) % Baso % (Auto) 1.5 (0.0-2.0) % Neut # (Auto) 6.4 (1.8-7.7) th/mm3 Lymph # (Auto) 1.8 (1.0-4.8) th/mm3 [place] # (Auto) 0.7 (0.0-0.9) th/mm3 Eos # (Auto) 0.1 (0.0-0.4) th/mm3 Baso # (Auto) 0.1 (0.0-0.2) th/mm3 WBC Differential . Differential Comment Auto diff final Sodium 136 (136-145) meq/L Potassium 3.4 L (3.5-5.1) meq/L Chloride 104 (98-107) meq/L Carbon Dioxide 22.7 (21.0-32.0) meq/L Anion Gap 9 (5-15) meq/L BUN 15 (7-18) mg/dL Creatinine 1.32 H (0.60-1.30) mg/dL Estimated GFR 68 L (>89) mL/min Random Glucose 87 (74-106) mg/dL Calcium 9.1 (8.5-10.1) mg/dL Total Bilirubin 0.2 (0.2-1.0) mg/dL AST 13 L (15-37) U/L ALT 19 (12-78) U/L Alkaline Phosphatase 147 H (45-117) U/L Total Protein 7.9 (6.4-8.2) g/dL Albumin 3.2 L (3.4-5.0) g/dL Lipase 111 (73-393) U/L Urine Color Straw (Yellw/Straw) Urine Clarity Clear (Clear) Urine pH 6.0 (5.0-8.5) Ur Specific [place] 1.019 (1.002-1.035) Urine Protein 30 H (Neg-Trace) mg/dL Urine Glucose (UA) Negative (Negative) mg/dL Urine Ketones Negative (Negative) mg/dL Urine Occult Blood Negative (Negative) Urine Nitrate Negative (Negative) Urine Bilirubin Negative (Negative) Urine Urobilinogen Less than 2 (Less than 2) mg/dL Ur Leukocyte Esterase Negative (Negative) Urine RBC Less than 1 (0-3) /hpf Urine WBC Less than 1 (0-5) /hpf Micro UA Comment Culture not ind Ur Microscopic Review Not Reportable Urine Culture Comments Culture not ind Imaging Data Radiologist's impression: Abdomen/Pelvis CT 11/14/17 10:34 CONCLUSION: 1. The heterogeneous left adrenal gland mass has enlarged compared to the April 2017 examination measuring up to 7.8 cm. The appearance remains suspicious for a malignant adrenal gland mass. Suggest surgical consultation for possible excision of this mass. One could consider percutaneous biopsy, if needed. 2. Moderate atherosclerotic disease. Discharge Plan Discharge Disposition Patient Disposition: 30 Still Patient Discharge Condition Condition: Stable Discharge Details Diagnosis: Adrenal mass, left, Intractable abdominal pain Physicians Team ED Provider: Paulino Ayala ED Midlevel Provider: Lala Ortiz Primary Care Provider: UNKNOWN, Rxs /Orders / Referrals /Forms Prescriptions: No Action No Known Home Medications RF: 0 Status ED Status: With Doctor
--- NOTE | 2017-11-14 13:13 | CT ---
EXAM DATE: 11/14/2017 11:32 AM EDT AGE/SEX: 57 years / Male INDICATIONS: Left sided abdominal pain. History of left adrenal tumor. CLINICAL DATA: This is the patient's initial encounter. Patient reports that signs and symptoms have been present for 1 day and indicates a pain score of 9/10. MEDICAL/SURGICAL HISTORY: . Left adrenal tumor. None. ORAL CONTRAST: No oral contrast ingested. RADIATION DOSE: 6.64 CTDI (mGy) COMPARISON: [facility] [place], CT ABDOMEN & PELVIS W CONTRAST, 04/30/2017. [facility] [place], MRI ABDOMEN W & W/O CONTRAST, 11/16/2016. . TECHNIQUE: Multiple contiguous axial images were obtained through the abdomen and pelvis following b olus infusion of 86 ml Omnipaque 350 (iohexol) nonionic water-soluble contrast as a single exam dos e. No oral contrast ingested. Using automated exposure control and adjustment of the mA and/or kV ac cording to patient size, radiation dose was kept as low as reasonably achievable to obtain optimal di agnostic quality images. DICOM format image data is available electronically for review and comparis on. FINDINGS: Lower chest: No acute abnormality is identified. Hepatobiliary: No focal liver lesion is identified. Hepatic vasculature demonstrates no abnormality. No calcified gallstones are present. Kidneys: No hydronephrosis, stone, or mass. Adrenal Glands: Right adrenal gland is normal. Left adrenal gland contains a peripherally enhancing a nd centrally low density mass measuring 5.5 x 4.8 x 7.8 cm compared to 5.1 x 4.8 x 6.9 cm on the most recent prior examination. Spleen: Within normal limits. Pancreas: Within normal limits. Vascular: The aorta is nonaneurysmal. There is moderate atherosclerotic disease. Bowel/Mesentery: The stomach and small bowel demonstrate no abnormality. No acute colon abnormality i s seen. There is no free intraperitoneal air or fluid. Abdominal Wall: No hernia is visualized. Retroperitoneum: No lymphadenopathy. Bladder: No wall thickening or mass. Reproductive: Within normal limits. Inguinal: No lymphadenopathy or hernia. Musculoskeletal: No acute osseous abnormality is identified. There are degenerative changes throughou t the lumbar spine with severe degenerative disc disease at L3-L4 and L4-L5. CONCLUSION: 1. The heterogeneous left adrenal gland mass has enlarged compared to the April 2017 examination rigoberto suring up to 7.8 cm. The appearance remains suspicious for a malignant adrenal gland mass. Suggest self rgical consultation for possible excision of this mass. One could consider percutaneous biopsy, if ne eded. 2. Moderate atherosclerotic disease. Electronically signed by: Marlon Hunt MD 11/14/2017 1:12 PM EDT
[2017-11-14] MEDS ORDERED: Morphine Inj 4 MG/ML Vial IV.PUSH ONE (13:47)
[2017-11-14] MEDS ORDERED: Acetaminophen 325 MG Tablet PO PRN (14:18)
[2017-11-14] MEDS ORDERED: Morphine Inj 4 MG/ML Vial IV.PUSH PRN (14:21)
[2017-11-14 14:25] LABS: Bilirubin,Urine Negative (Negative); Clarity,Urine Clear (Clear); Color,Urine Straw (Yellw/Straw); Glucose,Urine (UA) Negative (Negative); Leukocyte Esterase,Urine Negative (Negative); Nitrite,Urine Negative (Negative); Specific Gravity,Urine 1.019 (1.002-1.035)
[2017-11-14] MEDS ORDERED: LORazepam 1 MG Tablet PO PRN (15:25)
--- NOTE | 2017-11-14 15:41 | P.HPIM ---
History of Present Illness Primary Care Physician: UNKNOWN Chief Complaint: Abdominal pain History of Present Illness: The patient is a 57-year-old male with a past medical history of pheochromocytoma who is presenting to the hospital with increasing abdominal pain. The patient states that he was diagnosed with pheochromocytoma 1 year ago and has been following with surgery and oncology. He was started on prazosin but was unable to tolerate that medication secondary to palpitations. He says he has been unable to follow-up at certain appointments because he did not have insurance, but he says that he now has insurance. He says he has been experiencing severe left-sided abdominal pain just below the rib cage. The pain has been rated at a 10 out of 10 in severity. The patient has been taking 12 ibuprofens daily for the past month for pain control. He also states he has been drinking a sixpack of beer daily. He does endorse some diarrhea and nausea. He has been tolerating a diet. He has been struggling with depression. Review of Systems All other systems reviewed negative except as stated in HPI [facility] - History History Provided By: Patient - Medical History Medical History: Medical History (Last Updated 11/14/17 @ 15:35 by Deniz Torres DO) Alcohol abuse Pheochromocytoma Sciatic nerve injury - Surgical History Surgical History: Surgical History (Last Updated 11/14/17 @ 15:36 by Deniz Torres DO) H/O right knee surgery - Family History Family History: Family History (Last Updated 11/14/17 @ 15:36 by Deniz Torres DO) Other Lung cancer - Tobacco History Tobacco Use In Past 30 Days: Yes Smoking Status: Current every day smoker Tobacco Type: Cigarettes - Alcohol History How Often Do You Have a Drink Containing Alcohol: 4 or more times a week - Substance Use Type Marijuana Status: Active - Travel History Recent Travel in the [place] Within the Last 8 Weeks: No Recent Travel Out of the Country Within the Last 8 Weeks: No - Immunization History Tetanus Immunization: Unsure Medications and Allergies Active Medications: Active Medications Acetaminophen (Tylenol) 650 mg PO Q4H PRN PRN Reason: Temp > 100.4 Flumazenil (Romazecon Inj) 0.2 mg IV.PUSH Q1M PRN PRN Reason: OVERSEDATION Lorazepam (Ativan) 1 mg PO Q4H PRN PRN Reason: for CIWA 8-10 Lorazepam (Ativan) 2 mg PO Q2H PRN PRN Reason: for CIWA 11-14 Lorazepam (Ativan Inj) 2 mg IV.PUSH Q15M PRN PRN Reason: for CIWA > 20 Lorazepam (Ativan Inj) 2 mg IV.PUSH Q1H PRN PRN Reason: for CIWA 15-20 Morphine Sulfate (Morphine Inj) 4 mg IV.PUSH Q4H PRN PRN Reason: Pain 6-10 Ondansetron HCl (Zofran Inj) 4 mg IV.PUSH Q6H PRN PRN Reason: NAUSEA OR VOMITING Pantoprazole Sodium (Protonix) 40 mg PO BID ZANE Senna/Docusate Sodium (Coreen-Colace) 1 tab PO BID ZANE Sodium Chloride (Ns Flush) 2 ml IV.FLUSH PRN PRN PRN Reason: FLUSH AFTER USING IV ACCESS Allergies Allergy/AdvReac Type Severity Reaction Status Date / Time No Known Allergies Unknown Uncoded 12/26/16 05:15 Home Medications Medication Instructions Recorded Confirmed Type No Known Home Medications 11/14/17 11/14/17 History Exam Vital signs: Vital Signs 11/14/17 10:20 11/14/17 11:12 11/14/17 13:57 Temperature 98.6 F Pulse Rate 93 H 94 H Respiratory Rate 16 18 Blood Pressure 165/84 H 136/78 Pulse Oximetry 100 97 11/14/17 14:23 Temperature Pulse Rate Respiratory Rate 18 Blood Pressure Pulse Oximetry Intake & Output 11/13/17 11/14/17 11/14/17 18:59 06:59 18:59 Weight 77.111 kg Narrative: GENERAL: Well-nourished, well-developed male patient, in no acute distress. SKIN: Warm and dry. HEAD: Atraumatic. Normocephalic. EYES: Pupils equal and round. No scleral icterus. No injection or drainage. ENT: Mucosa pink and moist. Airway patent. NECK: Trachea midline. CARDIOVASCULAR: Regular rate and rhythm. No murmur appreciated. RESPIRATORY: No accessory muscle use. Clear to auscultation. Breath sounds equal bilaterally. GASTROINTESTINAL: Abdomen soft, tenderness on palpation to left upper quadrant, nondistended. Hepatic and splenic margins not palpable. Bowel sounds are active 4 quadrants. Nonrigid. No guarding. MUSCULOSKELETAL: No obvious deformities. No clubbing. No cyanosis. No edema. NEUROLOGICAL: Awake and alert. Oriented 3. No obvious cranial nerve deficits. Motor grossly within normal limits. Normal speech. PSYCHIATRIC: Slightly flattened affect. Results - Labs CBC & Chem 7: 11/14/17 10:42 11/14/17 10:42 Labs: Short CBC 11/14/17 Range/Units 10:42 WBC 9.2 (4.0-11.0) th/mm3 Hgb 10.0 L (13.0-17.0) gm/dL Hct 31.9 L (39.0-51.0) % Plt Count 626 H (150-450) th/mm3 BMP 11/14/17 10:42 Sodium 136 Potassium 3.4 L Chloride 104 Carbon Dioxide 22.7 BUN 15 Creatinine 1.32 H Calcium 9.1 Liver Function 11/14/17 Range/Units 10:42 Total Bilirubin 0.2 (0.2-1.0) mg/dL AST 13 L (15-37) U/L ALT 19 (12-78) U/L Alkaline Phosphatase 147 H (45-117) U/L Albumin 3.2 L (3.4-5.0) g/dL Urine 11/14/17 Range/Units 13:49 Urine Color Straw (Yellw/Straw) Urine Clarity Clear (Clear) Urine pH 6.0 (5.0-8.5) Ur Specific [place] 1.019 (1.002-1.035) Urine Protein 30 H (Neg-Trace) mg/dL Urine Glucose (UA) Negative (Negative) mg/dL - Imaging Impressions Abdomen/Pelvis CT 11/14/17 10:34 CONCLUSION: 1. The heterogeneous left adrenal gland mass has enlarged compared to the April 2017 examination measuring up to 7.8 cm. The appearance remains suspicious for a malignant adrenal gland mass. Suggest surgical consultation for possible excision of this mass. One could consider percutaneous biopsy, if needed. 2. Moderate atherosclerotic disease. Caprini VTE Risk Assessment Caprini VTE Risk Assessment: Moderate/High Risk (score >= 2) Caprini Risk Assessment Model: Point Value = 1 Point Value = 2 Point Value = 3 Point Value = 5 Age 41-60 Minor surgery BMI > 25 kg/m2 Swollen legs Varicose veins or History of unexplained or recurrent spontaneous Oral contraceptives or hormone replacement Sepsis (< 1 month) Serious lung disease, including pneumonia (< 1 month) Abnormal pulmonary function Acute myocardial infarction Congestive heart failure (< 1 month) History of inflammatory bowel disease Medical patient at bed rest Age 61-74 Arthroscopic surgery Major open surgery (> 45 min) Laparoscopic surgery (> 45 min) Malignancy Confined to bed (> 72 hours) Immobilizing plaster cast Central venous access Age >= 75 History of VTE Family history of VTE Factor V Leiden Prothrombin [id number] Lupus anticoagulant Anticardiolipin antibodies Elevated serum homocysteine Heparin-induced thrombocytopenia Other congenital or acquired thrombophilia Stroke (< 1 month) Elective arthroplasty Hip, pelvis, or leg fracture Acute spinal cord injury (< 1 month) Prophylaxis Regimen: Total Risk Factor Score Risk Level Prophylaxis Regimen 0-1 Low Early ambulation 2 Moderate Order ONE of the following: *Sequential Compression Device (SCD) *Heparin 5000 units SQ BID 3-4 Higher Order ONE of the following medications: *Heparin 5000 units SQ TID *Enoxaparin/Lovenox 40 mg SQ daily (WT < 150 kg, CrCl > 30 mL/min) *Enoxaparin/Lovenox 30 mg SQ daily (WT < 150 kg, CrCl > 10-29 mL/min) *Enoxaparin/Lovenox 30 mg SQ BID (WT < 150 kg, CrCl > 30 mL/min) AND/OR *Sequential Compression Device (SCD) 5 or more Highest Order ONE of the following medications: *Heparin 5000 units SQ TID (Preferred with Epidurals) *Enoxaparin/Lovenox 40 mg SQ daily (WT < 150 kg, CrCl > 30 mL/min) *Enoxaparin/Lovenox 30 mg SQ daily (WT < 150 kg, CrCl > 10-29 mL/min) *Enoxaparin/Lovenox 30 mg SQ BID (WT < 150 kg, CrCl > 30 mL/min) AND *Sequential Compression Device (SCD) Assessment and Plan - Plan Pheochromocytoma Chronic. Follows with surgery and oncology but has been having follow-up difficulties secondary to insurance problems. He presents with increasing abdominal pain. CT shows increase in size of the left adrenal gland mass. -General surgery consult pending. -Pain control with the bowel regimen. -Patient unable to tolerate prazosin. Blood pressure is currently controlled. Monitor. Abdominal pain As mentioned above the pheochromocytoma has increased in size. The patient has also been taking 12 ibuprofens a day and drinking a 6 pack daily which could certainly increase abdominal pain by way of gastritis and peptic ulcer disease. -Protonix p.o. twice daily. -Pain control as needed. Currently has IV morphine available. -Check a Hemoccult. -instructed patient not to take ibuprofen in such large quantities for so long. Alcohol abuse The patient drinks a 6 pack daily. -Cessation instruction. -CIWA protocol. Nicotine abuse The patient smokes 1PPD. -cessation instruction. Anemia Chronic. -Hemoccult pending. -follow CBC. PPx: SCDs
[2017-11-14] MEDS: Dextrose 5%/NaCl 0.9% Inj 1,000 ML IV.CONT SCH (17:00)
--- NOTE | 2017-11-14 17:11 | P.CONGS ---
[facility] Gen Surgery Consult Note Consult date: 11/14/17 Reason for consult: abdominal pain Requesting physician: Deniz Torres Narrative: This is a 57 year old male with a known history of LEFT adrenal pheochromocytoma. He has been followed by Dr. Weldon and was scheduled for an adrenalectomy on August 17, 2017. He did not show for surgery and he has not followed up in the office. He also missed an appointment last week with Dr. Duong. He does report that on Sunday he ate some roast beef and brussel spouts that didn't taste right. After that he developed an increase in abdominal pain with some associated mild nausea. He reports he has been drink 6 beers daily and up to 12 ibuprofen to help with the pain. A CT abdomen pelvis was done in the ED which showed the LEFT adrenal gland mass has enlarged since last imaging available. His WBC is normal. He is slightly anemic. His creatine is elevated at 1.32. A General Surgery consultation has been requested. Review of Systems All other systems reviewed negative except as stated in [facility] - History History Provided By: Patient - Medical History Medical History: Medical History (Last Reviewed 11/14/17 @ 17:01 by HEATHER Mac) Alcohol abuse Pheochromocytoma Sciatic nerve injury - Surgical History Surgical History: Surgical History (Last Reviewed 11/14/17 @ 17:01 by HEATHER Mac) H/O right knee surgery - Family History Family History: Family History (Last Updated 11/14/17 @ 15:36 by Deniz Torres DO) Other Lung cancer - Tobacco History Tobacco Use In Past 30 Days: Yes Smoking Status: Current every day smoker Tobacco Type: Cigarettes - Alcohol History How Often Do You Have a Drink Containing Alcohol: 4 or more times a week - Substance Use Type Marijuana Status: Active - Travel History Recent Travel in the [place] Within the Last 8 Weeks: No Recent Travel Out of the Country Within the Last 8 Weeks: No - Immunization History Tetanus Immunization: Unsure Medications and Allergies Allergies Allergy/AdvReac Type Severity Reaction Status Date / Time No Known Allergies Unknown Uncoded 12/26/16 05:15 Home Medications Medication Instructions Recorded Confirmed Type No Known Home Medications 11/14/17 11/14/17 History Active Medications: Active Medications Acetaminophen (Tylenol) 650 mg PO Q4H PRN PRN Reason: Temp > 100.4 Flumazenil (Romazecon Inj) 0.2 mg IV.PUSH Q1M PRN PRN Reason: OVERSEDATION Dextrose/Sodium Chloride (D5w/Normal Saline Inj) 1,000 mls @ 100 mls/hr IV.CONT .Q10H ZANE Lorazepam (Ativan) 1 mg PO Q4H PRN PRN Reason: for CIWA 8-10 Lorazepam (Ativan) 2 mg PO Q2H PRN PRN Reason: for CIWA 11-14 Lorazepam (Ativan Inj) 2 mg IV.PUSH Q15M PRN PRN Reason: for CIWA > 20 Lorazepam (Ativan Inj) 2 mg IV.PUSH Q1H PRN PRN Reason: for CIWA 15-20 Morphine Sulfate (Morphine Inj) 4 mg IV.PUSH Q4H PRN PRN Reason: Pain 6-10 Ondansetron HCl (Zofran Inj) 4 mg IV.PUSH Q6H PRN PRN Reason: NAUSEA OR VOMITING Pantoprazole Sodium (Protonix) 40 mg PO BID ZANE Senna/Docusate Sodium (Coreen-Colace) 1 tab PO BID ZANE Sodium Chloride (Ns Flush) 2 ml IV.FLUSH PRN PRN PRN Reason: FLUSH AFTER USING IV ACCESS Exam Vital signs: Vital Signs 11/14/17 10:20 11/14/17 11:12 11/14/17 13:57 Temperature 98.6 F Pulse Rate 93 H 94 H Respiratory Rate 16 18 Blood Pressure 165/84 H 136/78 Pulse Oximetry 100 97 11/14/17 14:23 Temperature Pulse Rate Respiratory Rate 18 Blood Pressure Pulse Oximetry Intake & Output 11/13/17 11/14/17 11/14/17 18:59 06:59 18:59 Weight 77.111 kg Narrative: GENERAL: 57 year old male resting in bed in no acute distress. SKIN: Warm and dry. He has multiple tattoos. HEAD: Atraumatic. Normocephalic. EYES: Pupils equal and round. No scleral icterus. No injection or drainage. ENT: No nasal bleeding or discharge. Mucous membranes pink and moist. NECK: Trachea midline. CARDIOVASCULAR: Regular rate and rhythm. RESPIRATORY: No accessory muscle use. Clear to auscultation. Breath sounds equal bilaterally. GASTROINTESTINAL: Abdomen soft, nondistended. Tenderness in LEFT lower quadrant with palpation. No visible scars or hernias. MUSCULOSKELETAL: Extremities without clubbing, cyanosis, or edema. No obvious deformities. NEUROLOGICAL: Awake and alert. No obvious cranial nerve deficits. Motor grossly within normal limits. Five out of 5 muscle strength in the arms and legs. Normal speech. PSYCHIATRIC: Appropriate mood and affect; insight and judgment normal. Results - Labs 11/15/17 04:35 11/15/17 13:13 Laboratory Results - last 24 hr 11/14/17 11/14/17 11/14/17 10:42 10:42 13:49 WBC 9.2 RBC 3.79 L Hgb 10.0 L Hct 31.9 L MCV 84.1 MCH 26.2 L MCHC 31.2 L RDW 18.5 H Plt Count 626 H MPV 7.3 Neut % (Auto) 69.2 Lymph % (Auto) 20.0 [place] % (Auto) 8.0 Eos % (Auto) 1.3 Baso % (Auto) 1.5 Neut # (Auto) 6.4 Lymph # (Auto) 1.8 [place] # (Auto) 0.7 Eos # (Auto) 0.1 Baso # (Auto) 0.1 WBC Differential . Differential Comment Auto diff final Sodium 136 Potassium 3.4 L Chloride 104 Carbon Dioxide 22.7 Anion Gap 9 BUN 15 Creatinine 1.32 H Estimated GFR 68 L Random Glucose 87 Calcium 9.1 Total Bilirubin 0.2 AST 13 L ALT 19 Alkaline Phosphatase 147 H Total Protein 7.9 Albumin 3.2 L Lipase 111 Urine Color Straw Urine Clarity Clear Urine pH 6.0 Ur Specific [place] 1.019 Urine Protein 30 H Urine Glucose (UA) Negative Urine Ketones Negative Urine Occult Blood Negative Urine Nitrate Negative Urine Bilirubin Negative Urine Urobilinogen Less than 2 Ur Leukocyte Esterase Negative Urine RBC Less than 1 Urine WBC Less than 1 Micro UA Comment Culture not ind Ur Microscopic Review Not Reportable Urine Culture Comments Culture not ind - Imaging Imaging: ITS Impressions Abdomen/Pelvis CT 11/14/17 10:34 CONCLUSION: 1. The heterogeneous left adrenal gland mass has enlarged compared to the April 2017 examination measuring up to 7.8 cm. The appearance remains suspicious for a malignant adrenal gland mass. Suggest surgical consultation for possible excision of this mass. One could consider percutaneous biopsy, if needed. 2. Moderate atherosclerotic disease. Assessment and Plan - Assessment (1) Adrenal mass, left Code(s): E27.9 - Disorder of adrenal gland, unspecified Status: Acute Plan: 57 year old male with known LEFT adrenal mass -Would recommend acutely treating patient for pain -Regular diet -Once pain controlled patient can be DCed from hospital and follow up with Dr. Weldon as an outpatient for timing of surgery -No acute surgical interventions needed at this time -Discussed with patient -Thank you for this consult; We will continue to follow - Plan Discussed Condition With: Dr. Lay Ferrer - Attending Attestation I CERTIFY AND ATTEST I PERSONALLY EXAMINED THE PATIENT. SOFTWARE TESTER DOCUMENTED OUR VISIT. KNOWN PHEOCHROMOCYTOMA AND FOLLOWED BY DR WELDON. DID NOT SHOW UP FOR SCHEDULED SURGERY. WILL RESCHEDULE FU IN OFFICE. NO ACUTE PROBLEM.
[2017-11-14] MEDS: Senna/Docusate Sodium 8.6/50 MG Tablet PO SCH (20:34)
[2017-11-15] MEDS: Dextrose 5%/NaCl 0.9% Inj 1,000 ML IV.CONT SCH (03:58)
[2017-11-15 05:24] LABS: Baso # (Auto) 0.1 th/mm3 (0.0-0.2); Baso % (Auto) 1.4 % (0.0-2.0); Eos # (Auto) 0.2 th/mm3 (0.0-0.4); Eos % (Auto) 2.1 % (0.0-4.0); Hematocrit 30.2 % (39.0-51.0); Hemoglobin 9.6 gm/dL (13.0-17.0); Lymph # (Auto) 1.7 th/mm3 (1.0-4.8); Lymph % (Auto) 17.1 % (9.0-44.0); Mean Corpuscular HGB Conc 31.7 % (32.0-36.0); Mean Corpuscular Hemoglobin 26.6 pg (27.0-34.0); Mean Corpuscular Volume 83.8 fL (80.0-100.0); Mean Platelet Volume 7.7 fL (7.0-11.0); Mono # (Auto) 0.8 th/mm3 (0.0-0.9); Mono % (Auto) 8.3 % (0.0-8.0); Neut % (Auto) 71.1 % (16.0-70.0); Platelet Count 594 th/mm3 (150-450); White Blood Count 9.9 th/mm3 (4.0-11.0)
[2017-11-15 05:47] LABS: Albumin 2.9 g/dL (3.4-5.0); Anion Gap 7 meq/L (5-15); Aspartate Aminotransferase 16 U/L (15-37); Blood Urea Nitrogen 17 mg/dL (7-18); Calcium 8.4 mg/dL (8.5-10.1); Carbon Dioxide 27.5 meq/L (21.0-32.0); Chloride 105 meq/L (98-107); Glomerular Filtration Rate 50 mL/min (>89); Glucose,Random 167 mg/dL (74-106); Lipase 184 U/L (73-393); Potassium 4.1 meq/L (3.5-5.1); Sodium 139 meq/L (136-145)
[2017-11-15 05:48] LABS: Alanine Aminotransferase 19 U/L (12-78)
[2017-11-15 05:50] LABS: Alkaline Phosphatase 147 U/L (45-117); Total Protein 7.4 g/dL (6.4-8.2)
--- NOTE | 2017-11-15 07:41 | P.PN ---
Subjective Interval history: Patient doing well, F/V/S. Patient is concerned that he will still be in pain once he leaves the hospital. He wants to make sure that he has an outpatient F/ U. Physical Exam Vital signs: Vital Signs 11/14/17 10:20 11/14/17 11:12 11/14/17 13:57 Temperature 98.6 F Pulse Rate 93 H 94 H Respiratory Rate 16 18 Blood Pressure 165/84 H 136/78 Pulse Oximetry 100 97 11/14/17 14:23 11/14/17 17:28 11/14/17 19:35 Temperature 97.5 F L Pulse Rate 63 84 Respiratory Rate 18 20 16 Blood Pressure 180/92 H 136/80 Pulse Oximetry 99 100 11/14/17 20:00 11/14/17 23:52 11/15/17 03:55 Temperature 98.9 F 98.1 F Pulse Rate 80 68 Respiratory Rate 18 16 16 Blood Pressure 149/80 H 163/86 H Pulse Oximetry 100 100 Intake & Output 11/14/17 11/15/17 11/15/17 18:59 06:59 18:59 Intake Total 175 / 175 1000 / 1000 Balance 175 / 175 1000 / 1000 Weight 77.111 kg Intake: IV 1000 / 1000 D5W/Normal Saline Inj 1,000 ML 1000 / 1000 @ 100 mls/hr IV.CONT .Q10H ZANE Rx#:[id number] Oral 175 / 175 Other: Date of Last Bowel Movement 11/14/17 Weight On Admission 77.111 kg Narrative: GENERAL: thin, AAM, lying comfortably in bed SKIN: Warm and dry. HEAD: Normocephalic. EYES: No scleral icterus. No injection or drainage. NECK: Supple, trachea midline. No JVD or lymphadenopathy. CARDIOVASCULAR: Regular rate and rhythm without murmurs, gallops, or rubs. RESPIRATORY: Breath sounds equal bilaterally. No accessory muscle use. GASTROINTESTINAL: Abdomen soft, non-tender, nondistended. MUSCULOSKELETAL: No cyanosis, or edema. BACK: Nontender without obvious deformity. No CVA tenderness. Results - Labs CBC & Chem 7: 11/15/17 04:35 11/15/17 04:35 Laboratory Results - last 24 hr 11/14/17 11/14/17 11/14/17 10:42 10:42 13:49 WBC 9.2 RBC 3.79 L Hgb 10.0 L Hct 31.9 L MCV 84.1 MCH 26.2 L MCHC 31.2 L RDW 18.5 H Plt Count 626 H MPV 7.3 Neut % (Auto) 69.2 Lymph % (Auto) 20.0 [place] % (Auto) 8.0 Eos % (Auto) 1.3 Baso % (Auto) 1.5 Neut # (Auto) 6.4 Lymph # (Auto) 1.8 [place] # (Auto) 0.7 Eos # (Auto) 0.1 Baso # (Auto) 0.1 WBC Differential . Differential Comment Auto diff final Sodium 136 Potassium 3.4 L Chloride 104 Carbon Dioxide 22.7 Anion Gap 9 BUN 15 Creatinine 1.32 H Estimated GFR 68 L Random Glucose 87 Calcium 9.1 Total Bilirubin 0.2 AST 13 L ALT 19 Alkaline Phosphatase 147 H Total Protein 7.9 Albumin 3.2 L Lipase 111 Urine Color Straw Urine Clarity Clear Urine pH 6.0 Ur Specific [place] 1.019 Urine Protein 30 H Urine Glucose (UA) Negative Urine Ketones Negative Urine Occult Blood Negative Urine Nitrate Negative Urine Bilirubin Negative Urine Urobilinogen Less than 2 Ur Leukocyte Esterase Negative Urine RBC Less than 1 Urine WBC Less than 1 Micro UA Comment Culture not ind Ur Microscopic Review Not Reportable Urine Culture Comments Culture not ind 11/15/17 11/15/17 04:35 04:35 WBC 9.9 RBC 3.60 L Hgb 9.6 L Hct 30.2 L MCV 83.8 MCH 26.6 L MCHC 31.7 L RDW 19.0 H Plt Count 594 H MPV 7.7 Neut % (Auto) 71.1 H Lymph % (Auto) 17.1 [place] % (Auto) 8.3 H Eos % (Auto) 2.1 Baso % (Auto) 1.4 Neut # (Auto) 7.0 Lymph # (Auto) 1.7 [place] # (Auto) 0.8 Eos # (Auto) 0.2 Baso # (Auto) 0.1 WBC Differential . Differential Comment Auto diff final Sodium 139 Potassium 4.1 Chloride 105 Carbon Dioxide 27.5 Anion Gap 7 BUN 17 Creatinine 1.71 H Estimated GFR 50 L Random Glucose 167 H Calcium 8.4 L Total Bilirubin 0.2 AST 16 ALT 19 Alkaline Phosphatase 147 H Total Protein 7.4 Albumin 2.9 L Lipase 184 Urine Color Urine Clarity Urine pH Ur Specific Alexis Urine Protein Urine Glucose (UA) Urine Ketones Urine Occult Blood Urine Nitrate Urine Bilirubin Urine Urobilinogen Ur Leukocyte Esterase Urine RBC Urine WBC Micro UA Comment Ur Microscopic Review Urine Culture Comments - Imaging Impressions Abdomen/Pelvis CT 11/14/17 10:34 CONCLUSION: 1. The heterogeneous left adrenal gland mass has enlarged compared to the April 2017 examination measuring up to 7.8 cm. The appearance remains suspicious for a malignant adrenal gland mass. Suggest surgical consultation for possible excision of this mass. One could consider percutaneous biopsy, if needed. 2. Moderate atherosclerotic disease. Assessment and Plan - Assessment (1) Adrenal mass, left Code(s): E27.9 - Disorder of adrenal gland, unspecified Status: Acute (2) Intractable abdominal pain Code(s): R10.9 - Unspecified abdominal pain Status: Acute (3) Hypertension Code(s): I10 - Essential (primary) hypertension Status: Acute (4) Acute renal failure Code(s): N17.9 - Acute kidney failure, unspecified Status: Acute - Plan This is a 57 y/o AAM with PMHx of known Pheochromocytoma and HTN also found to have OSMANI and admitted for IP mgmt, HD#2 1. Pheochromocytoma -Chronic -Follows with surgery and oncology as outpatient, difficulties keeping appt. secondary to insurance problems -He presents abdominal pain, CT shows increase in size of the left adrenal gland mass -General surgery consulted, no surgical intervention at this time- will scheduled outpatient F/U -Patient unable to tolerate prazosin. Blood pressure is currently controlled. Monitor. 2. Abdominal pain, due to above. As mentioned above the pheochromocytoma has increased in size. The patient has also been taking 12 ibuprofens a day and drinking a 6 pack daily which could certainly increase abdominal pain by way of gastritis and peptic ulcer disease. -Protonix p.o. twice daily. -Pain control as needed. Currently has IV morphine available. -instructed patient not to take ibuprofen in such large quantities for so long. 3. Alcohol abuse The patient drinks a 6 pack daily. -Cessation instruction. -CIWA protocol. 4. OSMANI -Creatinine 1.71 on Admission (baseline 1.30) -Getting IVF, recheck BMP at 1300 -Likely due to IBU, advised to avoid large quantities 5. Nicotine abuse -Smokes 1PPD. -cessation instruction. 6. Anemia: Chronic, Hgb 9.6, asymptomatic, FeSulfate. -Hemoccult pending 7. PPx: SCDs 8. D/C pending BMP results Code Status: full Discussed Condition With: patient, RN, CM
[2017-11-15] MEDS ORDERED: Sod Chloride 0.9% Inj 1,000 ML IV.CONT SCH (07:43)
[2017-11-15] MEDS ORDERED: Sod Chloride 0.9% Inj 1,000 ML IV.SIG SCH (07:45)
[2017-11-15] MEDS: Senna/Docusate Sodium 8.6/50 MG Tablet PO SCH (08:55)
[2017-11-15 09:03] VITALS: RESP 18
[2017-11-15 12:02] VITALS: BP 182/98; PULSE 75; TEMP 98.1; O2SAT 99
[2017-11-15] MEDS ORDERED: Prazosin HCl 1 MG Capsule PO SCH (12:15)
[2017-11-15 13:45] LABS: Calcium 8.3 mg/dL (8.5-10.1)
--- NOTE | 2017-11-15 14:47 | P.PNGS ---
Subjective Interval history: Resting in bed Feels okay to go home today and follow up with Dr. Weldon next week Physical Exam Vital signs: Vital Signs 11/14/17 17:28 11/14/17 19:35 11/14/17 20:00 Temperature 97.5 F L Pulse Rate 63 84 Respiratory Rate 20 16 18 Blood Pressure 180/92 H 136/80 Pulse Oximetry 99 100 11/14/17 23:52 11/15/17 03:55 11/15/17 08:59 Temperature 98.9 F 98.1 F 97.6 F Pulse Rate 80 68 55 L Respiratory Rate 16 16 18 Blood Pressure 149/80 H 163/86 H 181/88 H Pulse Oximetry 100 100 100 11/15/17 12:01 Temperature 98.1 F Pulse Rate 75 Respiratory Rate 18 Blood Pressure 182/98 H Pulse Oximetry 99 Intake & Output 11/14/17 11/15/17 11/15/17 18:59 06:59 18:59 Intake Total 175 / 175 1000 / 1000 1000 / 1000 Balance 175 / 175 1000 / 1000 1000 / 1000 Weight 77.111 kg Intake: IV 1000 / 1000 1000 / 1000 D5W/Normal Saline Inj 1,000 ML 1000 / 1000 @ 100 mls/hr IV.CONT .Q10H ZANE Rx#:[id number] NS Inj 1,000 ML @ Wide Open IV. 1000 / 1000 SIG BOLUS ZANE Rx#:[id number] Oral 175 / 175 Other: Date of Last Bowel Movement 11/14/17 Weight On Admission 77.111 kg Narrative: Alert and awake Abd: soft; minimal tenderness in LLQ Results - Labs 11/15/17 04:35 11/15/17 13:13 Laboratory Results - last 24 hr 11/15/17 11/15/17 11/15/17 04:35 04:35 13:13 WBC 9.9 RBC 3.60 L Hgb 9.6 L Hct 30.2 L MCV 83.8 MCH 26.6 L MCHC 31.7 L RDW 19.0 H Plt Count 594 H MPV 7.7 Neut % (Auto) 71.1 H Lymph % (Auto) 17.1 [place] % (Auto) 8.3 H Eos % (Auto) 2.1 Baso % (Auto) 1.4 Neut # (Auto) 7.0 Lymph # (Auto) 1.7 [place] # (Auto) 0.8 Eos # (Auto) 0.2 Baso # (Auto) 0.1 WBC Differential . Differential Comment Auto diff final Sodium 139 141 Potassium 4.1 4.0 Chloride 105 108 H Carbon Dioxide 27.5 27.0 Anion Gap 7 6 BUN 17 15 Creatinine 1.71 H 1.20 Estimated GFR 50 L 76 L Random Glucose 167 H 118 H Calcium 8.4 L 8.3 L Total Bilirubin 0.2 AST 16 ALT 19 Alkaline Phosphatase 147 H Total Protein 7.4 Albumin 2.9 L Lipase 184 - Imaging Imaging: ITS Impressions Abdomen/Pelvis CT 11/14/17 10:34 CONCLUSION: 1. The heterogeneous left adrenal gland mass has enlarged compared to the April 2017 examination measuring up to 7.8 cm. The appearance remains suspicious for a malignant adrenal gland mass. Suggest surgical consultation for possible excision of this mass. One could consider percutaneous biopsy, if needed. 2. Moderate atherosclerotic disease. Assessment and Plan - Assessment (1) Adrenal mass, left Code(s): E27.9 - Disorder of adrenal gland, unspecified Status: Acute Plan: 57 year old male with known LEFT adrenal mass -Would recommend acutely treating patient for pain -Regular diet -No acute surgical interventions needed at this time -Restarted alpha blockers -Left rx for alpha blockers and [place] -Follow up with Dr. Weldon Nov 22 at 4PM -GS clear for DC - Attending Attestation I CERTIFY AND ATTEST I PERSONALLY EXAMINED THIS PATIENT. CANVASS MANAGER DOCUMENTED OUR VISIT. PT CAN FU WITH DR WELDON IN THE OFFICE NEXT WEEK. APPT GIVEN FOR SUNDAY AT 4PM. PT AWARE OF APPT. CAN DC WITH [employer]. BALDOMERO STODDARD MD FACS
== END 2017-11-15 15:01 | disposition home or self-care (01) ==
LOC: NEPD 09:58 → NEDA 09:58 → NEPFCDU 16:18
PROVIDERS: ADMIT Family Medicine; ATTEND Family Medicine
DX: D35.00 Benign neoplasm of unspecified adrenal gland; F12.90 Cannabis use, unspecified, uncomplicated; D64.9 Anemia, unspecified; R10.12 Left upper quadrant pain; F17.210 Nicotine dependence, cigarettes, uncomplicated; I10 Essential (primary) hypertension; F10.10 Alcohol abuse, uncomplicated; Z80.1 Family history of malignant neoplasm of trachea, bronchus and lung; F32.9 Major depressive disorder, single episode, unspecified; N17.9 Acute kidney failure, unspecified; E27.9 Disorder of adrenal gland, unspecified